=== PATIENT | female | born 1950 | race Hispanic/Latino ===

== ENCOUNTER 2017-11-14 12:35 | Observation (INO) | payer MEDICARE ==
[~2017-11-14] VITALS: Ht 149.9 cm; Wt 57.7 kg
[~2017-11-14 12:35] MED LIST: CARVEDILOL12.5 MG PO; CITALOPRAM HBR20 MG PO; CRESTOR10 MG PO; FERROUS SULFAT325 MG PO; HUMALOG100 UNIT/1 SC; LISINOPRIL2.5 MG PO; METOCLOPRAM5 MG/5 ML PO; NEPHRO-VITE TABL1 EA PO; PANTOPRAZOLE SO40 MG PO
[2017-11-14] MEDS ORDERED: SODIUM CHLORIDE 0.9% 1000ML 1,000 ML IV STA (12:39)
--- NOTE | 2017-11-14 13:25 | Diagnostic Imaging Report ---
EXAMINATION: CHEST SINGLE (PORTABLE) INDICATION: \S\ERMD ORDER \S\[id number] \S\1250 \S\Y COMPARISON: Chest radiograph 01/19/2017 FINDINGS: AP view TUBES and LINES: None. LUNGS: Lungs are well inflated. Lungs are clear. There is no evidence of pneumonia or pulmonary edema. PLEURA: No pleural effusion or pneumothorax. HEART AND MEDIASTINUM: Aortic arch calcifications. The cardiomediastinal silhouette is otherwise unremarkable. BONES AND SOFT TISSUES: No acute osseous lesion. Soft tissues are unremarkable. UPPER ABDOMEN: No free air under the diaphragm. IMPRESSION: No acute thoracic abnormality. Signed by: DR. Nathaniel Cuevas MD on 11/14/2017 1:21 PM
[2017-11-14 13:37] LABS: BASOPHILS % 0.4 % (0.0-1.0); EOSINOPHILS # (AUTO) 0.1 (0.0-0.4); EOSINOPHILS % 1.3 % (0.0-6.0); HEMATOCRIT 30.5 % (34.2-44.1); LYMPHOCYTES # (AUTO) 1.2 (1.0-3.2); LYMPHOCYTES % 15.4 % (18.0-39.1); MEAN CORPUSCULAR HEMOGLOBIN 31.3 pg (28-32); MEAN CORPUSCULAR HGB CONC 36.1 g/dL (31-35); MEAN CORPUSCULAR VOLUME 86.6 fL (81-99); MONOCYTES # (AUTO) 0.7 (0.2-0.8); MONOCYTES % 8.5 % (4.4-11.3); NEUTROPHILS # (AUTO) 5.8 (2.1-6.9); NEUTROPHILS % 74.1 % (38.7-80.0); PLATELET COUNT 124 x10e3/uL (140-360); RED BLOOD COUNT 3.52 x10e6/uL (3.6-5.1); RED CELL DISTRIBUTION WIDTH 12.3 % (11.7-14.4)
[2017-11-14 13:50] LABS: INR 1.14; PROTHROMBIN TIME 13.7 seconds (11.9-14.5)
[2017-11-14 13:51] LABS: PARTIAL THROMBOPLASTIN TIME 20.7 seconds (23.8-35.5)
--- NOTE | 2017-11-14 13:55 | Diagnostic Imaging Report ---
Exam: Head CT without contrast History: Syncope and fall, rule out bleed and mass. Comparison studies: None Technique: Axial images were obtained from the skull base to the vertex. Coronal and sagittal images reconstructed from the axial data. Intravenous contrast: None Findings: Scalp: No abnormalities. Bones: No fractures, blastic or lytic lesions. Brain sulci: Appropriate for age. Ventricles: Normal in size and configuration. No hydrocephalus. Extra-axial spaces: No masses, no fluid collection. Parenchyma: No abnormal densities. No masses, hemorrhage, acute or chronic vascular insults. Sellar/suprasellar region: No abnormalities. Craniocervical junction: Patent foramen magnum. No Chiari one malformation. Incidental findings: Carotid siphons atherosclerotic calcifications.. IMPRESSION: 1. No acute intracranial abnormalities. 2. No intracranial hemorrhage or mass. Signed by: DR Reji Maria M.D. on 11/14/2017 3:59 PM
[2017-11-14 14:00] LABS: ALBUMIN 3.1 g/dL (3.5-5.0); ANION GAP 14.7 mmol/L (8-16); CALCIUM 8.8 mg/dL (8.4-10.2); CREATININE, SERUM 1.47 mg/dL (0.57-1.11); POTASSIUM 3.7 mmol/L (3.5-5.1)
--- NOTE | 2017-11-14 14:02 | Diagnostic Imaging Report ---
History: Syncope and fall. Comparison studies: None Technique: Axial images were obtained through the cervical region. Coronal and sagittal images reconstructed from the axial data. Intravenous contrast: None Findings: Atlantoaxial articulation: Intact Alignment: Straightening of the normal cervical lordosis is likely positional. No acute subluxation. Cervicomedullary junction: No abnormalities. Patent foramen magnum. Soft tissues: No prevertebral edema or hematoma. Carotid artery atherosclerotic calcifications. Vertebrae: No fractures, neoplasm or infection. Degenerative changes: Mild multilevel degenerative changes without significant spinal canal stenosis. IMPRESSION: No acute fracture or subluxation demonstrated within the cervical spine. Signed by: DR Reji Maria M.D. on 11/14/2017 4:00 PM
[2017-11-14 14:08] LABS: B-TYPE NATRIURETIC PEPTIDE2 23.6 pg/mL (0-100)
[2017-11-14 14:30] LABS: BILIRUBIN,URINE NEGATIVE (NEGATIVE); COLOR,URINE YELLOW (YELLOW); KETONES,URINE NEGATIVE (NEGATIVE); LEUKOCYTE ESTERASE ,URINE 2+ (NEGATIVE); NITRITE,URINE NEGATIVE (NEGATIVE); URINE UROBILINOGEN 0.2 mg/dL (0.2 - 1)
[2017-11-14 14:32] LABS: PROTEIN,URINE DIPSTICK TRACE (NEGATIVE)
[2017-11-14] MEDS ORDERED: CALCITONIN-SAL3.7 ML (14:32)
[2017-11-14 14:33] LABS: CLARITY,URINE SL CLOUDY (CLEAR)
[2017-11-14] MEDS ORDERED: PIOGLITAZONE HC45 MG PO (14:33)
[2017-11-14] MEDS ORDERED: ASPIR 8181 MG PO (14:33)
[2017-11-14] MEDS ORDERED: NEPHRO-VITE TABL1 EA PO (14:33)
[2017-11-14 14:43] LABS: BACTERIA,URINE MODERATE /HPF; EPITHELIAL CELLS,URINE MANY /LPF; RBC,URINE 0-5 /HPF (0-5)
[2017-11-14] MEDS ORDERED: DEXTROSE 50% SYRINGE 50 ML IV PRN (15:30)
[2017-11-14] MEDS: SODIUM CHLORIDE 0.9% 1000ML 1,000 ML IV SCH (16:04)
[2017-11-14 16:58] VITALS: BP 117/61
[2017-11-14] MEDS: INSULIN REGULAR, HUMAN 100 UNIT/1 ML 3ML VIAL SQ SCH ×2 (17:16→21:52)
[2017-11-14 17:25] VITALS: BP 117/61
[2017-11-14 20:00] VITALS: BP 117/61
[2017-11-14 20:24] VITALS: BP 117/61
[2017-11-14 21:51] VITALS: BP 117/61
[2017-11-14 22:02] LABS: CREATINE KINASE 36 IU/L (29-168)
[2017-11-15] VITALS (8 sets, daily range): BP systolic 100–156; BP diastolic 57–80
[2017-11-15] MEDS: SODIUM CHLORIDE 0.9% 1000ML 1,000 ML IV SCH ×3 (02:32→16:55)
[2017-11-15 06:17] LABS: CREATINE KINASE MB 1.1 ng/mL (0-5.0)
[2017-11-15] MEDS: INSULIN REGULAR, HUMAN 100 UNIT/1 ML 3ML VIAL SQ SCH ×4 (07:30→20:18)
[2017-11-15] MEDS: CEFTRIAXONE SOD 1 GM VIAL IV SCH (11:55)
[2017-11-15 12:04] LABS: CHOL/HDL RATIO 8.5 (3.0-3.6)
--- NOTE | 2017-11-15 12:42 | History and Physical ---
PRIMARY CARE PHYSICIAN: Dr. Avery. CHIEF COMPLAINT: Elevated blood sugar. HISTORY OF PRESENT ILLNESS: A 66-year-old woman with a history of diabetes mellitus, now developing increasing blood sugar. Patient was walking to a soccer field when she became dizzy and almost passed out, falling. Her daughter caught her, but she did hit her frontal scalp region on the ground and a nearby car. She is admitted for further evaluation and management. Patient does admit to a syncopal episode in the past. 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 PAST SURGICAL HISTORY: Hysterectomy, tonsillectomy, appendectomy. ALLERGIES: PER THE ELECTRONIC MEDICAL RECORDS. FAMILY HISTORY/SOCIAL HISTORY: Patient is . She has 3 children. No alcohol, illicit drugs or cigarettes. MEDICATIONS: Per the electronic medical records. Medications reviewed. REVIEW OF SYSTEMS: Denies any dizziness, chest pain. VITAL SIGNS: Reviewed. PHYSICAL EXAMINATION GENERAL APPEARANCE: A tired-appearing woman resting in bed. HEENT: Anicteric. CARDIOVASCULAR: Normal S1/S2. LUNGS: Moderate breath sounds. ABDOMEN: Soft, nontender, nondistended. EXTREMITIES: No edema. SKIN: Dry. PSYCHIATRIC: Normal affect. NEUROLOGICALLY: Alert and oriented x3. Moving all extremities. LABS: Reviewed. ASSESSMENT AND PLAN: This is a 66-year-old woman. 1. Presyncope. She did not pass out. She had an echocardiogram last year which showed normal left ventricular ejection fraction. We can obtain an ultrasound of the carotids on this occasion to see if those are clear. 2. Diabetes mellitus type 2. Obtain hemoglobin A1c and lipid panel. 3. Acute kidney injury. Rehydrate, then reassess. 4. Urinary tract infection. Treat with antibiotics and follow up cultures. 5. Normocytic anemia, mild. Will follow. 6. Physical deconditioning. Physical therapy consultation. 7. CT scan imaging of the head. Negative for any acute abnormality or fracture. 8. Prophylaxis. Use PPI and SCDs. 9. Disposition. Monitor closely. Obtain ultrasound of the carotids. Physical therapy consultation. Discharge planning. Job#: [id number] [place]
[2017-11-15] MEDS: CARVEDILOL 12.5 MG TAB PO SCH (16:29)
[2017-11-15] MEDS ORDERED: SIMVASTATIN 40 MG TAB PO SCH (21:00)
[2017-11-16] VITALS (8 sets, daily range): BP systolic 126–176; BP diastolic 63–112
[2017-11-16] MEDS: SODIUM CHLORIDE 0.9% 1000ML 1,000 ML IV SCH ×3 (01:38→15:29)
--- NOTE | 2017-11-16 05:51 | Progress Note ---
DATE: November 16, 2017 TIME: 5:22 a.m. OVERNIGHT: No events. Ultrasound with possible narrowing of the carotid. REVIEW OF SYSTEMS: Denies any dizziness or chest pain. PHYSICAL EXAMINATION VITAL SIGNS: Reviewed. GENERAL: A tired-appearing woman resting in bed. HEENT: Anicteric. CARDIOVASCULAR: Normal S1 and S2. LUNGS: Moderate breath sounds. ABDOMEN: Soft, nontender and nondistended. EXTREMITIES: No edema or calf tenderness. NEUROLOGICAL: Alert and oriented times 3. Moving all extremities. SKIN: Dry. PSYCHIATRIC: Normal affect. LABS: Reviewed. MEDICATIONS: Reviewed. ASSESSMENT: A 66-year-old woman with: 1. Presyncope. 2. Right carotid disease. 3. Diabetes mellitus, type 2. 4. Acute kidney injury. 5. Urinary tract infection. 6. Normocytic anemia. 7. Physical deconditioning. PLAN 1. Ultrasound suggestive of possible disease of the right carotid. Will obtain renal function now. If GFR is more than 50, will obtain a CTA of the neck to further evaluate. 2. Continue physical therapy. 3. Diabetes is poor controlled. Hemoglobin A1c is 19.5. The patient is to be started on insulin today. Will start on insulin Levemir 7 units daily. The patient was on insulin Lispro at home. 4. LDL is 149 and triglycerides 222. The patient is allergic to simvastatin. Therefore, will use colestipol 1 g b.i.d. Will also add Zetia 10 mg daily for uncontrolled cholesterol. 5. Follow up urine culture. 6. Possible CTA later today. Job#: [id number] NICOLE
[2017-11-16 06:23] LABS: BASOPHILS % 0.2 % (0.0-1.0); EOSINOPHILS # (AUTO) 0.2 (0.0-0.4); EOSINOPHILS % 2.9 % (0.0-6.0); HEMATOCRIT 30.5 % (34.2-44.1); HEMOGLOBIN 10.2 g/dL (12.0-16.0); LYMPHOCYTES # (AUTO) 2.1 (1.0-3.2); LYMPHOCYTES % 35.6 % (18.0-39.1); MEAN CORPUSCULAR HEMOGLOBIN 30.6 pg (28-32); MEAN CORPUSCULAR HGB CONC 33.4 g/dL (31-35); MEAN CORPUSCULAR VOLUME 91.6 fL (81-99); MONOCYTES # (AUTO) 0.7 (0.2-0.8); MONOCYTES % 11.2 % (4.4-11.3); NEUTROPHILS % 49.9 % (38.7-80.0); PLATELET COUNT 110 x10e3/uL (140-360); RED BLOOD COUNT 3.33 x10e6/uL (3.6-5.1); RED CELL DISTRIBUTION WIDTH 12.8 % (11.7-14.4)
[2017-11-16 06:52] LABS: ANION GAP 8.8 mmol/L (8-16); CALCIUM 7.6 mg/dL (8.4-10.2); CREATININE, SERUM 0.97 mg/dL (0.57-1.11); POTASSIUM 3.8 mmol/L (3.5-5.1)
[2017-11-16] MEDS: INSULIN REGULAR, HUMAN 100 UNIT/1 ML 3ML VIAL SQ SCH ×4 (07:30→21:10)
[2017-11-16] MEDS: EZETIMIBE 10 MG TAB PO SCH (08:11)
[2017-11-16] MEDS: CARVEDILOL 12.5 MG TAB PO SCH ×2 (08:11→21:15)
[2017-11-16] MEDS: PANTOPRAZOLE SOD 40 MG TABEC PO SCH (08:11)
[2017-11-16] MEDS: ASPIRIN 81 MG CHEW TAB PO SCH (08:11)
[2017-11-16] MEDS: COLESTIPOL HCL 1 G TAB PO SCH ×2 (08:11→21:15)
[2017-11-16] MEDS: CITALOPRAM HYDROBROMIDE 20 MG TAB PO SCH (08:11)
[2017-11-16] MEDS: FERROUS SULFATE 325 MG TAB PO SCH (08:11)
[2017-11-16] MEDS: INSULIN DETEMIR 100 UNIT/ML PEN SQ SCH (08:12)
[2017-11-16] MEDS: CEFTRIAXONE SOD 1 GM VIAL IV SCH (10:30)
[2017-11-16] MEDS ORDERED: SODIUM CHLORIDE 0.9% 50ML 50 ML ONE (13:52)
[2017-11-16] MEDS ORDERED: IOPAMIDOL 370 MG/ML 200 ML INFUS..BTL INJ ONE (13:53)
[2017-11-17 00:04] VITALS: BP 140/65
[2017-11-17] MEDS: SODIUM CHLORIDE 0.9% 1000ML 1,000 ML IV SCH (01:05)
[2017-11-17 04:01] VITALS: BP 149/71
[2017-11-17] MEDS ORDERED: COLESTID1 G PO (06:17)
[2017-11-17] MEDS ORDERED: Insulin Detemir SQ (06:17)
[2017-11-17] MEDS ORDERED: ZETIA10 MG PO (06:17)
[2017-11-17 07:00] VITALS: BP 146/71
[2017-11-17] MEDS: INSULIN REGULAR, HUMAN 100 UNIT/1 ML 3ML VIAL SQ SCH ×2 (07:30→11:30)
[2017-11-17 08:00] VITALS: BP 146/71
[2017-11-17] MEDS: ASPIRIN 81 MG CHEW TAB PO SCH (08:14)
[2017-11-17] MEDS: COLESTIPOL HCL 1 G TAB PO SCH (08:14)
[2017-11-17] MEDS: CITALOPRAM HYDROBROMIDE 20 MG TAB PO SCH (08:14)
[2017-11-17] MEDS: CARVEDILOL 12.5 MG TAB PO SCH (08:15)
[2017-11-17] MEDS: FERROUS SULFATE 325 MG TAB PO SCH (08:15)
[2017-11-17] MEDS: PANTOPRAZOLE SOD 40 MG TABEC PO SCH (08:15)
[2017-11-17] MEDS: EZETIMIBE 10 MG TAB PO SCH (08:15)
[2017-11-17] MEDS: INSULIN DETEMIR 100 UNIT/ML PEN SQ SCH (08:15)
--- NOTE | 2017-11-17 10:11 | Diagnostic Imaging Report ---
History:Carotid disease, Comparison studies:None Technique: Axial images were obtained from the thoracic inlet. Coronal and sagittal images reconstructed from the axial data. Intravenous contrast: 100 cc of Omnipaque 300. Findings: Percentage of stenosis will be based on the NASCET criteria Aortic arch and major vessels: Patent. Nonstenotic atherosclerotic calcifications. Common origin of the brachiocephalic trunk and left common carotid artery. Common carotid arteries: Patent. No abnormalities. Right internal carotid artery: Patent. Calcified and noncalcified plaque at the bulb results in 40-65% stenosis. Nonstenotic atherosclerotic calcifications at the carotid siphons Left internal carotid artery: Patent. Atherosclerotic calcifications of the bulb and proximal internal carotid artery cervical segment results in less than 20% stenosis. Retropharyngeal course of the cervical segment. Atherosclerotic calcifications of the carotid siphons with less than 10% stenosis. Right vertebral artery: Patent. No abnormalities. Left vertebral artery: Patent. No abnormalities. Basilar artery: Patent. No abnormalities. Posterior cerebral arteries: Patent. No abnormalities. Anatomical variants: Acom: Patent . Pcoms: Not visualized on the lateral right. Hypoplastic left. Vertebral arteries: Col-dominant IMPRESSION: Cervical CTA: 1. Calcified and noncalcified plaque results in moderate stenosis of the right carotid bulb. 2. No other significant stenosis of the neck arteries Intracranial CTA: 1. Atherosclerotic calcifications of the carotid siphons without significant stenosis. The remaining intracranial vasculature is unremarkable. Signed by: DR Reji Maria M.D. on 11/17/2017 10:07 AM
[2017-11-17] MEDS: CEFTRIAXONE SOD 1 GM VIAL IV SCH (11:49)
[2017-11-17 11:50] VITALS: BP 113/58
--- NOTE | 2017-11-18 08:51 | Progress Note ---
DATE: November 16, 2017 TIME: 7 a.m. OVERNIGHT: No events. REVIEW OF SYSTEMS: Denies dizziness. PHYSICAL EXAMINATION VITAL SIGNS: Reviewed. GENERAL: A tired-appearing woman resting in bed. HEENT: Anicteric. CARDIOVASCULAR: Normal S1 and S2. LUNGS: Moderate breath sounds. ABDOMEN: Soft and nontender. EXTREMITIES: No edema. SKIN: Dry. PSYCHIATRIC: Normal affect. LABS: Reviewed. MEDICATIONS: Reviewed. ASSESSMENT: A 66-year-old woman with: 1. Presyncope. 2. Diabetes mellitus, type 2. 3. Urinary tract infection. 4. Normocytic anemia. 5. Physical deconditioning. PLAN 1. Continue physical therapy. 2. Continue diabetes management. 3. Follow up hemoglobin A1c and lipid panel. 4. Continue antibiotics for urinary tract infection. 5. Continue to follow up labs. Job#: [id number] NICOLE
--- NOTE | 2017-11-18 09:02 | Discharge Summary ---
PRINCIPAL DIAGNOSES 1. Presyncope. 2. Diabetes mellitus, type 2. 3. Acute kidney injury. 4. Urinary tract infection. 5. Normocytic anemia. 6. Physical deconditioning. SECONDARY DIAGNOSIS: Diabetes mellitus, type 2. CHIEF COMPLAINT: Elevated blood sugar. HISTORY OF PRESENT ILLNESS: A 66-year-old woman with elevated blood sugar. Refer to the H and P for further details. HOSPITAL COURSE: Patient was treated and medications were adjusted. Glucose improved. Hemoglobin A1c was 19.5 and poorly controlled. Patient is on Levemir regimen. Was treated with antibiotics for urinary tract infection. Will be discharged with Keflex. DISCHARGE MEDICATIONS: Per electronic medical record and include Keflex. FOLLOWUP: Primary care doctor in 1 week. CONDITION ON DISCHARGE: Stable and improving. DISCHARGE LOCATION: Home. EITAN CROOK MD Job#: [id number] [place]
== END 2017-11-17 15:30 | disposition home or self-care (01) ==
LOC: ER 12:35 → ERHOLD 15:34 → IMCU 16:25
PROVIDERS: ADMIT Internal Medicine; ATTEND Internal Medicine
DX: E11.65 Type 2 diabetes mellitus with hyperglycemia (principal); Z79.4 Long term (current) use of insulin; N39.0 Urinary tract infection, site not specified; N17.9 Acute kidney failure, unspecified; D64.9 Anemia, unspecified; R55 Syncope and collapse; R53.81 Other malaise; Z86.73 Personal history of transient ischemic attack (TIA), and cerebral infarction without residual deficits
CPT/HCPCS: 36415 ×4; 70450; 70496; 70498; 71045; 72125; 80048; 80053; 80061; 81001; 82550 ×2; 82553 ×2; 82948 ×4; 83036; 83605; 83880; 84484 ×2; 85025 ×2; 85610; 85730; 87086; 87400; 93005; 93880; 96372; 97116; 97161; 99284; G0378 ×4; G8978; G8979; G8980; J0696 ×3; J7030 ×4; Q9967

== ENCOUNTER 2018-07-24 14:40 | Emergency (ER) | payer MEDICARE ==
[~2018-07-24] VITALS: Ht 149.9 cm; Wt 52.2 kg
[~2018-07-24 14:40] MED LIST changes: +ASPIR 8181 MG PO; +CALCITONIN-SAL3.7 ML; +COLESTID1 G PO; +Insulin Detemir SQ; +PIOGLITAZONE HC45 MG PO; +ZETIA10 MG PO
--- OUTSIDE RECORDS SUMMARY | 2018-07-24 14:45 | XMS REPORT | Summary of Care ---
Author Author [facility] Organization [facility] Address Unknown Phone Unavailable Encounter GABRIELLA Ferrara(CAYLA) [id number] Date(s): 11/27/15 - 11/27/15 [facility] [address] [place] [address]- Discharge Disposition: Home Attending Physician: Genet Schmidt MD Admitting Physician: Genet Schmidt MD Referring Physician: Genet Schmidt MD Vital Signs No data available for this section Problem List Condition Effective Dates Status Health Status Informant Arthritis(Confirmed) Resolved Cholecystitis(Confir Resolved med) DM (diabetes Active mellitus), type 2(Confirmed) HTN Active (hypertension)(Confi rmed) Hyperlipidemia(Confi Active rmed) Allergies, Adverse Reactions, Alerts Substance Reaction Severity Status Zocor Active Medications No data available for this section Results No data available for this section Immunizations No data available for this section Procedures Procedure Date Related Diagnosis Body Site Appendectomy Cataract surgery1 Cholecystectomy Hysterectomy Tonsillectomy 1both eyes Social History Social History Type Response Substance Abuse Use: None.1 Sexual Sexually active: No. Exercise Exercise duration: 0. Employment/School 2, 3 Alcohol Never Smoking Status Never smoker; Exposure to Tobacco Smoke None; Cigarette Smoking Last 365 Days No; Reg Smoking Cessation Counseling No 1denies 2Retired 3retired Assessment and Plan No data available for this section
--- OUTSIDE RECORDS SUMMARY | 2018-07-24 14:45 | XMS REPORT | Continuity of Care Document ---
Author Author Carter mejia Organization Interface Address Unknown Phone Unavailable Problems Problem Status Onset Date Classification Date Reported Comments Source HYPOGLYCEMIC Active 08/18/2016 [facility] UNK Active 07/07/2016 [facility] THROMBOCYTOPENIA Active 05/23/2016 [facility] Discharge Diagnosis: Drug-induced nausea and vomiting 05/20/2016 05/23/2016 [facility] Discharge Diagnosis: Thrombocytopenia 05/20/2016 05/23/2016 [facility] Discharge Diagnosis: Weakness 05/20/2016 05/23/2016 [facility] VOMITING Active 05/20/2016 [facility] D69.6- THROMBOCYTOPENIA, UNSPECIFIED Active 11/20/2015 [facility] HYPOGLYCEMIA Active 02/23/2014 [facility] Arthritis Resolved Problem 08/21/2016 [facility] Cholecystitis Resolved Problem 08/21/2016 [facility] DM , type 2(<span ID="[id number]</span>) Active Problem 08/21/2016 [facility] HTN (<span ID="[id number]">Confirmed</span>) Active Problem 08/21/2016 [facility] Hyperlipidemia Active Problem 08/21/2016 [facility] Thrombocytopenia Active Problem 08/21/2016 [facility] Hepatitis B Active Problem 08/21/2016 [facility] HYPOGLYCEMIA NOS Active [facility] THROMBOCYTOPENIA, UNSPECIFIED Active [facility] HEMORRHAGIC CONDITION, UNSPECIFIED Active [facility] ENCOUNTER FOR SCREENING FOR MALIGNANT NE Active [facility] ABNORMAL WEIGHT LOSS Active [facility] HYPOGLYCEMIA, UNSPECIFIED Active [facility] Medications Medication Details Route Status Patient Instructions Ordering Provider Order Date Source Prednisone 30 mg, 3 tab, Route: PO, Drug form: TAB, Daily, Dosing Weight 59.091, kg, Start date: 08/19/16 9:00:00 COMMUNICATIONS SUPERVISOR, Duration: 30 day, Stop date: 09/17/16 9:00:00 CSTNotes: (Same as: PredniSONE) Take with food. Inactive 08/19/2016 [facility] Nephro-Mc 1 tab, Route: PO, Drug Form: TAB, Dosing Weight 59.091, kg, Daily, Start date: 08/19/16 9:00:00 COMMUNICATIONS SUPERVISOR, Duration: 30 day, Stop date: 09/17/16 9:00:00 CSTNotes: (Same as: Nephro-Mc Rx and Diatx) Give with food. Inactive 08/19/2016 [facility] ferrous sulfate 325 mg, 1 tab, Route: PO, Drug form: ECTAB, BID, Dosing Weight 59.091, kg, Start date: 08/19/16 9:00:00 COMMUNICATIONS SUPERVISOR, Duration: 30 day, Stop date: 09/17/16 17:00:00 CSTNotes: Give with food. "Do Not Crush" Inactive 08/19/2016 [facility] Famotidine 20 MG Oral Tablet [Pepcid] 20 mg, 1 tab, Route: PO, Drug form: TAB, Daily, Dosing Weight 59.091, kg, Start date: 08/19/16 9:00:00 COMMUNICATIONS SUPERVISOR, Duration: 30 day, Stop date: 09/17/16 9:00:00 CSTNotes: (Same as: Pepcid) Inactive 08/19/2016 [facility] carvedilol 25 mg, 2 tab, Route: PO, Drug form: TAB, BID, Dosing Weight 59.091, kg, Start date: 08/19/16 9:00:00 COMMUNICATIONS SUPERVISOR, Duration: 30 day, Stop date: 09/17/16 21:00:00 CSTNotes: Give with food. (Same As: Coreg) Inactive 08/19/2016 [facility] *Remind pt to bring home med Crestor* *Remind pt to bring home med Crestor*, Reminder, Drug form: MISC, Route: MISC, QSHIFT, 08/19/16 0:00:00 COMMUNICATIONS SUPERVISOR, Duration: 30 day, Stop date: 09/17/16 16:00:00 COMMUNICATIONS SUPERVISOR Inactive 08/19/2016 [facility] Crestor 40 mg, Route: PO, Drug form: TAB, Bedtime, Dosing Weight 59.091, kg, Start date: 08/18/16 21:00:00 COMMUNICATIONS SUPERVISOR, Duration: 30 day, Stop date: 09/16/16 21:00:00 COMMUNICATIONS SUPERVISOR No Longer Active 08/19/2016 [facility] Metoclopramide 5 MG Oral Tablet 5 mg, 1 tab, Route: PO, Drug form: TAB, Bedtime, Dosing Weight 59.091, kg, Start date: 08/18/16 21:00:00 COMMUNICATIONS SUPERVISOR, Duration: 30 day, Stop date: 09/16/16 21:00:00 CSTNotes: (Same as: Reglan) Take 30 min before meals No Longer Active 08/19/2016 [facility] Saline Flush 0.9% 10 mL, Route: IVP, Drug Form: INJ, Dosing Weight 59.091, kg, PRN, PRN Line Flush, Start date: 08/18/16 10:28:00 COMMUNICATIONS SUPERVISOR, Duration: 30 day, Stop date: 09/17/16 10:27:00 CSTNotes: (Same as: BD Posiflush) No Longer Active 08/18/2016 [facility] Dextrose 12.5 mg, IVPB, ONCE, 0 Refill(s) Active 07/23/2016 [facility] Dextrose 12.5 mg, Route: IVPB, ONCE, Dosing Weight 60, kg, Priority: STAT, Start date: 07/23/16 10:27:00 CDT, Stop date: 07/23/16 10:27:00 CDT Inactive 07/23/2016 [facility] Sodium Chloride 0.154 MEQ/ML Injectable Solution 1,000 mL, Rate: 25 ml/hr, Infuse over: 40 hr, Route: IV, Dosing Weight 60 kg, Total Volume: 1,000, Start date: 07/23/16 7:03:00 CDT, Duration: 30 day, Stop date: 08/22/16 7:02:00 COMMUNICATIONS SUPERVISOR Inactive 07/23/2016 [facility] 1.5 ML Insulin Glargine 300 UNT/ML Prefilled Syringe [Toujeo] 80 unit, SUB-Q, Bedtime, 0 Refill(s) Active 07/16/2016 [facility] Ondansetron 4 MG Oral Tablet [Zofran] 4 mg=1 tab, PO, BID, X 5 day, # 10 tab, 0 Refill(s), Pharmacy: [facility] [id number] Active 05/20/2016 [facility] Sodium Chloride 0.154 MEQ/ML Injectable Solution 1,000 mL, 2,000 ml/hr, Infuse Over: 30 minutes, Route: IV, 1,000, Drug form: INJ, ONCE, Priority: STAT, Dosing Weight 56.364 kg, Start date: 05/20/16 17:28:00 CDT, Duration: 1 doses or times, Stop date: 05/20/16 17:28:00 CDT Inactive 05/20/2016 [facility] Ondansetron 4 mg, 2 mL, Route: IVP, Drug form: INJ, ONCE, Dosing Weight 56.364, kg, Priority: STAT, Start date: 05/20/16 17:28:00 CDT, Stop date: 05/20/16 17:28:00 CDTNotes: (Same as: Isamar) MEDICATION WASTE Product Size: 4 mg Product Wasted: ___ mg Inactive 05/20/2016 [facility] Saline Flush 0.9% 10 mL, Route: IVP, Drug Form: INJ, Dosing Weight 56.364, kg, PRN, PRN Line Flush, Start date: 05/20/16 17:28:00 CDT, Duration: 30 day, Stop date: 06/19/16 17:27:00 CDTNotes: (Same as: BD Posiflush) Inactive 05/20/2016 [facility] Famotidine 20 MG Oral Tablet [Pepcid] 20 mg=1 tab, PO, BID, # 60 tab, 0 Refill(s), Pharmacy: [facility] [id number] Active 04/28/2016 [facility] predniSONE 10 mg oral tablet 30 mg=3 tab, PO, Daily, # 90 tab, 0 Refill(s), Pharmacy: [facility] [id number] Active 04/28/2016 [facility] Crestor 40 mg, Route: PO, Drug form: TAB, Bedtime, Dosing Weight 50.54, kg, Start date: 04/25/16 21:00:00 CDT, Duration: 30 day, Stop date: 05/24/16 21:00:00 CDT No Longer Active 04/26/2016 [facility] Levemir 30 unit, 0.3 mL, Route: SUB-Q, Drug form: INJ, Bedtime, Dosing Weight 50.54, kg, Start date: 04/25/16 21:00:00 CDT, Duration: 30 day, Stop date: 05/24/16 21:00:00 CDTNotes: Same as Levemir Do not hold i nsulin without contacting prescriber WASTE: F/P - Black; E - Municipal Trash Bin "single patient use only" No Longer Active 04/26/2016 [facility] Levemir 10 unit, SUB-Q, Before Breakfast, 0 Refill(s) Active 04/25/2016 [facility] Metoclopramide 5 MG Oral Tablet 5 mg=1 tab, PO, Bedtime, 0 Refill(s) Active 04/25/2016 [facility] Humalog 30 unit, SUB-Q, TID-Before Meals, 0 Refill(s) Active 04/25/2016 [facility] ferrous sulfate 325 mg oral enteric coated tablet 325 mg=1 tab, PO, BID, 0 Refill(s) Active 04/25/2016 [facility] ferrous sulfate PO, 0 Refill(s) Active 04/25/2016 [facility] Nephro-Mc 1 tab, PO, Daily, 0 Refill(s) Active 04/25/2016 [facility] Aspirin 81 mg, PO, Daily, 0 Refill(s) Active 04/25/2016 [facility] NovoLog 25 unit, 0.25 mL, Route: SUB-Q, Drug form: SOLN, ONCE, Dosing Weight 50.54, kg, Start date: 04/25/16 17:13:00 CDT, Stop date: 04/25/16 17:13:00 CDTNotes: Roll in palms of hands gently; Do not shake vig orously. (Same as: NovoLOG) "single patient use only" WASTE: F/P - Black; E - Municipal Trash Bin Stable for 28 days at room temperature. Expires in days from Date Inactive 04/25/2016 [facility] NovoLog 10 unit, 0.1 mL, Route: SUB-Q, Drug form: SOLN, TID-Before Meals, Dosing Weight 50.54, kg, Start date: 04/25/16 16:30:00 CDT, Duration: 30 day, Stop date: 05/25/16 11:30:00 CDTNotes: Roll in palms of hands gently; Do not shake vigorously. (Same as: NovoLOG) "single patient use only" WASTE: F/P - Black; E - Municipal Trash Bin Stable for 28 days at room temperature. Expires in days from Date No Longer Active 04/25/2016 [facility] K-Dur 20 40 mEq, 2 tab, Route: PO, Drug form: ERTAB, ONCE, Dosing Weight 50.54, kg, Start date: 04/25/16 15:19:00 CDT, Stop date: 04/25/16 15:19:00 CDTNotes: (Same as: K-Dur 20) "Do Not Crush" With food and full glass of water Inactive 04/25/2016 [facility] aspirin 81 mg tablet, chewable 40.5 mg, 0.5 tab, Route: PO, Drug form: CHEWTAB, Daily, Dosing Weight 50.54, kg, Start date: 04/25/16 11:00:00 CDT, Duration: 30 day, Stop date: 05/25/16 9:00:00 CDTNotes: Take with food. No Longer Active 04/25/2016 [facility] Zofran 4 mg, 2 mL, Route: IVP, Drug form: INJ, Q4H, Dosing Weight 50.54, kg, PRN Nausea, Start date: 04/25/16 10:15:00 CDT, Duration: 30 day, Stop date: 05/25/16 10:14:00 CDTNotes: (Same as: Zofran) MEDICATION WASTE Product Size: 4 mg Product Wasted: ___ mg No Longer Active 04/25/2016 [facility] Tylenol 650 mg, 20.3 mL, Route: PO, Drug form: LIQ, Q6H, Dosing Weight 50.54, kg, PRN Other -See Comment, Start date: 04/25/16 10:15:00 CDT, Duration: 30 day, Stop date: 05/25/16 10:14:00 CDT, fever, pain, head acheNotes: Max [id number]/day (4 gm/day). (Same as: Tylenol) No Longer Active 04/25/2016 [facility] Restoril 15 mg, Route: PO, Drug form: CAP, Bedtime, Dosing Weight 50.54, kg, PRN Sleep, Start date: 04/25/16 10:15:00 CDT, Duration: 30 day, Stop date: 05/25/16 10:14:00 CDT Inactive 04/25/2016 [facility] Acetaminophen 325 MG / Hydrocodone Bitartrate 5 MG Oral Tablet [Maud 5/325] 1 tab, Route: PO, Drug Form: TAB, Dosing Weight 50.54, kg, Q4H, PRN Other -See Comment, Start date: 04/25/16 10:14:00 CDT, Duration: 30 day, Stop date: 05/25/16 10:13:00 CDTNotes: (Same as: Maud 325/5) Do not exceed 4gm/day of acetaminophen. No Longer Active 04/25/2016 [facility] Miralax 17 gm, 1 pkt, Route: PO, Drug form: PWDR, Daily, Dosing Weight 50.54, kg, PRN Constipation, Start date: 04/25/16 10:14:00 CDT, Duration: 30 day, Stop date: 05/25/16 10:13:00 CDTNotes: Dissolve in 8 oz of water or juice. (Same as: Miralax) No Longer Active 04/25/2016 [facility] Clonidine Hydrochloride 0.1 MG Oral Tablet 0.1 mg, 1 tab, Route: PO, Drug form: TAB, Q6H, Dosing Weight 50.54, kg, PRN Elevated BP, Start date: 04/25/16 10:14:00 CDT, Duration: 30 day, Stop date: 05/25/16 10:13:00 CDT, SBP > 165Notes: (Same As: Catapres) No Longer Active 04/25/2016 [facility] Robaxin 500 mg, Route: PO, Q8H, Dosing Weight 50.54, kg, Start date: 04/25/16 8:00:00 CDT, Duration: 30 day, Stop date: 05/25/16 0:00:00 CDT Inactive 04/25/2016 [facility] Zofran 4 mg, Route: IV, Q4H, Dosing Weight 50.54, kg, Start date: 04/25/16 4:00:00 CDT, Duration: 30 day, Stop date: 05/25/16 0:00:00 CDT Inactive 04/25/2016 [facility] Tylenol 650 mg, 2 tab, Route: PO, Drug form: TAB, Q6H, Dosing Weight 50.54, kg, PRN Headache 1-5, Start date: 04/25/16 1:49:00 CDT, Duration: 30 day, Stop date: 05/25/16 1:48:00 CDTNotes: Do not exceed 4 gm/day. (Same as: Tylenol) No Longer Active 04/25/2016 [facility] Acetaminophen 325 MG / Hydrocodone Bitartrate 5 MG Oral Tablet [Maud 5/325] 2 tab, Route: PO, Drug Form: TAB, Dosing Weight 50.54, kg, Q4H, PRN Pain Score 4-6, Start date: 04/25/16 1:48:00 CDT, Duration: 30 day, Stop date: 05/25/16 1:47:00 CDTNotes: (Same as: Maud 325/5) Do not exceed 4gm/day of acetaminophen. No Longer Active 04/25/2016 [facility] Zofran 4 mg, 2 mL, Route: IV, Drug form: INJ, Q4H, Dosing Weight 50.54, kg, PRN as needed for nausea/vomiting, Start date: 04/25/16 1:48:00 CDT, Duration: 30 day, Stop date: 05/25/16 1:47:00 CDTNotes: (Same as: Zofran) MEDICATION WASTE Product Size: 4 mg Product Wasted: ___ mg No Longer Active 04/25/2016 [facility] Robaxin 500 mg, 1 tab, Route: PO, Drug form: TAB, Q8H, Dosing Weight 50.54, kg, PRN Cramps, Start date: 04/25/16 1:47:00 CDT, Duration: 30 day, Stop date: 05/25/16 1:46:00 CDTNotes: (Same as:Robaxin) No Longer Active 04/25/2016 [facility] Acetaminophen 325 MG / Hydrocodone Bitartrate 5 MG Oral Tablet [Maud 5/325] 2 tab, Route: PO, Drug Form: TAB, Dosing Weight 50.54, kg, Q4H, PRN Pain Score 4-6, Start date: 04/25/16 1:45:00 CDT, Duration: 30 day, Stop date: 05/25/16 1:44:00 CDT Inactive 04/25/2016 [facility] Restoril 15 mg, 1 cap, Route: PO, Drug form: CAP, Bedtime, Dosing Weight 50.54, kg, PRN Sleep, Start date: 04/25/16 1:45:00 CDT, Duration: 30 day, Stop date: 05/25/16 1:44:00 CDTNotes: (Same As: Restoril) No Longer Active 04/25/2016 [facility] Immunoglobulins, Intravenous 100 MG/ML Injectable Solution 50 gm, 500 mL, Route: IVPB, Drug form: SOLN, Q24H, Dosing Weight 50.54, kg, Start date: 04/25/16 0:00:00 CDT, Duration: 2 doses or times, Stop date: 04/26/16 0:00:00 CDTNotes: Begin at 0.03 grams/kg/hr=0.5 mg/kg/min. Double the rate every 30 minutes as tolerated. Maximum recommended infusion rate: 0.48 grams/kg/hr=8 mg/kg/min for adults: Wise body weight of XX kg used for XX gm/kg per protocol WASTE: F/P - Red; E -Red Lot # Mfg: "blood product derivative" No Longer Active 04/25/2016 [facility] carvedilol 25 mg, 2 tab, Route: PO, Drug form: TAB, BID, Dosing Weight 50.54, kg, Start date: 04/24/16 23:28:00 CDT, Duration: 30 day, Stop date: 05/24/16 9:00:00 CDTNotes: Give with food. (Same As: Coreg) No Longer Active 04/25/2016 [facility] Diphenhydramine 25 mg, 1 tab, Route: PO, Drug form: TAB, ONCALL, Dosing Weight 50.54, kg, PRN Blood Transfusion, Start date: 04/24/16 23:22:00 CDT, Stop date: 05/24/16 23:21:00 CDT No Longer Active 04/25/2016 [facility] Tylenol 650 mg, 2 tab, Route: PO, Drug form: TAB, ONCALL, Dosing Weight 50.54, kg, PRN Blood Transfusion, Start date: 04/24/16 23:21:00 CDT, Duration: 30 day, Stop date: 05/24/16 23:20:00 CDTNotes: Do not exceed 4 gm/day. (Same as: Tylenol) No Longer Active 04/25/2016 [facility] Aspirin 81 MG Chewable Tablet 40.5 mg, 0.5 tab, Route: PO, Drug form: CHEWTAB, Q24H, Dosing Weight 50.54, kg, Start date: 04/24/16 23:00:00 CDT, Duration: 30 day, Stop date: 05/23/16 11:00:00 CDTNotes: Take with food. No Longer Active 04/25/2016 [facility] Lipitor 80 mg, 2 tab, Route: PO, Drug form: TAB, Bedtime, Start date: 04/24/16 23:00:00 CDT, Duration: 30 day, Stop date: 05/23/16 21:00:00 CDTNotes: (Same as: Lipitor) No Longer Active 04/25/2016 [facility] Insulin, Aspart, Human 3 unit, 0.03 mL, Route: SUB-Q, Drug form: SOLN, Bedtime, Dosing Weight 50.54, kg, PRN Blood Glucose Results, Start date: 04/24/16 22:30:00 CDT, Duration: 30 day, Stop date: 05/24/16 22:29:00 CDTNotes: Roll in palms of hands gently; Do not shake vigorously. (Same as: NovoLOG) "single patient use only" WASTE: F/P - Black; E - Municipal Trash Bin Stable for 28 days at room temperature. Expires in days from Date No Longer Active 04/25/2016 [facility] Dextrose 50% Syringe 12.5 gm, 25 mL, Route: IVP, Drug Form: INJ, Dosing Weight 50.54, kg, PRN, PRN Blood Glucose Results, Start date: 04/24/16 22:30:00 CDT, Duration: 30 day, Stop date: 05/24/16 22:29:00 CDT No Longer Active 04/25/2016 [facility] Glucagon 1 mg, Route: IM, Drug form: PDR/INJ, PRN, Dosing Weight 50.54, kg, PRN Blood Glucose Results, Start date: 04/24/16 22:30:00 CDT, Duration: 30 day, Stop date: 05/24/16 22:29:00 CDT No Longer Active 04/25/2016 [facility] NovoLOG FlexPen 12 unit, 0.12 mL, Route: SUB-Q, Drug form: SOLN, ONCE, Dosing Weight 50.54, kg, Start date: 04/24/16 22:28:00 CDT, Stop date: 04/24/16 22:28:00 CDTNotes: Roll in palms of hands gently; Do not shake vigorously. (Same as: NovoLOG) "single patient use only" WASTE: F/P - Black; E - Municipal Trash Bin Stable for 28 days at room temperature. Expires in days from Date Inactive 04/25/2016 [facility] insulin aspart 100 units/mL subcutaneous solution 15 unit=0.15 mL, SUB-Q, TID-Before Meals, # 10 mL, 0 Refill(s) Active 03/01/2014 [facility] insulin detemir 100 units/mL subcutaneous solution 30 unit=0.3 mL, SUB-Q, Bedtime, # 10 mL, 0 Refill(s) Active 03/01/2014 [facility] carvedilol 12.5 mg, 1 tab, Route: PO, Drug form: TAB, Q12H, Dosing Weight 64.545, kg, Start date: 02/28/14 21:00:00, Duration: 30 day, Stop date: 03/30/14 9:00:00Notes: Give with food. (Same As: Coreg) No Longer Active 03/01/2014 [facility] Sodium Chloride 0.9% IV 1,000 mL 1,000 mL, Rate: 125 ml/hr, Infuse over: 8 hr, Route: IV, Dosing Weight 64.545 kg, Total Volume: 1,000, Start date: 02/28/14 15:03:00, Duration: 30 day, Stop date: 03/30/14 15:02:00 No Longer Active 02/28/2014 [facility] Sodium Chloride 0.154 MEQ/ML Injectable Solution 125 mL, 125 ml/hr, Infuse Over: 1 hr, Route: IV, Continuous, Priority: STAT, Dosing Weight 64.545 kg, Start date: 02/28/14 15:00:00, Duration: 30 day, Stop date: 03/30/14 14:59:00 Inactive 02/28/2014 [facility] Potassium Chloride 20 mEq, 1 tab, Route: PO, Drug form: ERTAB, ONCE, Dosing Weight 64.545, kg, Start date: 02/28/14 12:03:00, Stop date: 02/28/14 12:03:00Notes: (Same as: K-Dur 20) "Do Not Crush" With food and full glass of water Inactive 02/28/2014 [facility] Potassium Chloride 20 mEq, 1 tab, Route: PO, Drug form: ERTAB, ONCE, Dosing Weight 64.545, kg, Start date: 02/27/14 8:17:00, Stop date: 02/27/14 8:17:00Notes: (Same as: K-Dur 20) "Do Not Crush" With food and full glass of water Inactive 02/27/2014 [facility] Levemir 30 unit, 0.3 mL, Route: SUB-Q, Drug form: INJ, Bedtime, Dosing Weight 64.545, kg, Start date: 02/25/14 21:00:00, Duration: 30 day, Stop date: 03/26/14 21:00:00Notes: Same as Levemir "single patient use only" No Longer Active 02/26/2014 [facility] Prinivil 20 mg, 1 tab, Route: PO, Drug form: TAB, Daily, Start date: 02/24/14 9:00:00, Duration: 30 day, Stop date: 03/25/14 9:00:00Notes: (Same as: Prinivil, Zestril) No Longer Active 02/24/2014 [facility] Hydrochlorothiazide 25 MG / Lisinopril 20 MG Oral Tablet 1 tab, Route: PO, Drug Form: TAB, Dosing Weight 64.545, kg, Daily, Start date: 02/24/14 9:00:00, Duration: 30 day, Stop date: 03/25/14 9:00:00 No Longer Active 02/24/2014 [facility] Aspirin 81 MG Chewable Tablet 40.5 mg, 0.5 tab, Route: PO, Drug form: CHEWTAB, Daily, Dosing Weight 64.545, kg, Start date: 02/24/14 9:00:00, Duration: 30 day, Stop date: 03/25/14 9:00:00Notes: Take with food. No Longer Active 02/24/2014 [facility] hydrochlorothiazide 25 mg oral tablet 25 mg, 1 tab, Route: PO, Drug form: TAB, Daily, Start date: 02/24/14 9:00:00, Duration: 30 day, Stop date: 03/25/14 9:00:00Notes: (Same as: Hydrodiuril) With food. No Longer Active 02/24/2014 [facility] NovoLog 15 unit, 0.15 mL, Route: SUB-Q, Drug form: SOLN, TID-Before Meals, Dosing Weight 64.545, kg, Start date: 02/24/14 7:30:00, Stop date: 03/25/14 16:30:00Notes: Roll in palms of hands gently; Do not shake vigorously. (Same as: NovoLOG) "single patient use only" Stable for 28 days at room temperature. Expires in days from Date No Longer Active 02/24/2014 [facility] Crestor 40 mg, 4 tab, Route: PO, Drug form: TAB, Bedtime, Dosing Weight 64.545, kg, Start date: 02/23/14 21:00:00, Duration: 30 day, Stop date: 03/24/14 21:00:00Notes: (Same As: Crestor) No Longer Active 02/24/2014 [facility] Levemir 25 unit, 0.25 mL, Route: SUB-Q, Drug form: INJ, Q12H, Dosing Weight 64.545, kg, Start date: 02/23/14 21:00:00, Duration: 30 day, Stop date: 03/25/14 9:00:00Notes: Same as Levemir "single patient use only" No Longer Active 02/24/2014 [facility] nitroglycerin 0.4 mg sublingual tablet 0.4 mg, 1 tab, Route: SL, Drug form: TAB, Q5Min, PRN Chest Pain, Start date: 02/23/14 17:20:00, Duration: 30 day, Stop date: 03/25/14 17:19:00Notes: (Same as:Nitroquick, Nitrostat) "Do Not Crush" Sublingual tablet No Longer Active 02/23/2014 [facility] atropine 0.5 mg, 5 mL, Route: IVP, Drug form: INJ, PRN, PRN Bradycardia, Start date: 02/23/14 17:20:00, Duration: 30 day, Stop date: 03/25/14 17:19:00 No Longer Active 02/23/2014 [facility] carvedilol 25 mg, 2 tab, Route: PO, Drug form: TAB, BID, Dosing Weight 64.545, kg, Start date: 02/23/14 17:00:00, Duration: 30 day, Stop date: 03/25/14 9:00:00Notes: Give with food. (Same As: Coreg) No Longer Active 02/23/2014 [facility] Saline Flush 0.9% 5 ml, Route: IVP, Drug Form: INJ, Dosing Weight 64.545, kg, PRN, PRN Line Flush, Start date: 02/23/14 16:52:00, Duration: 30 day, Stop date: 03/25/14 16:51:00Notes: (Same as: BD Posiflush) No Longer Active 02/23/2014 [facility] Sodium Chloride 0.0769 MEQ/ML Injectable Solution 1,000 mL, Rate: 125 ml/hr, Infuse over: 8 hr, Route: IV, Dosing Weight 64.545 kg, Total Volume: 1,000, Start date: 02/23/14 16:52:00, Duration: 30 day, Stop date: 03/25/14 16:51:00 No Longer Active 02/23/2014 [facility] Dextrose 50% Syringe 12.5 gm, 25 mL, Route: IVP, Drug Form: INJ, Dosing Weight 64.545, kg, PRN, PRN Blood Glucose Results, Start date: 02/23/14 16:52:00, Duration: 30 day, Stop date: 03/25/14 16:51:00 No Longer Active 02/23/2014 [facility] Glucagon 1 mg, Route: IM, Drug form: PDR/INJ, PRN, Dosing Weight 64.545, kg, PRN Blood Glucose Results, Priority: STAT, Start date: 02/23/14 16:52:00, Duration: 30 day, Stop date: 03/25/14 16:51:00 No Longer Active 02/23/2014 [facility] Ceftriaxone 1 gm, Route: IVPB, [id number], Dosing Weight 64.545, kg, Start date: 02/23/14 16:00:00, Duration: 30 day, Stop date: 03/24/14 16:00:00Notes: (Same As: Rocephin). Use with 100ml NS mini-bag PLUS and infuse over 30 min No Longer Active 02/23/2014 [facility] Glucagon 1 mg, Route: IM, PRN, Dosing Weight 64.545, kg, PRN Blood Glucose Results, Start date: 02/23/14 14:41:00, Duration: 30 day, Stop date: 03/25/14 14:40:00 Inactive 02/23/2014 [facility] Insulin, Aspart, Human 1 unit, 0.01 mL, Route: SUB-Q, Drug form: SOLN, Bedtime, Dosing Weight 64.545, kg, PRN Blood Glucose Results, Start date: 02/23/14 14:41:00, Duration: 30 day, Stop date: 03/25/14 14:40:00Notes: Roll in palms of hands gently; Do not shake vigorously. (Same as: NovoLOG) "single patient use only" Stable for 28 days at room temperature. Expires in days from Date No Longer Active 02/23/2014 [facility] Dextrose 50% Syringe 12.5 gm, 25 mL, Route: IVP, Drug Form: INJ, Dosing Weight 64.545, kg, PRN, PRN Blood Glucose Results, Start date: 02/23/14 14:41:00, Duration: 30 day, Stop date: 03/25/14 14:40:00 No Longer Active 02/23/2014 [facility] Tylenol 650 mg, Route: PO, Drug form: TAB, ONCE, Dosing Weight 64.545, kg, PRN Fever, Start date: 02/23/14 14:21:00, Stop date: 03/25/14 14:20:00 Inactive 02/23/2014 [facility] Insulin, Regular, Pork Route: SUB-Q, ONCE, Dosing Weight 64.545, kg, Start date: 02/23/14 14:19:00, Stop date: 02/23/14 14:19:00 Inactive 02/23/2014 [facility] Aspirin 81 MG Chewable Tablet 40.5 mg=0.5 tab, PO, Daily, # 30 tab, 0 Refill(s) Active 02/23/2014 [facility] Hydrochlorothiazide 25 MG / Lisinopril 20 MG Oral Tablet 1 tab, PO, Daily, # 30 tab, 0 Refill(s) No Longer Active 02/23/2014 [facility] Saline Flush 0.9% 5 mL, Route: IVP, Drug Form: INJ, Dosing Weight 64.545, kg, PRN, PRN Line Flush, Start date: 02/23/14 8:31:00, Duration: 30 day, Stop date: 03/25/14 8:30:00Notes: Same as: BD Posiflush Sterile No Longer Active 02/23/2014 [facility] Allergies, Adverse Reactions, Alerts Substance Category Reaction Severity Reaction type Status Date Reported Comments Source simvastatin Assertion Drug allergy Active [facility] Zocor Assertion Drug allergy Active [facility] Immunizations Immunization Date Given Site Status Last Updated Comments Source Results Order Name Results Value Reference Range Date Interpretation Comments Source CARDIAC ENZYMES Troponin-I null 0.00 - 0.40 08/18/2016 [facility] CHEM PANEL Calcium Lvl 8.4 mg/dL 8.5 - 10.5 08/18/2016 [facility] CHEM PANEL Total Protein 6.7 g/dL 6.4 - 8.4 08/18/2016 [facility] CHEM PANEL CO2 28 meq/L 24 - 32 08/18/2016 [facility] CHEM PANEL Chloride Lvl 101 meq/L 95 - 109 08/18/2016 [facility] CHEM PANEL Potassium Lvl 4.3 meq/L 3.5 - 5.1 08/18/2016 [facility] CHEM PANEL Sodium Lvl 140 meq/L 135 - 145 08/18/2016 [facility] CHEM PANEL Creatinine Lvl 1.30 mg/dL 0.50 - 1.40 08/18/2016 [facility] CHEM PANEL Glucose Lvl 272 mg/dL 70 - 99 08/18/2016 [facility] CHEM PANEL BUN 18 mg/dL 7 - 22 08/18/2016 [facility] CHEM PANEL Bili Total 0.8 mg/dL 0.2 - 1.3 08/18/2016 [facility] CHEM PANEL ALT 26 unit/L 0 - 65 08/18/2016 [facility] CHEM PANEL Albumin Lvl 3.4 g/dL 3.5 - 5.0 08/18/2016 [facility] CHEM PANEL Alk Phos 71 unit/L 39 - 136 08/18/2016 [facility] CHEM PANEL AST 19 unit/L 0 - 37 08/18/2016 [facility] CHEM PANEL eGFR See Note (08/18/16 10:48 AM) 08/18/2016 [facility] CHEM PANEL A/G Ratio 1.0 0.7 - 1.6 08/18/2016 [facility] CHEM PANEL B/C Ratio 14 6 - 25 08/18/2016 [facility] CHEM PANEL Globulin 3.3 g/dL 2.7 - 4.2 08/18/2016 [facility] CHEM PANEL AGAP 15.3 meq/L 10.0 - 20.0 08/18/2016 [facility] HEMATOLOGY Platelet 158 K/CMM 133 - 450 08/18/2016 [facility] HEMATOLOGY RDW 14.8 % 11.5 - 14.5 08/18/2016 [facility] HEMATOLOGY MPV 9.5 fL 7.4 - 10.4 08/18/2016 [facility] HEMATOLOGY WBC 7.2 K/CMM 3.7 - 10.4 08/18/2016 [facility] HEMATOLOGY Hgb 11.3 g/dL 12.0 - 16.0 08/18/2016 [facility] HEMATOLOGY RBC 3.94 M/CMM 4.20 - 5.40 08/18/2016 [facility] HEMATOLOGY Hct 34.8 % 36.0 - 48.0 08/18/2016 [facility] HEMATOLOGY MCV 88.1 fL 80.0 - 98.0 08/18/2016 [facility] HEMATOLOGY MCHC 32.6 g/dL 32.0 - 36.0 08/18/2016 [facility] HEMATOLOGY MCH 28.7 pg 27.0 - 31.0 08/18/2016 [facility] HEMATOLOGY Monocytes # 0.4 K/CMM 0.0 - 0.8 08/18/2016 [facility] HEMATOLOGY Lymphocytes # 1.1 K/CMM 1.0 - 5.5 08/18/2016 [facility] HEMATOLOGY Eosinophils # 0.1 K/CMM 0.0 - 0.5 08/18/2016 [facility] HEMATOLOGY Segs 77.6 % 45.0 - 75.0 08/18/2016 [facility] HEMATOLOGY Lymphocytes 14.8 % 20.0 - 40.0 08/18/2016 [facility] HEMATOLOGY Monocytes 5.6 % 2.0 - 12.0 08/18/2016 [facility] HEMATOLOGY Segs-Bands # 5.6 K/CMM 1.5 - 8.1 08/18/2016 [facility] HEMATOLOGY Basophils 0.6 % 0.0 - 1.0 08/18/2016 [facility] HEMATOLOGY Eosinophils 1.4 % 0.0 - 4.0 08/18/2016 [facility] URINE AND STOOL UA Turbidity Clear (08/18/16 10:48 AM) Clear 08/18/2016 [facility] URINE AND STOOL UA Bacteria Occasional /HPF None Seen /HPF 08/18/2016 [facility] URINE AND STOOL UA WBC null 0 - 5 08/18/2016 [facility] URINE AND STOOL UA Sq Epi Occasional /LPF Few /LPF 08/18/2016 [facility] URINE AND STOOL UA Leuk Est Negative (08/18/16 10:48 AM) Negative 08/18/2016 [facility] URINE AND STOOL UA pH 7.0 5.0 - 8.0 08/18/2016 [facility] URINE AND STOOL UA Protein 30 mg/dL Negative mg/dL 08/18/2016 [facility] URINE AND STOOL UA Glucose 500 mg/dL Negative mg/dL 08/18/2016 [facility] URINE AND STOOL UA Spec Grav 1.003 <=1.030 08/18/2016 [facility] URINE AND STOOL UA Blood Negative (08/18/16 10:48 AM) Negative 08/18/2016 [facility] URINE AND STOOL UA Nitrite Negative (08/18/16 10:48 AM) Negative 08/18/2016 [facility] URINE AND STOOL UA Ketones Negative mg/dL Negative mg/dL 08/18/2016 [facility] URINE AND STOOL UA Bili Negative *NA* (08/18/16 10:48 AM) Negative 08/18/2016 [facility] URINE AND STOOL UA Color Colorless 08/18/2016 [facility] URINE AND STOOL UA Urobilinogen <=1.0 mg/dL 0.1 - 1.0 08/18/2016 [facility] Brain wo contrast CT Brain wo contrast CT I have reviewed this examination and concur with the interpretation. 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 Coronal and sagittal reconstructions were obtained. Total exam DLP 982 mGy-cm FINDINGS: BRAIN PARENCHYMA: There are normal hebert-white interfaces. No evidence for subarachnoid, intraparenchymal or intraventricular hemorrhage. No significant extra-axial fluid collection, mass effect or shift. No evidence for an acute infarction. No mass lesions identified about the brain. VENTRICLES: Ventricles and sulci are within normal limits for the patient's age. ORBITS, MASTOIDS AND PARANASAL SINUSES: The visualized orbits and paranasal sinuses are unremarkable. The mastoid air cells are clear. SKULL: There are no osseous abnormalities. If there is further concern for intracranial pathology or acute stroke, MRI of the brain may be performed for complete assessment. IMPRESSION: Unremarkable noncontrast head CT. SL: [id number] 08/18/2016 - - Read by: Itz Pendleton MD Dictated Date/time: 08/18/16 13:58 Electronically Signed by: Itz Pendleton MD 08/18/16 13:59 FINAL REPORT - - Read by: Jeancarlos Castillo MD Dictated Date/time: 08/18/16 13:52 Electronically Signed by: Jeancarlos Castillo MD 08/18/16 13:54 FINAL REPORT [facility] BLOOD BANK RESULTS Antibody Scrn Negative (07/16/16 8:45 AM) 07/16/2016 [facility] BLOOD [facility] RESULTS ABO/Rh O POS 07/16/2016 [facility] CHEM PANEL Bili Indirect 0.1 mg/dL 0.0 - 1.0 07/16/2016 [facility] CHEM PANEL Bili Total 0.2 mg/dL 0.2 - 1.3 07/16/2016 [facility] CHEM PANEL Bili Direct 0.1 mg/dL 0.0 - 0.3 07/16/2016 [facility] CHEM PANEL Globulin 3.4 g/dL 2.7 - 4.2 07/16/2016 [facility] CHEM PANEL Alk Phos 71 unit/L 39 - 136 07/16/2016 [facility] CHEM PANEL AST 19 unit/L 0 - 37 07/16/2016 [facility] CHEM PANEL ALT 29 unit/L 0 - 65 07/16/2016 [facility] CHEM PANEL A/G Ratio 0.9 0.7 - 1.6 07/16/2016 [facility] CHEM PANEL Albumin Lvl 3.0 g/dL 3.5 - 5.0 07/16/2016 [facility] CHEM PANEL Total Protein 6.4 g/dL 6.4 - 8.4 07/16/2016 [facility] ELECTROLYTES AGAP 9.1 meq/L 10.0 - 20.0 07/16/2016 [facility] ELECTROLYTES B/C Ratio 14 6 - 25 07/16/2016 [facility] ELECTROLYTES Globulin 3.4 g/dL 2.7 - 4.2 07/16/2016 [facility] ELECTROLYTES A/G Ratio 0.9 0.7 - 1.6 07/16/2016 [facility] ELECTROLYTES eGFR 47 mL/min/1.73m2 07/16/2016 Result Comment: The eGFR is calculated using the CKD-EPI formula. In most young, healthy individuals the eGFR will be >90 mL/min/1.73m2. The eGFR declines with age. An eGFR of 60-89 may be normal in some populations, particularly the elderly, for whom the CKD-EPI formula has not been extensively validated. Use of the eGFR is not recommended in the following populations: Individuals with unstable creatinine concentrations, including patients and those with serious co-morbid conditions. Patients with extremes in muscle mass or diet. The data above are obtained from the National Kidney Disease Education Program (NKDEP) which additionally recommends that when the eGFR is used in patients with extremes of body mass index for purposes of drug dosing, the eGFR should be multiplied by the estimated BMI. [facility] ELECTROLYTES Bili Total 0.2 mg/dL 0.2 - 1.3 07/16/2016 [facility] ELECTROLYTES ALT 29 unit/L 0 - 65 07/16/2016 [facility] ELECTROLYTES AST 17 unit/L 0 - 37 07/16/2016 [facility] ELECTROLYTES Alk Phos 72 unit/L 39 - 136 07/16/2016 [facility] ELECTROLYTES Total Protein 6.4 g/dL 6.4 - 8.4 07/16/2016 [facility] ELECTROLYTES Albumin Lvl 3.0 g/dL 3.5 - 5.0 07/16/2016 [facility] ELECTROLYTES CO2 31 meq/L 24 - 32 07/16/2016 [facility] ELECTROLYTES Calcium Lvl 8.4 mg/dL 8.5 - 10.5 07/16/2016 [facility] ELECTROLYTES Chloride Lvl 100 meq/L 95 - 109 07/16/2016 [facility] ELECTROLYTES Potassium Lvl 4.1 meq/L 3.5 - 5.1 07/16/2016 [facility] ELECTROLYTES Sodium Lvl 136 meq/L 135 - 145 07/16/2016 [facility] ELECTROLYTES BUN 17 mg/dL 7 - 22 07/16/2016 [facility] ELECTROLYTES Creatinine Lvl 1.20 mg/dL 0.50 - 1.40 07/16/2016 [facility] ELECTROLYTES Glucose Lvl 310 mg/dL 70 - 99 07/16/2016 [facility] HEMATOLOGY PTT 27.8 s 22.9 - 35.8 07/16/2016 [facility] HEMATOLOGY PT 14.1 s 12.0 - 14.7 07/16/2016 [facility] HEMATOLOGY INR 1.07 0.85 - 1.17 07/16/2016 [facility] HEMATOLOGY MPV 9.0 fL 7.4 - 10.4 07/16/2016 [facility] HEMATOLOGY Platelet 134 K/CMM 133 - 450 07/16/2016 [facility] HEMATOLOGY MCHC 33.1 g/dL 32.0 - 36.0 07/16/2016 [facility] HEMATOLOGY RDW 14.4 % 11.5 - 14.5 07/16/2016 [facility] HEMATOLOGY Hct 33.1 % 36.0 - 48.0 07/16/2016 [facility] HEMATOLOGY Hgb 11.0 g/dL 12.0 - 16.0 07/16/2016 [facility] HEMATOLOGY RBC 3.69 M/CMM 4.20 - 5.40 07/16/2016 [facility] HEMATOLOGY MCV 89.7 fL 80.0 - 98.0 07/16/2016 [facility] HEMATOLOGY MCH 29.7 pg 27.0 - 31.0 07/16/2016 [facility] HEMATOLOGY WBC 7.6 K/CMM 3.7 - 10.4 07/16/2016 [facility] HEMATOLOGY Lymphocytes # 0.7 K/CMM 1.0 - 5.5 07/16/2016 [facility] HEMATOLOGY Monocytes # 0.3 K/CMM 0.0 - 0.8 07/16/2016 [facility] HEMATOLOGY Eosinophils # 0.1 K/CMM 0.0 - 0.5 07/16/[address] [facility] Segs-Bands # 6.6 K/CMM 1.5 - 8.1 07/16/[address] [facility] Lymphocytes 8.6 % 20.0 - 40.0 07/16/[address] [facility] Segs 86.2 % 45.0 - 75.0 07/16/[address] [facility] Basophils 0.5 % 0.0 - 1.0 07/16/[address] [facility] Eosinophils 1.1 % 0.0 - 4.0 07/16/2016 [facility] HEMATOLOGY Monocytes 3.6 % 2.0 - 12.0 07/16/2016 [facility] IMMUNOLOGY Hep Bs Ag Negative *NA* (07/16/16 8:45 AM) Negative 07/16/2016 [facility] MOLECULAR DIAGNOSTIC Hep B PCR Qnt Not Detected (07/16/16 8:45 AM) 07/16/2016 [facility] MOLECULAR DIAGNOSTIC HBV DNA Log10 null 07/16/2016 [facility] BLOOD BANK RESULTS Platelet product Product available (07/16/16 8:14 AM) 07/16/[address] [facility] Retic Auto 3.1 % 0.5 - 1.5 06/03/[address] [facility] Hgb 10.6 g/dL 12.0 - 16.0 06/03/[address] [facility] MCH 30.9 pg 27.0 - 31.0 06/03/[address] [facility] RBC 3.43 M/CMM 4.20 - 5.40 06/03/[address] [facility] MCV 91.6 fL 80.0 - 98.0 06/03/[address] [facility] Hct 31.4 % 36.0 - 48.0 06/03/[address] [facility] MCHC 33.7 g/dL 32.0 - 36.0 06/03/[address] [facility] Platelet 61 K/CMM 133 - 450 06/03/[address] [facility] RDW 16.2 % 11.5 - 14.5 06/03/[address] [facility] MPV 11.1 fL 7.4 - 10.4 06/03/[address] [facility] WBC 10.5 K/CMM 3.7 - 10.4 06/03/[address] [facility] Atypical Lymphs 0.0 % <=0.0 % 06/03/[address] [facility] RBC Morph Normal (06/03/16 1:03 PM) 06/03/2016 [facility] HEMATOLOGY Plt Morph Normal (06/03/16 1:03 PM) 06/03/[address] [facility] Tot Cell Ct 100 06/03/[address] [facility] Eosinophils 1.0 % 0.0 - 4.0 06/03/2016 [facility] HEMATOLOGY Bands 1.0 % 0.0 - 11.0 06/03/2016 [facility] HEMATOLOGY Segs 66.0 % 45.0 - 75.0 06/03/[address] [facility] Monocytes 3.0 % 2.0 - 12.0 06/03/2016 [facility] HEMATOLOGY Lymphocytes 29.0 % 20.0 - 40.0 06/03/[address] [facility] Eosinophils # 0.1 K/CMM 0.0 - 0.5 06/03/2016 [facility] HEMATOLOGY Segs-Bands # 7.0 K/CMM 1.5 - 8.1 06/03/[address] [facility] Monocytes # 0.3 K/CMM 0.0 - 0.8 06/03/2016 [facility] HEMATOLOGY Lymphocytes # 3.0 K/CMM 1.0 - 5.5 06/03/2016 [facility] Bone Marrow Biopsy or Trocar (VR) Bone Marrow Biopsy or Trocar (VR) Patient Name: REAL CARR : 1950; Age: 65 years y/o Female MR: [id number] Study: Bone Marrow Biopsy or Trocar (VR) 06/03/2016 1:03 PM CDT Ordering Physician: Genet Schmidt MD Clinical Indication: thrombocytopenia; Comparison: None PROCEDURE: Informed consent was obtained from the patient, after which the patient was brought into the examination suite and placed in a prone position on the fluoroscopy table. The left posterior iliac bone was identified, the biopsy trajectory was chosen, and the overlying skin was marked and prepped and draped utilizing all elements of maximal sterile barrier technique. Lidocaine was injected into a focus skin, soft tissues and periosteum. The 11- gauge Oncontrol biopsy needle advanced under fluoroscopic guidance through the anesthetized tract and down to the periosteal lining. The power drill was activated and the biopsy needle was advanced into the bone. 3 cc of bone marrow was aspirated and analyzed by a fire extinguisher technician to confirm appropriate access followed by 10 mL of bone marrow aspirate. The biopsy needle was further advanced 1 to 2 cm, and a core biopsy was obtained and sent for laboratory analysis. The patient tolerated procedure well was taken back to IR recovery in stable fashion. COMPLICATIONS: None PAIN CONTROL: Lidocaine solution was administered locally, as described; Moderate conscious sedation was initiated and maintained with intravenous 2 mg Versed and 50 mcg fentanyl. The patient's vital signs were monitored throughout the procedure by a dedicated nurse. Total sedation time was 14 min. Fluoroscopy time: 0.1 mins. Due to difficulty with the fluoroscopy unit, neither a spot images nor a fluoroscopy screen capture was able to be obtained during the procedure. IMPRESSION: Successful fluoroscopically guided bone marrow and bone biopsies. SL: [id number] 06/03/2016 - - Read by: Shaka Healy MD Dictated Date/time: 06/03/16 16:20 Electronically Signed by: Shaka Healy MD 06/03/16 16:21 FINAL REPORT [facility] CHEM PANEL Lipase Lvl 158 unit/L 73 - 393 05/20/2016 [facility] ELECTROLYTES AGAP 11.5 meq/L 10.0 - 20.0 05/20/2016 [facility] ELECTROLYTES B/C Ratio 24 6 - 25 05/20/2016 [facility] ELECTROLYTES Globulin 4.0 g/dL 2.7 - 4.2 05/20/2016 [facility] ELECTROLYTES A/G Ratio 0.7 0.7 - 1.6 05/20/2016 [facility] ELECTROLYTES eGFR 57 mL/min/1.73m2 05/20/2016 Result Comment: The eGFR is calculated using the CKD-EPI formula. In most young, healthy individuals the eGFR will be >90 mL/min/1.73m2. The eGFR declines with age. An eGFR of 60-89 may be normal in some populations, particularly the elderly, for whom the CKD-EPI formula has not been extensively validated. Use of the eGFR is not recommended in the following populations: Individuals with unstable creatinine concentrations, including patients and those with serious co-morbid conditions. Patients with extremes in muscle mass or diet. The data above are obtained from the National Kidney Disease Education Program (NKDEP) which additionally recommends that when the eGFR is used in patients with extremes of body mass index for purposes of drug dosing, the eGFR should be multiplied by the estimated BMI. [facility] ELECTROLYTES Glucose Lvl 271 mg/dL 70 - 99 05/20/2016 [facility] ELECTROLYTES BUN 24 mg/dL 7 - 22 05/20/2016 [facility] ELECTROLYTES Creatinine Lvl 1.02 mg/dL 0.50 - 1.40 05/20/2016 [facility] ELECTROLYTES ALANINE AMINOTRANSFERASE 33 unit/L 0 - 65 05/20/2016 [facility] ELECTROLYTES Albumin Lvl 2.7 g/dL 3.5 - 5.0 05/20/2016 [facility] ELECTROLYTES Alk Phos 85 unit/L 39 - 136 05/20/2016 [facility] ELECTROLYTES Bili Total 0.4 mg/dL 0.2 - 1.3 05/20/2016 [facility] ELECTROLYTES Total Protein 6.7 g/dL 6.4 - 8.4 05/20/2016 [facility] ELECTROLYTES ASPARTATE TRANSAMINASE 20 unit/L 0 - 37 05/20/2016 [facility] ELECTROLYTES Chloride Lvl 103 meq/L 95 - 109 05/20/2016 [facility] ELECTROLYTES CO2 26 meq/L 24 - 32 05/20/2016 [facility] ELECTROLYTES Calcium Lvl 8.0 mg/dL 8.5 - 10.5 05/20/2016 [facility] ELECTROLYTES Potassium Lvl 3.5 meq/L 3.5 - 5.1 05/20/2016 [facility] ELECTROLYTES Sodium Lvl 137 meq/L 135 - 145 05/20/2016 [facility] HEMATOLOGY aPTT 20.9 s 22.9 - 35.8 05/20/2016 [facility] HEMATOLOGY INR 1.03 0.85 - 1.17 05/20/2016 [facility] HEMATOLOGY PROTIME 13.8 s 12.0 - 14.7 05/20/2016 [facility] HEMATOLOGY WBC X 10x3 11.3 K/CMM 3.7 - 10.4 05/20/2016 [facility] HEMATOLOGY RBC X 10x6 3.87 M/CMM 4.20 - 5.40 05/20/2016 [facility] HEMATOLOGY Hgb 11.5 g/dL 12.0 - 16.0 05/20/2016 [facility] HEMATOLOGY MCV 90.2 fL 80.0 - 98.0 05/20/2016 [facility] HEMATOLOGY Hct 34.9 % 36.0 - 48.0 05/20/2016 [facility] HEMATOLOGY RDW 15.6 % 11.5 - 14.5 05/20/2016 [facility] MCHC 33.0 g/dL 32.0 - 36.0 05/20/2016 [facility] MCH 29.7 pg 27.0 - 31.0 05/20/2016 [facility] HEMATOLOGY MPV 9.7 fL 7.4 - 10.4 05/20/2016 [facility] HEMATOLOGY Platelet 56 K/CMM 133 - 450 05/20/2016 [facility] HEMATOLOGY Monocytes # 0.7 K/CMM 0.0 - 0.8 05/20/2016 [facility] HEMATOLOGY Eosinophils # 0.3 K/CMM 0.0 - 0.5 05/20/2016 [facility] HEMATOLOGY Basophils 0.3 % 0.0 - 1.0 05/20/2016 [facility] HEMATOLOGY Segs-Bands # 7.8 K/CMM 1.5 - 8.1 05/20/2016 [facility] HEMATOLOGY Lymphocytes # 2.5 K/CMM 1.0 - 5.5 05/20/2016 [facility] HEMATOLOGY Segs 69.0 % 45.0 - 75.0 05/20/2016 [facility] HEMATOLOGY Lymphocytes 22.0 % 20.0 - 40.0 05/20/2016 [facility] HEMATOLOGY Monocytes 6.4 % 2.0 - 12.0 05/20/2016 [facility] HEMATOLOGY Eosinophils 2.3 % 0.0 - 4.0 05/20/2016 [facility] URINE AND STOOL UA RBC 0-2 /HPF 0 - 2 05/20/2016 [facility] URINE AND STOOL UA WBC 3-5 /HPF None Seen /HPF 05/20/2016 [facility] URINE AND STOOL UA Bacteria Occasional /HPF None Seen /HPF 05/20/2016 [facility] URINE AND STOOL UA Sq Epi Occasional /LPF Few /LPF 05/20/2016 [facility] URINE AND STOOL UA Ketones Negative *NA* (05/20/16 5:52 PM) Negative 05/20/2016 [facility] URINE AND STOOL UA Color Yellow *NA* (05/20/16 5:52 PM) Yellow 05/20/2016 [facility] URINE AND STOOL UA Turbidity Clear (05/20/16 5:52 PM) Clear 05/20/2016 [facility] URINE AND STOOL UA Spec Grav 1.015 <=1.030 05/20/2016 [facility] URINE AND STOOL UA Protein 30 mg/dL Negative mg/dL 05/20/2016 [facility] URINE AND STOOL UA pH 7.5 5.0 - 8.0 05/20/2016 [facility] URINE AND STOOL UA Leuk Est Negative (05/20/16 5:52 PM) Negative 05/20/2016 [facility] URINE AND STOOL UA Urobilinogen 0.2 EU/dL 0.1 - 1.0 05/20/2016 [facility] URINE AND STOOL UA Blood Trace *ABN* (05/20/16 5:52 PM) Negative 05/20/2016 [facility] URINE AND STOOL UA Glucose >=1000 mg/dL Negative mg/dL 05/20/2016 [facility] URINE AND STOOL UA Nitrite Negative (05/20/16 5:52 PM) Negative 05/20/2016 [facility] URINE AND STOOL UA Bili Negative *NA* (05/20/16 5:52 PM) Negative 05/20/2016 [facility] Chest 1view DX Chest 1view DX Study: Chest 1view DX Clinical Indication: Mass Comparison: 04/28/2016 FINDINGS: The cardiac silhouette is normal in size. The lungs are clear and without consolidation or congestion. No pleural effusion or pneumothorax is seen. The osseous structures are unremarkable. IMPRESSION: No pneumothorax. SL: [id number] 04/28/2016 - - Read by: Jesus Paez MD Dictated Date/time: 04/28/16 13:34 Electronically Signed by: Jesus Paez MD 04/28/16 13:35 FINAL REPORT [facility] Biopsy lung/chest Biopsy lung/chest VR Patient Name: REAL CARR : 1950; Age: 65 years y/o Female MR: [id number] Study: Biopsy lung/chest VR 04/27/2016 9:12 AM CDT Ordering Physician: Genet Schmidt MD Clinical Indication: Weight loss, left lung nodules; Comparison: CT of the chest, abdomen, pelvis 04/25/2016 PROCEDURE AND FINDINGS: After informed consent was obtained, the patient was placed on the CT examination table. Monitors for moderate IV sedation were attached. CT evaluation without contrast demonstrated a lobulated left upper lobe nodule A percutaneous access location was chosen and prepared in routine sterile fashion. The access location was anesthetized with injection lidocaine. With periodic CT imaging, a 19 gauge needle was guided to and placed adjacent to the left lung nodule. The patient had difficulty complying with instructions, and the nodule moved significantly with respirations. After the final visualized needle position, the needle was withdrawn approximately 1 cm, the tip angled laterally, and it was advanced 1 cm. During passes with the biopsy gun, medial pressure on the hub of the introducer needle was administered such that the tip of the introducer needle would be in contact with the nodule. Core biopsies were obtained using a 20 gauge biopsy needle and placed in formalin. The guide needle was then removed, and a dressing was applied to the access location. Post-procedure noncontrast CT scan demonstrated a small amount of alveolar hemorrhage adjacent to the nodule, and no pneumothorax The patient tolerated the procedure well and left the room in stable condition with routine post-procedure orders on the chart. COMPLICATIONS: Small amount of alveolar hemorrhage. PAIN CONTROL: Lidocaine solution was administered locally, as described; Moderate conscious sedation was initiated and maintained with intravenous 3 mg Versed and 100 mcg fentanyl for a total face to face sedation time of 41 minutes. The patient's vital signs were monitored throughout the procedure by a dedicated nurse. IMPRESSION: Technically successful CT-guided percutaneous core needle biopsy of a left lower lobe nodule. 04/28/2016 - - Read by: Shaka Healy MD Dictated Date/time: 04/28/16 11:52 Electronically Signed by: Shaka Healy MD 04/28/16 12:01 FINAL REPORT [facility] Chest 1view DX Chest 1view DX Study: Chest 1view DX Clinical Indication: Mass Comparison: Chest x-ray from 02/23/2014. FINDINGS: Cardiac silhouette is normal in size. Subtle left perihilar alveolar opacity is seen, suggestive of pulmonary hemorrhage. No pneumothorax or pleural effusion is seen. The osseous structures are unremarkable. IMPRESSION: No pneumothorax. SL: [id number] 04/28/2016 - - Read by: Jesus Paez MD Dictated Date/time: 04/28/16 10:28 Electronically Signed by: Jesus Paez MD 04/28/16 10:29 FINAL REPORT [facility] ELECTROLYTES AGAP 12.7 meq/L 10.0 - 20.0 04/28/2016 [facility] ELECTROLYTES eGFR 52 mL/min/1.73m2 04/28/2016 Result Comment: The eGFR is calculated using the CKD-EPI formula. In most young, healthy individuals the eGFR will be >90 mL/min/1.73m2. The eGFR declines with age. An eGFR of 60-89 may be normal in some populations, particularly the elderly, for whom the CKD-EPI formula has not been extensively validated. Use of the eGFR is not recommended in the following populations: Individuals with unstable creatinine concentrations, including patients and those with serious co-morbid conditions. Patients with extremes in muscle mass or diet. The data above are obtained from the National Kidney Disease Education Program (NKDEP) which additionally recommends that when the eGFR is used in patients with extremes of body mass index for purposes of drug dosing, the eGFR should be multiplied by the estimated BMI. [facility] ELECTROLYTES Sodium Lvl 139 meq/L 135 - 145 04/28/2016 [facility] ELECTROLYTES Glucose Lvl 206 mg/dL 70 - 99 04/28/2016 [facility] ELECTROLYTES BUN 21 mg/dL 7 - 22 04/28/2016 [facility] ELECTROLYTES Calcium Lvl 8.2 mg/dL 8.5 - 10.5 04/28/2016 [facility] ELECTROLYTES CO2 28 meq/L 24 - 32 04/28/2016 [facility] ELECTROLYTES Creatinine Lvl 1.10 mg/dL 0.50 - 1.40 04/28/2016 [facility] ELECTROLYTES Chloride Lvl 102 meq/L 95 - 109 04/28/2016 [facility] ELECTROLYTES Potassium Lvl 3.7 meq/L 3.5 - 5.1 04/28/[address] [facility] RDW 14.5 % 11.5 - 14.5 04/28/[address] [facility] MPV 9.6 fL 7.4 - 10.4 04/28/[address] [facility] Platelet 123 K/CMM 133 - 450 04/28/[address] [facility] MCHC 34.2 g/dL 32.0 - 36.0 04/28/[address] [facility] MCH 29.5 pg 27.0 - 31.0 04/28/[address] [facility] MCV 86.1 fL 80.0 - 98.0 04/28/[address] [facility] Hct 32.6 % 36.0 - 48.0 04/28/[address] [facility] Hgb 11.2 g/dL 12.0 - 16.0 04/28/[address] [facility] RBC 3.79 M/CMM 4.20 - 5.40 04/28/[address] [facility] WBC 5.0 K/CMM 3.7 - 10.4 04/28/[address] [facility] Eosinophils 4.5 % 0.0 - 4.0 04/28/2016 [facility] HEMATOLOGY Basophils 0.6 % 0.0 - 1.0 04/28/2016 [facility] HEMATOLOGY Segs-Bands # 2.4 K/CMM 1.5 - 8.1 04/28/2016 [facility] HEMATOLOGY Lymphocytes # 1.7 K/CMM 1.0 - 5.5 04/28/2016 [facility] HEMATOLOGY Monocytes # 0.7 K/CMM 0.0 - 0.8 04/28/2016 [facility] HEMATOLOGY Segs 47.4 % 45.0 - 75.0 04/28/2016 [facility] HEMATOLOGY Lymphocytes 33.0 % 20.0 - 40.0 04/28/2016 [facility] HEMATOLOGY Monocytes 14.5 % 2.0 - 12.0 04/28/2016 [facility] HEMATOLOGY Eosinophils # 0.2 K/CMM 0.0 - 0.5 04/28/2016 [facility] ELECTROLYTES Chloride Lvl 98 meq/L 95 - 109 04/27/2016 [facility] ELECTROLYTES Potassium Lvl 4.2 meq/L 3.5 - 5.1 04/27/2016 [facility] ELECTROLYTES Sodium Lvl 135 meq/L 135 - 145 04/27/2016 [facility] ELECTROLYTES AST 15 unit/L 0 - 37 04/27/2016 [facility] ELECTROLYTES Alk Phos 93 unit/L 39 - 136 04/27/2016 [facility] ELECTROLYTES ALT 17 unit/L 0 - 65 04/27/2016 [facility] ELECTROLYTES Bili Total 0.8 mg/dL 0.2 - 1.3 04/27/2016 [facility] ELECTROLYTES A/G Ratio 0.4 0.7 - 1.6 04/27/2016 [facility] ELECTROLYTES B/C Ratio 16 6 - 25 04/27/2016 [facility] ELECTROLYTES Albumin Lvl 2.5 g/dL 3.5 - 5.0 04/27/2016 [facility] ELECTROLYTES Total Protein 8.1 g/dL 6.4 - 8.4 04/27/2016 [facility] ELECTROLYTES Globulin 5.6 g/dL 2.0 - 4.0 04/27/2016 [facility] ELECTROLYTES Creatinine Lvl 1.23 mg/dL 0.50 - 1.40 04/27/2016 [facility] ELECTROLYTES CO2 29 meq/L 24 - 32 04/27/2016 [facility] ELECTROLYTES Calcium Lvl 8.7 mg/dL 8.5 - 10.5 04/27/2016 [facility] ELECTROLYTES AGAP 12.2 meq/L 10.0 - 20.0 04/27/2016 [facility] ELECTROLYTES eGFR 46 mL/min/1.73m2 04/27/2016 Result Comment: The eGFR is calculated using the CKD-EPI formula. In most young, healthy individuals the eGFR will be >90 mL/min/1.73m2. The eGFR declines with age. An eGFR of 60-89 may be normal in some populations, particularly the elderly, for whom the CKD-EPI formula has not been extensively validated. Use of the eGFR is not recommended in the following populations: Individuals with unstable creatinine concentrations, including patients and those with serious co-morbid conditions. Patients with extremes in muscle mass or diet. The data above are obtained from the National Kidney Disease Education Program (NKDEP) which additionally recommends that when the eGFR is used in patients with extremes of body mass index for purposes of drug dosing, the eGFR should be multiplied by the estimated BMI. [facility] ELECTROLYTES BUN 20 mg/dL 7 - 22 04/27/2016 [facility] ELECTROLYTES Glucose Lvl 273 mg/dL 70 - 99 04/27/[address] [facility] RDW 13.7 % 11.5 - 14.5 04/27/[address] [facility] MCH 29.5 pg 27.0 - 31.0 04/27/[address] [facility] Hct 33.3 % 36.0 - 48.0 04/27/[address] [facility] MCHC 34.1 g/dL 32.0 - 36.0 04/27/[address] [facility] MCV 86.6 fL 80.0 - 98.0 04/27/[address] [facility] Hgb 11.4 g/dL 12.0 - 16.0 04/27/[address] [facility] WBC 4.3 K/CMM 3.7 - 10.4 04/27/[address] [facility] RBC 3.85 M/CMM 4.20 - 5.40 04/27/[address] [facility] Platelet 113 K/CMM 133 - 450 04/27/[address] [facility] MPV 9.6 fL 7.4 - 10.4 04/27/[address] [facility] Lymphocytes # 1.2 K/CMM 1.0 - 5.5 04/27/[address] [facility] Segs-Bands # 2.4 K/CMM 1.5 - 8.1 04/27/[address] [facility] Eosinophils # 0.2 K/CMM 0.0 - 0.5 04/27/2016 [facility] HEMATOLOGY Monocytes # 0.5 K/CMM 0.0 - 0.8 04/27/2016 [facility] HEMATOLOGY Lymphocytes 27.2 % 20.0 - 40.0 04/27/2016 [facility] HEMATOLOGY Basophils 0.4 % 0.0 - 1.0 04/27/2016 [facility] HEMATOLOGY Monocytes 12.2 % 2.0 - 12.0 04/27/2016 [facility] HEMATOLOGY Eosinophils 4.2 % 0.0 - 4.0 04/27/2016 [facility] HEMATOLOGY Segs 56.0 % 45.0 - 75.0 04/27/2016 [facility] CHEM PANEL eGFR 38 mL/min/1.73m2 04/26/2016 Result Comment: The eGFR is calculated using the CKD-EPI formula. In most young, healthy individuals the eGFR will be >90 mL/min/1.73m2. The eGFR declines with age. An eGFR of 60-89 may be normal in some populations, particularly the elderly, for whom the CKD-EPI formula has not been extensively validated. Use of the eGFR is not recommended in the following populations: Individuals with unstable creatinine concentrations, including patients and those with serious co-morbid conditions. Patients with extremes in muscle mass or diet. The data above are obtained from the National Kidney Disease Education Program (NKDEP) which additionally recommends that when the eGFR is used in patients with extremes of body mass index for purposes of drug dosing, the eGFR should be multiplied by the estimated BMI. [facility] CHEM PANEL CO2 29 meq/L 24 - 32 04/26/2016 [facility] CHEM PANEL Calcium Lvl 8.3 mg/dL 8.5 - 10.5 04/26/2016 [facility] CHEM PANEL Chloride Lvl 97 meq/L 95 - 109 04/26/2016 [facility] CHEM PANEL AGAP 8.7 meq/L 10.0 - 20.0 04/26/2016 [facility] CHEM PANEL B/C Ratio 14 6 - 25 04/26/2016 [facility] CHEM PANEL Albumin Lvl 2.6 g/dL 3.5 - 5.0 04/26/2016 [facility] CHEM PANEL Total Protein 8.6 g/dL 6.4 - 8.4 04/26/2016 [facility] CHEM PANEL Globulin 6.0 g/dL 2.0 - 4.0 04/26/2016 [facility] CHEM PANEL Glucose Lvl 325 mg/dL 70 - 99 04/26/2016 [facility] CHEM PANEL BUN 20 mg/dL 7 - 22 04/26/2016 [facility] CHEM PANEL Sodium Lvl 131 meq/L 135 - 145 04/26/2016 [facility] CHEM PANEL Potassium Lvl 3.7 meq/L 3.5 - 5.1 04/26/2016 [facility] CHEM PANEL Creatinine Lvl 1.44 mg/dL 0.50 - 1.40 04/26/2016 [facility] CHEM PANEL ALT 17 unit/L 0 - 65 04/26/2016 [facility] CHEM PANEL AST 14 unit/L 0 - 37 04/26/2016 [facility] CHEM PANEL A/G Ratio 0.4 0.7 - 1.6 04/26/2016 [facility] CHEM PANEL Alk Phos 78 unit/L 39 - 136 04/26/2016 [facility] CHEM PANEL Bili Total 0.3 mg/dL 0.2 - 1.3 04/26/2016 [facility] HEMATOLOGY Monocytes # 0.4 K/CMM 0.0 - 0.8 04/26/2016 [facility] HEMATOLOGY Lymphocytes 22.8 % 20.0 - 40.0 04/26/2016 [facility] HEMATOLOGY Monocytes 10.2 % 2.0 - 12.0 04/26/2016 [facility] HEMATOLOGY Segs 61.4 % 45.0 - 75.0 04/26/2016 [facility] HEMATOLOGY Segs-Bands # 2.7 K/CMM 1.5 - 8.1 04/26/2016 [facility] HEMATOLOGY Eosinophils 5.2 % 0.0 - 4.0 04/26/2016 [facility] HEMATOLOGY Basophils 0.4 % 0.0 - 1.0 04/26/2016 [facility] HEMATOLOGY Lymphocytes # 1.0 K/CMM 1.0 - 5.5 04/26/2016 [facility] HEMATOLOGY Eosinophils # 0.2 K/CMM 0.0 - 0.5 04/26/2016 [facility] HEMATOLOGY MCHC 34.3 g/dL 32.0 - 36.0 04/26/2016 [facility] HEMATOLOGY RDW 14.1 % 11.5 - 14.5 04/26/2016 [facility] HEMATOLOGY Platelet 109 K/CMM 133 - 450 04/26/2016 [facility] HEMATOLOGY MPV 9.4 fL 7.4 - 10.4 04/26/2016 [facility] HEMATOLOGY Hgb 10.4 g/dL 12.0 - 16.0 04/26/2016 [facility] HEMATOLOGY RBC 3.53 M/CMM 4.20 - 5.40 04/26/[address] [facility] Hct 30.3 % 36.0 - 48.0 04/26/[address] [facility] MCH 29.4 pg 27.0 - 31.0 04/26/[address] [facility] MCV 85.9 fL 80.0 - 98.0 04/26/[address] [facility] WBC 4.3 K/CMM 3.7 - 10.4 04/26/2016 [facility] SPECIAL CHEMISTRY Hgb A1C >16.0 % <=5.6 % 04/26/2016 [facility] Chest/Abd/Pelvis w/wo IV contrast CT Chest/Abd/Pelvis w/wo IV contrast CT Study: Chest/Abd/Pelvis w/wo IV contrast CT Clinical Indication: Mass Comparison: None Technique: Multiple axial CT images of the chest, abdomen, and pelvis were acquired before and after the administration of intravenous contrast. Coronal and sagittal reconstructions were obtained. CT Radiation Dose DLP 1699.61 mGy-cm Findings: Cardiac chambers and pericardium are unremarkable. Aortic annular, coronary artery, and thoracic aortic calcifications are seen. No filling defects are noted in the central pulmonary arteries. No pathologic mediastinal, hilar, or axillary adenopathy is seen. No endobronchial lesions are identified within the central airways. Lobulated 1.1 cm nodule in the left upper lobe is seen. Additional peripheral 2 mm nodule in the left lower lobe is noted (image 45 of series 5). Additional peripheral 2 mm nodule in the right lower lobe is seen (image 46 of series 5). No pleural effusion or pneumothorax is seen. The liver, gallbladder, pancreas, spleen, adrenal glands, and kidneys have normal CT appearance. No intrahepatic or extra hepatic biliary duct dilatation is seen. Urinary bladder is mildly distended. Patient is status post hysterectomy. Moderate-sized hiatal hernia is seen. Sigmoid diverticula are noted. The remaining visualized hollow viscera are unremarkable. The appendix is not clearly visualized. Arterial calcifications are present. Severe atherosclerotic disease of the bilateral proximal renal arteries is seen. No intraperitoneal free air, free fluid, or pathologic adenopathy is seen. The superficial soft tissues are normal in appearance. No suspicious osseous lesions are seen. Degenerative change of the lower lumbar spine is seen. IMPRESSION: 1. Multiple pulmonary nodules in the left upper and bilateral lower lobes. 2. No evidence of malignancy or metastatic disease to the abdomen/pelvis. 3. Moderate-sized hiatal hernia. 4. Sigmoid diverticula. SL: [id number] 04/25/2016 - - Read by: Jesus Paez MD Dictated Date/time: 04/25/16 22:30 Electronically Signed by: Jesus Paez MD 04/25/16 22:37 FINAL REPORT [facility] CHEM PANEL Alk Phos 71 unit/L 39 - 136 04/25/2016 [facility] CHEM PANEL Bili Total 1.0 mg/dL 0.2 - 1.3 04/25/2016 [facility] CHEM PANEL AST 10 unit/L 0 - 37 04/25/2016 [facility] CHEM PANEL Albumin Lvl 3.1 g/dL 3.5 - 5.0 04/25/2016 [facility] CHEM PANEL Total Protein 6.2 g/dL 6.4 - 8.4 04/25/2016 [facility] CHEM PANEL ALT 19 unit/L 0 - 65 04/25/2016 [facility] CHEM PANEL A/G Ratio 1.0 0.7 - 1.6 04/25/2016 [facility] CHEM PANEL Globulin 3.1 g/dL 2.0 - 4.0 04/25/2016 [facility] CHEM PANEL B/C Ratio 20 6 - 25 04/25/2016 [facility] BLOOD BANK RESULTS ABO/Rh O POS 04/25/2016 [facility] BLOOD BANK RESULTS Antibody Scrn Negative (04/24/16 11:54 PM) 04/25/2016 [facility] BLOOD BANK RESULTS Platelet product Product available 1 (04/24/16 10:50 PM) 04/25/2016 Result Comment: 04/25/2016 01:19 [id number] notified kamala at 04/25/2016 01:19 lgb [facility] Abdomen complete US Abdomen complete US Abdomen complete US TECHNIQUE: Grayscale and color Doppler images of the abdomen were performed with a curvilinear transducer. Static images are submitted for review. CLINICAL HX: splenomegaly; low platelets COMPARISON: None FINDINGS: LIVER AND SPLEEN: Mild nonspecific heterogeneity in the echotexture indicates hepatocellular disease. Spleen is normal in size measuring approximately 6.5 cm in the sagittal length. GALL BLADDER AND BILE DUCTS: Gall bladder is sonolucent without evidence for gall stones. CBD measures 4 mm. PANCREAS: Pancreas is largely obscured by bowel gas. Visualized portion of the pancreas is unremarkable. Kidneys: The kidneys are comparable in size and reveal no gross masses or any evidence for hydronephrosis. Maximal sagittal diameter of the right kidney is 9 cm and the left kidney is 8 cm. Vascular: Midline structures are partially obscured due to bowel gas. Visualized portion of the aorta and IVC are unremarkable. Ascites: No free fluid is present in the upper abdomen. No significant effusion is noted on either side. IMPRESSION: Mild nonspecific heterogeneity in the echotexture indicates hepatocellular disease. No other significant sonographic abnormality is noted in the abdomen. SL: [id number] 11/27/2015 - - Read by: Baldomero Judge MD Dictated Date/time: 11/27/15 16:17 Electronically Signed by: Baldomero Judge MD 11/27/15 16:33 FINAL REPORT [facility] CHEM PANEL eGFR 29 mL/min/1.73m2 03/01/2014 1Result Comment: The eGFR is calculated using the CKD-EPI formula. In most young, healthy individuals the eGFR will be >90 mL/min/1.73m2. The eGFR declines with age. An eGFR of 60-89 may be normal in some populations, particularly the elderly, for whom the CKD-EPI formula has not been extensively validated. Use of the eGFR is not recommended in the following populations: Individuals with unstable creatinine concentrations, including patients and those with serious co-morbid conditions. Patients with extremes in muscle mass or diet. The data above are obtained from the National Kidney Disease Education Program (NKDEP) which additionally recommends that when the eGFR is used in patients with extremes of body mass index for purposes of drug dosing, the eGFR should be multiplied by the estimated BMI. [facility] CHEM PANEL Chloride Lvl 106 meq/L 95 - 109 03/01/2014 [facility] CHEM PANEL Potassium Lvl 3.8 meq/L 3.5 - 5.1 03/01/2014 [facility] CHEM PANEL Sodium Lvl 138 meq/L 135 - 145 03/01/2014 [facility] CHEM PANEL BUN 28 mg/dL 7 - 22 03/01/2014 [facility] CHEM PANEL Creatinine Lvl 1.8 mg/dL 0.5 - 1.4 03/01/2014 [facility] CHEM PANEL CO2 23 meq/L 24 - 32 03/01/2014 [facility] CHEM PANEL Calcium Lvl 8.8 mg/dL 8.5 - 10.5 03/01/2014 [facility] CHEM PANEL Glucose Lvl 211 mg/dL 70 - 99 03/01/2014 4Interpretive Data: Adult reference range values reflect the clinical guidelines of the [place] [employer]. [facility] CHEM PANEL AGAP 12.8 meq/L 10.0 - 20.0 03/01/2014 [facility] HEMATOLOGY MCV 88.3 fL 81.0 - 99.0 03/01/2014 [facility] HEMATOLOGY Hgb 10.0 g/dL 12.0 - 16.0 03/01/2014 [facility] HEMATOLOGY Hct 29.5 % 36.0 - 48.0 03/01/2014 [facility] HEMATOLOGY RBC 3.34 M/CMM 4.20 - 5.40 03/01/2014 [facility] HEMATOLOGY Platelet 131 K/CMM 133 - 450 03/01/2014 [facility] HEMATOLOGY RDW 14.4 % 11.5 - 14.5 03/01/[address] [facility] MCH 29.9 pg 27.0 - 31.0 03/01/[address] [facility] MCHC 33.9 g/dL 32.0 - 36.0 03/01/[address] [facility] MPV 9.4 fL 7.4 - 10.4 03/01/[address] [facility] WBC 10.5 K/CMM 3.7 - 10.4 03/01/2014 [facility] HEMATOLOGY Eosinophils 2.6 % 0.0 - 4.0 03/01/[address] [facility] Lymphocytes 18.7 % 20.0 - 40.0 03/01/2014 [facility] HEMATOLOGY Segs 72.5 % 45.0 - 75.0 03/01/[address] [facility] Monocytes 6.0 % 2.0 - 12.0 03/01/[address] [facility] Monocytes # 0.6 K/CMM 0.0 - 0.8 03/01/2014 [facility] HEMATOLOGY Segs-Bands # 7.6 K/CMM 1.5 - 8.1 03/01/[address] [facility] Lymphocytes # 2.0 K/CMM 1.0 - 5.5 03/01/2014 [facility] HEMATOLOGY Basophils 0.2 % 0.0 - 1.0 03/01/2014 [facility] HEMATOLOGY Basophils # 0.0 K/CMM 0.0 - 0.2 03/01/2014 [facility] HEMATOLOGY Eosinophils # 0.3 K/CMM 0.0 - 0.5 03/01/2014 [facility] ELECTROLYTES Chloride Lvl 102 meq/L 95 - 109 02/28/2014 [facility] ELECTROLYTES Potassium Lvl 3.3 meq/L 3.5 - 5.1 02/28/2014 [facility] ELECTROLYTES Calcium Lvl 9.3 mg/dL 8.5 - 10.5 02/28/2014 [facility] ELECTROLYTES CO2 27 meq/L 24 - 32 02/28/2014 [facility] ELECTROLYTES Creatinine Lvl 2.2 mg/dL 0.5 - 1.4 02/28/2014 [facility] ELECTROLYTES BUN 33 mg/dL 7 - 22 02/28/2014 [facility] ELECTROLYTES Sodium Lvl 139 meq/L 135 - 145 02/28/2014 [facility] ELECTROLYTES Glucose Lvl 198 mg/dL 70 - 99 02/28/2014 5Interpretive Data: Adult reference range values reflect the clinical guidelines of the [place] [employer]. [facility] ELECTROLYTES eGFR 23 mL/min/1.73m2 02/28/2014 2Result Comment: The eGFR is calculated using the CKD-EPI formula. In most young, healthy individuals the eGFR will be >90 mL/min/1.73m2. The eGFR declines with age. An eGFR of 60-89 may be normal in some populations, particularly the elderly, for whom the CKD-EPI formula has not been extensively validated. Use of the eGFR is not recommended in the following populations: Individuals with unstable creatinine concentrations, including patients and those with serious co-morbid conditions. Patients with extremes in muscle mass or diet. The data above are obtained from the National Kidney Disease Education Program (NKDEP) which additionally recommends that when the eGFR is used in patients with extremes of body mass index for purposes of drug dosing, the eGFR should be multiplied by the estimated BMI. [facility] ELECTROLYTES AGAP 13.3 meq/L 10.0 - 20.0 02/28/2014 [facility] ELECTROLYTES Sodium Lvl 138 meq/L 135 - 145 02/27/2014 [facility] ELECTROLYTES Glucose Lvl 236 mg/dL 70 - 99 02/27/2014 6Interpretive Data: Adult reference range values reflect the clinical guidelines of the [place] [employer]. [facility] ELECTROLYTES Creatinine Lvl 2.1 mg/dL 0.5 - 1.4 02/27/2014 [facility] ELECTROLYTES BUN 37 mg/dL 7 - 02/27/2014 [facility] ELECTROLYTES eGFR 24 mL/min/1.73m2 02/27/2014 3Result Comment: The eGFR is calculated using the CKD-EPI formula. In most young, healthy individuals the eGFR will be >90 mL/min/1.73m2. The eGFR declines with age. An eGFR of 60-89 may be normal in some populations, particularly the elderly, for whom the CKD-EPI formula has not been extensively validated. Use of the eGFR is not recommended in the following populations: Individuals with unstable creatinine concentrations, including patients and those with serious co-morbid conditions. Patients with extremes in muscle mass or diet. The data above are obtained from the National Kidney Disease Education Program (NKDEP) which additionally recommends that when the eGFR is used in patients with extremes of body mass index for purposes of drug dosing, the eGFR should be multiplied by the estimated BMI. [facility] ELECTROLYTES Chloride Lvl 101 meq/L 95 - 109 02/27/2014 [facility] ELECTROLYTES AGAP 13.3 meq/L 10.0 - 20.0 02/27/2014 [facility] ELECTROLYTES CO2 27 meq/L 24 - 32 02/27/2014 [facility] ELECTROLYTES Potassium Lvl 3.3 meq/L 3.5 - 5.1 02/27/2014 [facility] ELECTROLYTES Calcium Lvl 9.1 mg/dL 8.5 - 10.5 02/27/2014 [facility] CHEM PANEL Magnesium Lvl 1.8 mg/dL 1.8 - 2.4 02/26/2014 [facility] CHEM PANEL Phosphorus 3.7 mg/dL 2.5 - 4.5 02/26/[address] [facility] MPV 9.8 fL 7.4 - 10.4 02/24/[address] [facility] RBC 3.50 M/CMM 4.20 - 5.40 02/24/[address] [facility] Hgb 10.5 g/dL 12.0 - 16.0 02/24/[address] [facility] MCH 30.1 pg 27.0 - 31.0 02/24/[address] [facility] MCHC 34.1 g/dL 32.0 - 36.0 02/24/[address] [facility] RDW 15.0 % 11.5 - 14.5 02/24/[address] [facility] MCV 88.4 fL 81.0 - 99.0 02/24/[address] [facility] Hct 30.9 % 36.0 - 48.0 02/24/[address] [facility] Platelet 85 K/CMM 133 - 450 02/24/[address] [facility] WBC 8.2 K/CMM 3.7 - 10.4 02/24/2014 [facility] HEMATOLOGY Lymphocytes 27.6 % 20.0 - 40.0 02/24/2014 [facility] HEMATOLOGY Monocytes 11.2 % 2.0 - 12.0 02/24/2014 [facility] HEMATOLOGY Eosinophils 3.4 % 0.0 - 4.0 02/24/2014 [facility] HEMATOLOGY Segs 57.2 % 45.0 - 75.0 02/24/2014 [facility] HEMATOLOGY Eosinophils # 0.3 K/CMM 0.0 - 0.5 02/24/2014 [facility] HEMATOLOGY Lymphocytes # 2.3 K/CMM 1.0 - 5.5 02/24/2014 [facility] HEMATOLOGY Monocytes # 0.9 K/CMM 0.0 - 0.8 02/24/2014 [facility] HEMATOLOGY Basophils 0.6 % 0.0 - 1.0 02/24/2014 [facility] HEMATOLOGY Segs-Bands # 4.7 K/CMM 1.5 - 8.1 02/24/2014 [facility] HEMATOLOGY Basophils # 0.1 K/CMM 0.0 - 0.2 02/24/2014 [facility] URINE AND STOOL UA Urobilinogen <=1.0 mg/dL 0.1 - 1.0 02/23/2014 [facility] URINE AND STOOL UA RBC 2 /HPF 0 - 2 02/23/2014 [facility] URINE AND STOOL UA Bacteria Occasional /HPF None Seen /HPF 02/23/2014 [facility] URINE AND STOOL UA WBC 10 /HPF 0 - 5 02/23/2014 [facility] URINE AND STOOL UA Nitrite Negative (02/23/14 2:20 PM) Negative 02/23/2014 [facility] URINE AND STOOL UA Blood Moderate *ABN* (02/23/14 2:20 PM) Negative 02/23/2014 [facility] URINE AND STOOL UA Corral Yeast Occasional /HPF None Seen /HPF 02/23/2014 [facility] URINE AND STOOL UA Protein 100 mg/dL Negative mg/dL 02/23/2014 [facility] URINE AND STOOL UA Sq Epi Moderate /LPF Few /LPF 02/23/2014 [facility] URINE AND STOOL UA Leuk Est Negative (02/23/14 2:20 PM) Negative 02/23/2014 [facility] URINE AND STOOL UA Ketones Negative mg/dL Negative mg/dL 02/23/2014 [facility] URINE AND STOOL UA Bili Negative *NA* (02/23/14 2:20 PM) Negative 02/23/2014 [facility] URINE AND STOOL UA Glucose 500 mg/dL Negative mg/dL 02/23/2014 [facility] URINE AND STOOL UA Spec Grav 1.011 <=1.030 02/23/2014 [facility] URINE AND STOOL UA pH 5.0 5.0 - 8.0 02/23/2014 [facility] URINE AND STOOL UA Turbidity Marked *ABN* (02/23/14 2:20 PM) Clear 02/23/2014 [facility] URINE AND STOOL UA Color Yellow *NA* (02/23/14 2:20 PM) Yellow 02/23/2014 [facility] CARDIAC ENZYMES Troponin-I null 0.00 - 0.40 02/23/2014 [facility] CARDIAC ENZYMES Total CK 162 unit/L 12 - 191 02/23/2014 [facility] CARDIAC ENZYMES CK MB 2.2 ng/mL 0.5 - 3.6 02/23/2014 [facility] CARDIAC ENZYMES CK MB Index 1.4 0.0 - 2.5 02/23/2014 [facility] CHEM PANEL A/G Ratio 0.8 0.7 - 1.6 02/23/2014 [facility] CHEM PANEL Globulin 4.4 g/dL 2.0 - 4.0 02/23/2014 [facility] CHEM PANEL B/C Ratio 25 6 - 25 02/23/2014 [facility] CHEM PANEL ALT 29 unit/L 0 - 65 02/23/2014 [facility] CHEM PANEL AST 21 unit/L 0 - 37 02/23/2014 [facility] CHEM PANEL Albumin Lvl 3.3 g/dL 3.5 - 5.0 02/23/2014 [facility] CHEM PANEL Total Protein 7.7 g/dL 6.4 - 8.4 02/23/2014 [facility] CHEM PANEL Alk Phos 65 unit/L 39 - 136 02/23/2014 [facility] CHEM PANEL Bili Total 0.4 mg/dL 0.2 - 1.3 02/23/2014 [facility] HEMATOLOGY Eosinophils # 0.0 K/CMM 0.0 - 0.5 02/23/2014 [facility] HEMATOLOGY Basophils # 0.0 K/CMM 0.0 - 0.2 02/23/2014 [facility] HEMATOLOGY Lymphocytes 11.7 % 20.0 - 40.0 02/23/2014 [facility] HEMATOLOGY Segs 81.9 % 45.0 - 75.0 02/23/2014 [facility] HEMATOLOGY Basophils 0.1 % 0.0 - 1.0 02/23/2014 [facility] HEMATOLOGY Monocytes 6.0 % 2.0 - 12.0 02/23/2014 [facility] HEMATOLOGY Eosinophils 0.3 % 0.0 - 4.0 02/23/2014 [facility] HEMATOLOGY Segs-Bands # 7.3 K/CMM 1.5 - 8.1 02/23/2014 [facility] HEMATOLOGY Lymphocytes # 1.0 K/CMM 1.0 - 5.5 02/23/2014 [facility] HEMATOLOGY Monocytes # 0.5 K/CMM 0.0 - 0.8 02/23/2014 [facility] HEMATOLOGY WBC 8.9 K/CMM 3.7 - 10.4 02/23/2014 [facility] HEMATOLOGY MCV 88.8 fL 81.0 - 99.0 02/23/2014 [facility] HEMATOLOGY MCH 29.9 pg 27.0 - 31.0 02/23/2014 [facility] HEMATOLOGY Hct 35.0 % 36.0 - 48.0 02/23/2014 [facility] HEMATOLOGY RBC 3.94 M/CMM 4.20 - 5.40 02/23/2014 [facility] HEMATOLOGY Hgb 11.8 g/dL 12.0 - 16.0 02/23/2014 [facility] HEMATOLOGY Platelet 113 K/CMM 133 - 450 02/23/2014 [facility] HEMATOLOGY RDW 14.6 % 11.5 - 14.5 02/23/2014 [facility] HEMATOLOGY MPV 9.4 fL 7.4 - 10.4 02/23/2014 [facility] HEMATOLOGY MCHC 33.7 g/dL 32.0 - 36.0 02/23/2014 [facility] Vital Signs Vital Sign Value Date Comments Source Temperature Oral (F) 98.4 F 08/19/2016 [facility] Respitory Rate 18 08/19/2016 [facility] Heart Rate 70 08/19/2016 [facility] Systolic (mm Hg) 142 08/19/2016 [facility] Diastolic (mm Hg) 48 08/19/2016 [facility] Temperature Oral (F) 98.2 F 08/18/2016 [facility] Heart Rate 69 08/18/2016 [facility] Respitory Rate 18 08/18/2016 [facility] Systolic (mm Hg) 140 08/18/2016 [facility] Diastolic (mm Hg) 56 08/18/2016 [facility] BMI Calculated 26.31 08/18/2016 [facility] Height 149.86 cm 08/18/2016 [facility] Temperature Oral (F) 98.3 F 08/18/2016 [facility] Weight 59.091 08/18/2016 [facility] Respitory Rate 18 08/18/2016 [facility] Heart Rate 67 08/18/2016 [facility] Systolic (mm Hg) 181 08/18/2016 [facility] Diastolic (mm Hg) 94 08/18/2016 [facility] Systolic (mm Hg) 102 07/23/2016 [facility] Diastolic (mm Hg) 50 07/23/2016 [facility] Respitory Rate 18 07/23/2016 [facility] Systolic (mm Hg) 100 07/23/2016 [facility] Diastolic (mm Hg) 49 07/23/2016 [facility] Respitory Rate 24 07/23/2016 [facility] Respitory Rate 18 07/23/2016 [facility] Systolic (mm Hg) 100 07/23/2016 [facility] Diastolic (mm Hg) 49 07/23/2016 [facility] Temperature Oral (F) 97.5 F 07/16/2016 [facility] Heart Rate 79 07/16/2016 [facility] Weight 60 07/16/2016 [facility] BMI Calculated 26.72 07/16/2016 [facility] Height 149.86 cm 07/16/2016 [facility] BMI Calculated 25.5 06/03/2016 [facility] Height 149.86 cm 06/03/2016 [facility] Weight 57.273 06/03/2016 [facility] Heart Rate 70 05/20/2016 [facility] Respitory Rate 18 05/20/2016 [facility] Systolic (mm Hg) 136 05/20/2016 [facility] Diastolic (mm Hg) 64 05/20/2016 [facility] Weight 56.364 05/20/2016 [facility] BMI Calculated 25.1 05/20/2016 [facility] Height 149.86 cm 05/20/2016 [facility] Systolic (mm Hg) 151 05/20/2016 [facility] Diastolic (mm Hg) 87 05/20/2016 [facility] Respitory Rate 18 05/20/2016 [facility] Heart Rate 68 05/20/2016 [facility] Temperature Oral (F) 97.7 F 05/20/2016 [facility] Systolic (mm Hg) 176 05/20/2016 [facility] Diastolic (mm Hg) 72 05/20/2016 [facility] Heart Rate 90 05/20/2016 [facility] Respitory Rate 18 05/20/2016 [facility] Weight 61.364 05/20/2016 [facility] Temperature Oral (F) 98.3 F 05/20/2016 [facility] Systolic (mm Hg) 103 04/28/2016 [facility] Diastolic (mm Hg) 61 04/28/2016 [facility] Heart Rate 72 04/28/2016 [facility] Systolic (mm Hg) 112 04/28/2016 [facility] Diastolic (mm Hg) 60 04/28/2016 [facility] Heart Rate 68 04/28/2016 [facility] Heart Rate 70 04/28/2016 [facility] Systolic (mm Hg) 131 04/28/2016 [facility] Diastolic (mm Hg) 75 04/28/2016 [facility] Respitory Rate 18 04/28/2016 [facility] Temperature Oral (F) 98.1 F 04/28/2016 [facility] Respitory Rate 18 04/28/2016 [facility] Temperature Oral (F) 97.5 F 04/28/2016 [facility] Respitory Rate 18 04/28/2016 [facility] Temperature Oral (F) 97.4 F 04/28/2016 [facility] Height 149.86 cm 04/25/2016 [facility] Weight 50.54 04/25/2016 [facility] BMI Calculated 22.5 04/25/2016 [facility] Diastolic (mm Hg) 73 03/01/2014 [facility] Systolic (mm Hg) 148 03/01/2014 [facility] Temperature Oral (F) 97.8 F 03/01/2014 [facility] Respitory Rate 18 03/01/2014 [facility] Heart Rate 67 03/01/2014 [facility] Diastolic (mm Hg) 75 03/01/2014 [facility] Systolic (mm Hg) 128 03/01/2014 [facility] Respitory Rate 18 03/01/2014 [facility] Temperature Oral (F) 98.5 F 03/01/2014 [facility] Heart Rate 72 03/01/2014 [facility] Diastolic (mm Hg) 67 03/01/2014 [facility] Systolic (mm Hg) 124 03/01/2014 [facility] Temperature Oral (F) 98.5 F 03/01/2014 [facility] Respitory Rate 18 03/01/2014 [facility] Heart Rate 69 03/01/2014 [facility] BMI Calculated 28.74 02/23/2014 [facility] Weight 64.545 02/23/2014 [facility] Height 149.86 cm 02/23/2014 [facility] BMI Calculated 28.74 02/23/2014 [facility] Weight 64.545 02/23/2014 [facility] Height 149.86 cm 02/23/2014 [facility] Encounters Location Location Details Encounter Type Encounter Number Reason For Visit Attending Provider ADM Date DC Date Status Source [facility] Inpatient [id number] Fernando Avery 02/23/2014 03/01/2014 [facility] Outpatient [id number] Genet Brayan 11/27/2015 11/28/2015 [facility] Inpatient [id number] Khoi Stephanie 04/25/2016 04/28/2016 [facility] Emergency [id number] Jordan Bower 05/20/2016 05/21/2016 [facility] Outpatient [id number] Genet Brayan 06/03/2016 06/04/2016 [facility] Bedded Outpatient [id number] Ale Iglesias 07/23/2016 07/23/2016 [facility] Observation [id number] Akira Christina 08/18/2016 08/18/2016 [facility] Procedures Procedure Code Date Perfomer Comments Source Appendectomy [id number] [facility] Cataract surgery<sup>1</sup> [id number] both eyes [facility] Hysterectomy [id number] [facility] Tonsillectomy [id number] [facility] Cholecystectomy [id number] [facility] Appendectomy [id number] [facility] Cataract surgery<sup>1</sup> [id number] both eyes [facility] Hysterectomy [id number] [facility] Tonsillectomy [id number] [facility]
--- OUTSIDE RECORDS SUMMARY | 2018-07-24 14:45 | XMS REPORT | Summary of Care ---
Author Author [facility] Organization [facility] Address Unknown Phone Unavailable Encounter GABRIELLA Ferrara(CAYLA) [id number] Date(s): 05/20/16 - 05/20/16 [facility] [address] [place] [address]- [facility] [phone] Discharge Diagnosis: Drug-induced nausea and vomiting Discharge Diagnosis: Thrombocytopenia Discharge Diagnosis: Weakness Discharge Disposition: Home or Self Care Attending Physician: Jordan Bower MD Vital Signs 1 2 3 Most recent to oldest [Reference Range]: 149.86 cm (05/20/16 4:57 PM) Height 97.7 DegF (05/20/16 4:57 PM) 98.3 DegF (05/20/16 4:54 PM) Temperature Oral [96.4-99.1 DegF] 136/64 mmHg (05/20/16 6:13 PM) 151/87 mmHg *HI* (05/20/16 4:57 PM) 176/72 mmHg *HI* (05/20/16 4:54 PM) Blood Pressure [90-140/60-90 mmHg] 18 BRMIN (05/20/16 6:13 PM) 18 BRMIN (05/20/16 4:57 PM) 18 BRMIN (05/20/16 4:54 PM) Respiratory Rate [14-20 BRMIN] 70 bpm (05/20/16 6:13 PM) 68 bpm (05/20/16 4:57 PM) 90 bpm (05/20/16 4:54 PM) Peripheral Pulse Rate [60-100 bpm] 56.364 kg (05/20/16 4:57 PM) 61.364 kg (05/20/16 4:54 PM) Weight 25.1 m2 (05/20/16 4:57 PM) Body Mass Index Problem List Condition Effective Dates Status Health Status Informant Arthritis(Confirmed) Resolved Cholecystitis(Confir Resolved med) DM (diabetes Active mellitus), type 2(Confirmed) HTN Active (hypertension)(Confi rmed) Hyperlipidemia(Confi Active rmed) Allergies, Adverse Reactions, Alerts Substance Reaction Severity Status simvastatin Active Medications ondansetron 4 mg, 2 mL, Route: IVP, Drug form: INJ, ONCE, Dosing Weight 56.364, kg, Priority : STAT, Start date: 05/20/16 17:28:00 CDT, Stop date: 05/20/16 17:28:00 CDT Notes: (Same as: Zofran) MEDICATION WASTE Product Size: 4 mgProduct Was yousuf: ___ mg Start Date: 05/20/16 Stop Date: 05/20/16 Status: Completed Saline Flush 0.9% 10 mL, Route: IVP, Drug Form: INJ, Dosing Weight 56.364, kg, PRN, PRN Line Flush , Start date: 05/20/16 17:28:00 CDT, Duration: 30 day, Stop date: 06/19/16 17:27 :00 CDT Notes: (Same as: BD Posiflush) Start Date: 05/20/16 Stop Date: 05/20/16 Status: Discontinued Sodium Chloride 0.9% (Bolus) IV 1,000 mL, 2,000 ml/hr, Infuse Over: 30 minutes, Route: IV, 1,000, Drug form: INJ , ONCE, Priority: STAT, Dosing Weight 56.364 kg, Start date: 05/20/16 17:28:00 C DT, Duration: 1 doses or times, Stop date: 05/20/16 17:28:00 CDT Start Date: 05/20/16 Stop Date: 05/20/16 Status: Completed Zofran 4 mg oral tablet 4 mg=1 tab, PO, BID, X 5 day, # 10 tab, 0 Refill(s), Pharmacy: [facility] [id number] Start Date: 05/20/16 Stop Date: 05/25/16 Status: Ordered Results ELECTROLYTES Most recent to 1 oldest [Reference Range]: Sodium Lvl [135-145 137 mEq/L mEq/L] (05/20/16 5:52 PM) Potassium Lvl 3.5 mEq/L [3.5-5.1 mEq/L] (05/20/16 5:52 PM) Chloride Lvl [95-109 103 mEq/L mEq/L] (05/20/16 5:52 PM) CO2 [24-32 mEq/L] 26 mEq/L (05/20/16 5:52 PM) AGAP [10.0-20.0 11.5 mEq/L mEq/L] (05/20/16 5:52 PM) CHEM PANEL Most recent to 1 oldest [Reference Range]: Creatinine Lvl 1.02 mg/dL [0.50-1.40 mg/dL] (05/20/16 5:52 PM) eGFR 57 mL/min/1.73m2 1 *NA* (05/20/16 5:52 PM) BUN [7-22 mg/dL] 24 mg/dL *HI* (05/20/16 5:52 PM) B/C Ratio [6-25] 24 (05/20/16 5:52 PM) Glucose Lvl [70-99 271 mg/dL mg/dL] *HI* (05/20/16 5:52 PM) Total Protein 6.7 g/dL [6.4-8.4 g/dL] (05/20/16 5:52 PM) Albumin Lvl [3.5-5.0 2.7 g/dL g/dL] *LOW* (05/20/16 5:52 PM) Globulin [2.7-4.2 4.0 g/dL g/dL] (05/20/16 5:52 PM) A/G Ratio [0.7-1.6] 0.7 (05/20/16 5:52 PM) Calcium Lvl 8.0 mg/dL [8.5-10.5 mg/dL] *LOW* (05/20/16 5:52 PM) ALT [0-65 unit/L] 33 unit/L (05/20/16 5:52 PM) AST [0-37 unit/L] 20 unit/L (05/20/16 5:52 PM) Alk Phos [39-136 85 unit/L unit/L] (05/20/16 5:52 PM) Bili Total [0.2-1.3 0.4 mg/dL mg/dL] (05/20/16 5:52 PM) Lipase Lvl [73-393 158 unit/L unit/L] (05/20/16 5:52 PM) 1Result Comment: The eGFR is calculated using [...] from the National Kidney Disease Education Program ( NKDEP) which additionally recommends that when the eGFR is used in patients with extremes of body mass index for purposes of drug dosing, the eGFR should be mul tiplied by the estimated BMI. URINE AND STOOL Most recent to 1 oldest [Reference Range]: UA Turbidity [Clear] Clear (05/20/16 5:52 PM) UA Color [Yellow] Yellow *NA* (05/20/16 5:52 PM) UA pH [5.0-8.0] 7.5 (05/20/16 5:52 PM) UA Spec Grav 1.015 [<=1.030] (05/20/16 5:52 PM) UA Glucose [Negative >=1000 mg/dL mg/dL] *ABN* (05/20/16 5:52 PM) UA Blood [Negative] Trace *ABN* (05/20/16 5:52 PM) UA Ketones Negative [Negative] *NA* (05/20/16 5:52 PM) UA Protein [Negative 30 mg/dL mg/dL] *ABN* (05/20/16 5:52 PM) UA Urobilinogen 0.2 EU/dL [0.1-1.0 EU/dL] (05/20/16 5:52 PM) UA Bili [Negative] Negative *NA* (05/20/16 5:52 PM) UA Leuk Est Negative [Negative] (05/20/16 5:52 PM) UA Nitrite Negative [Negative] (05/20/16 5:52 PM) UA WBC [None Seen 3-5 /HPF /HPF] (05/20/16 5:52 PM) UA RBC [0-2 /HPF] 0-2 /HPF (05/20/16 5:52 PM) UA Bacteria [None Occasional /HPF Seen /HPF] (05/20/16 5:52 PM) UA Sq Epi [Few /LPF] Occasional /LPF (05/20/16 5:52 PM) HEMATOLOGY Most recent to 1 oldest [Reference Range]: WBC [3.7-10.4 K/CMM] 11.3 K/CMM *HI* (05/20/16 5:52 PM) RBC [4.20-5.40 3.87 M/CMM M/CMM] *LOW* (05/20/16 5:52 PM) Hgb [12.0-16.0 g/dL] 11.5 g/dL *LOW* (05/20/16 5:52 PM) Hct [36.0-48.0 %] 34.9 % *LOW* (05/20/16 5:52 PM) MCV [80.0-98.0 fL] 90.2 fL (05/20/16 5:52 PM) MCH [27.0-31.0 pg] 29.7 pg (05/20/16 5:52 PM) MCHC [32.0-36.0 33.0 g/dL g/dL] (05/20/16 5:52 PM) RDW [11.5-14.5 %] 15.6 % *HI* (05/20/16 5:52 PM) Platelet [133-450 56 K/CMM K/CMM] *LOW* (05/20/16 5:52 PM) MPV [7.4-10.4 fL] 9.7 fL (05/20/16 5:52 PM) Segs [45.0-75.0 %] 69.0 % (05/20/16 5:52 PM) Lymphocytes 22.0 % [20.0-40.0 %] (05/20/16 5:52 PM) Monocytes [2.0-12.0 6.4 % %] (05/20/16 5:52 PM) Eosinophils [0.0-4.0 2.3 % %] (05/20/16 5:52 PM) Basophils [0.0-1.0 0.3 % %] (05/20/16 5:52 PM) Segs-Bands # 7.8 K/CMM [1.5-8.1 K/CMM] (05/20/16 5:52 PM) Lymphocytes # 2.5 K/CMM [1.0-5.5 K/CMM] (05/20/16 5:52 PM) Monocytes # [0.0-0.8 0.7 K/CMM K/CMM] (05/20/16 5:52 PM) Eosinophils # 0.3 K/CMM [0.0-0.5 K/CMM] (05/20/16 5:52 PM) PT [12.0-14.7 13.8 seconds seconds] (05/20/16 5:52 PM) INR [0.85-1.17] 1.03 (05/20/16 5:52 PM) PTT [22.9-35.8 20.9 seconds seconds] *LOW* (05/20/16 5:52 PM) Immunizations No data available for this section Procedures Procedure Date Related Diagnosis Body Site Appendectomy Cataract surgery1 Hysterectomy Tonsillectomy 1both eyes Social History Social History Type Response Substance Abuse Use: Past. Type: Marijuana. Recreational Drug Route: Inhaled.1 Sexual Sexually active: No. Exercise Exercise duration: 0. Employment/School 2, 3 Alcohol Past, Previous treatment: None. Smoking Status Former smoker; Type: Cigarettes; Previous treatment: None; Ready to change: No; Exposure to Tobacco Smoke None; Cigarette Smoking Last 365 Days No; Reg Smoking Cessation Counseling No 1denies 2Retired 3retired Assessment and Plan No data available for this section
--- OUTSIDE RECORDS SUMMARY | 2018-07-24 14:45 | XMS REPORT | Summary of Care ---
Author Author [facility] Organization [facility] Address Unknown Phone Unavailable Encounter GABRIELLA Ferrara(CAYLA) [id number] Date(s): 07/23/16 - 07/23/16 [facility] [address] [place] [address]- [phone] Discharge Disposition: Home or Self Care Attending Physician: Ale Iglesias MD Referring Physician: Ale Iglesias MD Vital Signs 1 2 3 Most recent to oldest [Reference Range]: 149.86 cm (07/16/16 8:10 AM) Height 97.5 DegF (07/16/16 9:14 AM) Temperature Oral [96.4-99.1 DegF] 102/50 mmHg (07/23/16 12:17 PM) 100/49 mmHg (07/23/16 11:25 AM) 100/49 mmHg (07/23/16 11:11 AM) Blood Pressure [90-140/60-90 mmHg] 18 BRMIN (07/23/16 12:17 PM) 24 BRMIN *HI* (07/23/16 11:25 AM) 18 BRMIN (07/23/16 11:11 AM) Respiratory Rate [14-20 BRMIN] 79 bpm (07/16/16 9:14 AM) Peripheral Pulse Rate [60-100 bpm] 60 kg (07/16/16 8:10 AM) Weight 26.72 m2 (07/16/16 8:10 AM) Body Mass Index Problem List Condition Effective Dates Status Health Status Informant Arthritis(Confirmed) Resolved Cholecystitis(Confir Resolved med) DM (diabetes Active mellitus), type 2(Confirmed) HTN Active (hypertension)(Confi rmed) Hyperlipidemia(Confi Active rmed) Thrombocytopenia(Con Active firmed) Hepatitis Active B(Confirmed) Allergies, Adverse Reactions, Alerts Substance Reaction Severity Status simvastatin Active Medications Dextrose 12.5 mg, IVPB, ONCE, 0 Refill(s) Start Date: 07/23/16 Status: Ordered Dextrose 12.5 mg, Route: IVPB, ONCE, Dosing Weight 60, kg, Priority: STAT, Start date: 10:27:00 CDT, Stop date: 07/23/16 10:27:00 CDT Start Date: 07/23/16 Stop Date: 07/23/16 Status: Ordered Sodium Chloride 0.9% IV 1000 mL 1,000 mL, Rate: 25 ml/hr, Infuse over: 40 hr, Route: IV, Dosing Weight 60 kg, To richie Volume: 1,000, Start date: 07/23/16 7:03:00 CDT, Duration: 30 day, Stop date : 08/22/16 7:02:00 [employer] Start Date: 07/23/16 Stop Date: 07/23/16 Status: Discontinued Toujeo SoloStar 300 units/mL subcutaneous solution 80 unit, SUB-Q, Bedtime, 0 Refill(s) Start Date: 07/16/16 Status: Ordered Results BLOOD BANK RESULTS Most recent to 1 2 oldest [Reference Range]: ABO/Rh O POS *Unknown* (07/16/16 8:45 AM) Antibody Scrn Negative (07/16/16 8:45 AM) Platelet product Product available (07/16/16 8:14 AM) ELECTROLYTES Most recent to 1 2 oldest [Reference Range]: Sodium Lvl [135-145 136 mEq/L mEq/L] (07/16/16 8:45 AM) Potassium Lvl 4.1 mEq/L [3.5-5.1 mEq/L] (07/16/16 8:45 AM) Chloride Lvl [95-109 100 mEq/L mEq/L] (07/16/16 8:45 AM) CO2 [24-32 mEq/L] 31 mEq/L (07/16/16 8:45 AM) AGAP [10.0-20.0 9.1 mEq/L mEq/L] *LOW* (07/16/16 8:45 AM) CHEM PANEL Most recent to 1 2 oldest [Reference Range]: Creatinine Lvl 1.20 mg/dL [0.50-1.40 mg/dL] (07/16/16 8:45 AM) eGFR 47 mL/min/1.73m2 1 *NA* (07/16/16 8:45 AM) BUN [7-22 mg/dL] 17 mg/dL (07/16/16 8:45 AM) B/C Ratio [6-25] 14 (07/16/16 8:45 AM) Glucose Lvl [70-99 310 mg/dL mg/dL] *HI* (07/16/16 8:45 AM) Total Protein 6.4 g/dL 6.4 g/dL [6.4-8.4 g/dL] (07/16/16 8:45 AM) (07/16/16 8:45 AM) Albumin Lvl [3.5-5.0 3.0 g/dL 3.0 g/dL g/dL] *LOW* *LOW* (07/16/16 8:45 AM) (07/16/16 8:45 AM) Globulin [2.7-4.2 3.4 g/dL 3.4 g/dL g/dL] (07/16/16 8:45 AM) (07/16/16 8:45 AM) A/G Ratio [0.7-1.6] 0.9 0.9 (07/16/16 8:45 AM) (07/16/16 8:45 AM) Calcium Lvl 8.4 mg/dL [8.5-10.5 mg/dL] *LOW* (07/16/16 8:45 AM) ALT [0-65 unit/L] 29 unit/L 29 unit/L (07/16/16 8:45 AM) (07/16/16 8:45 AM) AST [0-37 unit/L] 19 unit/L 17 unit/L (07/16/16 8:45 AM) (07/16/16 8:45 AM) Alk Phos [39-136 71 unit/L 72 unit/L unit/L] (07/16/16 8:45 AM) (07/16/16 8:45 AM) Bili Total [0.2-1.3 0.2 mg/dL 0.2 mg/dL mg/dL] (07/16/16 8:45 AM) (07/16/16 8:45 AM) Bili Direct [0.0-0.3 0.1 mg/dL mg/dL] (07/16/16 8:45 AM) Bili Indirect 0.1 mg/dL [0.0-1.0 mg/dL] (07/16/16 8:45 AM) 1Result Comment: The eGFR is calculated using [...] be mul tiplied by the estimated BMI. IMMUNOLOGY Most recent to 1 2 oldest [Reference Range]: Hep Bs Ag [Negative] Negative *NA* (07/16/16 8:45 AM) HEMATOLOGY Most recent to 1 2 oldest [Reference Range]: WBC [3.7-10.4 K/CMM] 7.6 K/CMM (07/16/16 8:45 AM) RBC [4.20-5.40 3.69 M/CMM M/CMM] *LOW* (07/16/16 8:45 AM) Hgb [12.0-16.0 g/dL] 11.0 g/dL *LOW* (07/16/16 8:45 AM) Hct [36.0-48.0 %] 33.1 % *LOW* (07/16/16 8:45 AM) MCV [80.0-98.0 fL] 89.7 fL (07/16/16 8:45 AM) MCH [27.0-31.0 pg] 29.7 pg (07/16/16 8:45 AM) MCHC [32.0-36.0 33.1 g/dL g/dL] (07/16/16 8:45 AM) RDW [11.5-14.5 %] 14.4 % (07/16/16 8:45 AM) Platelet [133-450 134 K/CMM K/CMM] (07/16/16 8:45 AM) MPV [7.4-10.4 fL] 9.0 fL (07/16/16 8:45 AM) Segs [45.0-75.0 %] 86.2 % *HI* (07/16/16 8:45 AM) Lymphocytes 8.6 % [20.0-40.0 %] *LOW* (07/16/16 8:45 AM) Monocytes [2.0-12.0 3.6 % %] (07/16/16 8:45 AM) Eosinophils [0.0-4.0 1.1 % %] (07/16/16 8:45 AM) Basophils [0.0-1.0 0.5 % %] (07/16/16 8:45 AM) Segs-Bands # 6.6 K/CMM [1.5-8.1 K/CMM] (07/16/16 8:45 AM) Lymphocytes # 0.7 K/CMM [1.0-5.5 K/CMM] *LOW* (07/16/16 8:45 AM) Monocytes # [0.0-0.8 0.3 K/CMM K/CMM] (07/16/16 8:45 AM) Eosinophils # 0.1 K/CMM [0.0-0.5 K/CMM] (07/16/16 8:45 AM) PT [12.0-14.7 14.1 seconds seconds] (07/16/16 8:45 AM) INR [0.85-1.17] 1.07 (07/16/16 8:45 AM) PTT [22.9-35.8 27.8 seconds seconds] (07/16/16 8:45 AM) MOLECULAR DIAGNOSTIC Most recent to 1 2 oldest [Reference Range]: Hep B PCR Qnt Not Detected (07/16/16 8:45 AM) HBV DNA Log10 <1.3 IU/mL *NA* (07/16/16 8:45 AM) Immunizations No data available for this section [...]
--- OUTSIDE RECORDS SUMMARY | 2018-07-24 14:45 | XMS REPORT | Summary of Care ---
Author Organization Unknown Address Unknown Phone Unavailable Encounter [facility](CAYLA) [id number] Date(s): 02/23/14 - 03/01/14 [facility] [address] Discharge Disposition: Home Physician Attending: Fernando Avery MD Physician Admitting: Fernando Avery MD Reason for Visit HYPOGLYCEMIA Vital Signs 1 2 3 Most recent to oldest [Reference Range]: 149.86 cm (02/23/14 6:33 PM) 149.86 cm (02/23/14 8:20 AM) Height 97.8 DegF (03/01/14 8:00 AM) 98.5 DegF (03/01/14 3:42 AM) 98.5 DegF (03/01/14 12:22 AM) Temperature Oral [96.4-99.1 DegF] 148 mmHg *HI* (03/01/14 8:00 AM) 128 mmHg (03/01/14 3:42 AM) 124 mmHg (03/01/14 12:22 AM) Systolic Blood Pressure [90-140 mmHg] 73 mmHg (03/01/14 8:00 AM) 75 mmHg (03/01/14 3:42 AM) 67 mmHg (03/01/14 12:22 AM) Diastolic Blood Pressure [60-90 mmHg] 18 BRMIN (03/01/14 8:00 AM) 18 BRMIN (03/01/14 3:42 AM) 18 BRMIN (03/01/14 12:22 AM) Respiratory Rate [14-20 BRMIN] 67 bpm (03/01/14 8:00 AM) 72 bpm (03/01/14 3:42 AM) 69 bpm (03/01/14 12:22 AM) Peripheral Pulse Rate [60-100 bpm] 64.545 kg (02/23/14 6:33 PM) 64.545 kg (02/23/14 8:20 AM) Weight 28.74 m2 (02/23/14 6:33 PM) 28.74 m2 (02/23/14 8:20 AM) Body Mass Index Problem List Condition Effective Dates Status Health Status Informant Arthritis(Confirmed) Resolved Cholecystitis(Confir Resolved med) DM (diabetes Active mellitus), type 2(Confirmed) HTN Active (hypertension)(Confi rmed) Hyperlipidemia(Confi Active rmed) Allergies, Adverse Reactions, Alerts Substance Reaction Severity Status Zocor Active Medications aspirin 81 mg tablet, chewable 40.5 mg, 0.5 tab, Route: PO, Drug form: CHEWTAB, Daily, Dosing Weight 64.545, kg , Start date: 02/24/14 9:00:00, Duration: 30 day, Stop date: 03/25/14 9:00:00 Notes: Take with food. Start Date: 02/24/14 Stop Date: 03/01/14 Status: Discontinued aspirin 81 mg tablet, chewable 40.5 mg=0.5 tab, PO, Daily, # 30 tab, 0 Refill(s) Start Date: 02/23/14 Status: Ordered atropine 0.5 mg, 5 mL, Route: IVP, Drug form: INJ, PRN, PRN Bradycardia, Start date: 01/27 06/11 17:20:00, Duration: 30 day, Stop date: 03/25/14 17:19:00 Start Date: 02/23/14 Stop Date: 03/01/14 Status: Discontinued carvedilol 12.5 mg, 1 tab, Route: PO, Drug form: TAB, Q12H, Dosing Weight 64.545, kg, Start date: 02/28/14 21:00:00, Duration: 30 day, Stop date: 03/30/14 9:00:00 Notes: Give with food. (Same As: Coreg) Start Date: 02/28/14 Stop Date: 03/01/14 Status: Discontinued carvedilol 25 mg, 2 tab, Route: PO, Drug form: TAB, BID, Dosing Weight 64.545, kg, Start da te: 02/23/14 17:00:00, Duration: 30 day, Stop date: 03/25/14 9:00:00 Notes: Give with food. (Same As: Coreg) Start Date: 02/23/14 Stop Date: 02/28/14 Status: Discontinued cefTRIAXone + Sodium Chloride 0.9% IV 100 mL 1 gm, Route: IVPB, [id number], Dosing Weight 64.545, kg, Start date: 02/23/14 16:00 :00, Duration: 30 day, Stop date: 03/24/14 16:00:00 Notes: (Same As: Rocephin). Use with 100ml NS mini-bag PLUS and infuse over 30 min Start Date: 02/23/14 Stop Date: 03/01/14 Status: Discontinued Crestor 40 mg, 4 tab, Route: PO, Drug form: TAB, Bedtime, Dosing Weight 64.545, kg, Star t date: 02/23/14 21:00:00, Duration: 30 day, Stop date: 03/24/14 21:00:00 Notes: (Same As: Crestor) Start Date: 02/23/14 Stop Date: 03/01/14 Status: Discontinued Dextrose 50% Syringe 12.5 gm, 25 mL, Route: IVP, Drug Form: INJ, Dosing Weight 64.545, kg, PRN, PRN B lood Glucose Results, Start date: 02/23/14 14:41:00, Duration: 30 day, Stop date : 03/25/14 14:40:00 Start Date: 02/23/14 Stop Date: 03/01/14 Status: Discontinued Dextrose 50% Syringe 25 gm, 50 mL, Route: IVP, Drug Form: INJ, Dosing Weight 64.545, kg, PRN, PRN Blo od Glucose Results, Start date: 02/23/14 14:41:00, Duration: 30 day, Stop date: 03/25/14 14:40:00 Start Date: 02/23/14 Stop Date: 03/01/14 Status: Discontinued Dextrose 50% Syringe 12.5 gm, 25 mL, Route: IVP, Drug Form: INJ, Dosing Weight 64.545, kg, PRN, PRN B lood Glucose Results, Start date: 02/23/14 16:52:00, Duration: 30 day, Stop date : 03/25/14 16:51:00 Start Date: 02/23/14 Stop Date: 03/01/14 Status: Discontinued glucagon 1 mg, Route: IM, PRN, Dosing Weight 64.545, kg, PRN Blood Glucose Results, Start date: 02/23/14 14:41:00, Duration: 30 day, Stop date: 03/25/14 14:40:00 Start Date: 02/23/14 Stop Date: 02/23/14 Status: Deleted glucagon 1 mg, Route: IM, Drug form: PDR/INJ, PRN, Dosing Weight 64.545, kg, PRN Blood Gl ucose Results, Priority: STAT, Start date: 02/23/14 16:52:00, Duration: 30 day, Stop date: 03/25/14 16:51:00 Start Date: 02/23/14 Stop Date: 03/01/14 Status: Discontinued hydrochlorothiazide 25 mg oral tablet 25 mg, 1 tab, Route: PO, Drug form: TAB, Daily, Start date: 02/24/14 9:00:00, Du ration: 30 day, Stop date: 03/25/14 9:00:00 Notes: (Same as: Hydrodiuril) With food. Start Date: 02/24/14 Stop Date: 02/26/14 Status: Discontinued hydrochlorothiazide-lisinopril 25 mg-20 mg oral tablet 1 tab, PO, Daily, # 30 tab, 0 Refill(s) Start Date: 02/23/14 Stop Date: 03/01/14 Status: Discontinued hydrochlorothiazide-lisinopril 25 mg-20 mg oral tablet 1 tab, Route: PO, Drug Form: TAB, Dosing Weight 64.545, kg, Daily, Start date: 0 02/24/14 9:00:00, Duration: 30 day, Stop date: 03/25/14 9:00:00 Start Date: 02/24/14 Stop Date: 02/23/14 Status: Deleted insulin aspart 1 unit, 0.01 mL, Route: SUB-Q, Drug form: SOLN, Bedtime, Dosing Weight 64.545, k g, PRN Blood Glucose Results, Start date: 02/23/14 14:41:00, Duration: 30 day, S top date: 03/25/14 14:40:00 Notes: Roll in palms of hands gently; Do not shake vigorously. (Same as: NovoLO G)"single patient use only" Stable for 28 days at room temperature.Expires in _ ____ days from Date Start Date: 02/23/14 Stop Date: 03/01/14 Status: Discontinued insulin aspart 1 unit, 0.01 mL, Route: SUB-Q, Drug form: SOLN, TID-Before Meals, Dosing Weight 64.545, kg, PRN Blood Glucose Results, Start date: 02/23/14 14:41:00, Duration: 30 day, Stop date: 03/25/14 14:40:00 Notes: Roll in palms of hands gently; Do not shake vigorously. (Same as: NovoLO G)"single patient use only" Stable for 28 days at room temperature.Expires in _ ____ days from Date Start Date: 02/23/14 Stop Date: 03/01/14 Status: Discontinued insulin aspart 5 unit, 0.05 mL, Route: SUB-Q, Drug form: SOLN, TID-Before Meals, Dosing Weight 64.545, kg, PRN Blood Glucose Results, Start date: 02/23/14 14:41:00, Duration: 30 day, Stop date: 03/25/14 14:40:00 Notes: Roll in palms of hands gently; Do not shake vigorously. (Same as: NovoLO G)"single patient use only" Stable for 28 days at room temperature.Expires in _ ____ days from Date Start Date: 02/23/14 Stop Date: 03/01/14 Status: Discontinued insulin aspart 2 unit, 0.02 mL, Route: SUB-Q, Drug form: SOLN, TID-Before Meals, Dosing Weight 64.545, kg, PRN Blood Glucose Results, Start date: 02/23/14 14:41:00, Duration: 30 day, Stop date: 03/25/14 14:40:00 Notes: Roll in palms of hands gently; Do not shake vigorously. (Same as: NovoLO G)"single patient use only" Stable for 28 days at room temperature.Expires in _ ____ days from Date Start Date: 02/23/14 Stop Date: 03/01/14 Status: Discontinued insulin aspart 3 unit, 0.03 mL, Route: SUB-Q, Drug form: SOLN, TID-Before Meals, Dosing Weight 64.545, kg, PRN Blood Glucose Results, Start date: 02/23/14 14:41:00, Duration: 30 day, Stop date: 03/25/14 14:40:00 Notes: Roll in palms of hands gently; Do not shake vigorously. (Same as: NovoLO G)"single patient use only" Stable for 28 days at room temperature.Expires in _ ____ days from Date Start Date: 02/23/14 Stop Date: 03/01/14 Status: Discontinued insulin aspart 4 unit, 0.04 mL, Route: SUB-Q, Drug form: SOLN, TID-Before Meals, Dosing Weight 64.545, kg, PRN Blood Glucose Results, Start date: 02/23/14 14:41:00, Duration: 30 day, Stop date: 03/25/14 14:40:00 Notes: Roll in palms of hands gently; Do not shake vigorously. (Same as: NovoLO G)"single patient use only" Stable for 28 days at room temperature.Expires in _ ____ days from Date Start Date: 02/23/14 Stop Date: 03/01/14 Status: Discontinued insulin aspart 2 unit, 0.02 mL, Route: SUB-Q, Drug form: SOLN, Bedtime, Dosing Weight 64.545, k g, PRN Blood Glucose Results, Start date: 02/23/14 14:41:00, Duration: 30 day, S top date: 03/25/14 14:40:00 Notes: Roll in palms of hands gently; Do not shake vigorously. (Same as: NovoLO G)"single patient use only" Stable for 28 days at room temperature.Expires in _ ____ days from Date Start Date: 02/23/14 Stop Date: 03/01/14 Status: Discontinued insulin aspart 3 unit, 0.03 mL, Route: SUB-Q, Drug form: SOLN, Bedtime, Dosing Weight 64.545, k g, PRN Blood Glucose Results, Start date: 02/23/14 14:41:00, Duration: 30 day, S top date: 03/25/14 14:40:00 Notes: Roll in palms of hands gently; Do not shake vigorously. (Same as: NovoLO G)"single patient use only" Stable for 28 days at room temperature.Expires in _ ____ days from Date Start Date: 02/23/14 Stop Date: 03/01/14 Status: Discontinued insulin aspart 4 unit, 0.04 mL, Route: SUB-Q, Drug form: SOLN, Bedtime, Dosing Weight 64.545, k g, PRN Blood Glucose Results, Start date: 02/23/14 14:41:00, Duration: 30 day, S top date: 03/25/14 14:40:00 Notes: Roll in palms of hands gently; Do not shake vigorously. (Same as: NovoLO G)"single patient use only" Stable for 28 days at room temperature.Expires in _ ____ days from Date Start Date: 02/23/14 Stop Date: 03/01/14 Status: Discontinued insulin aspart 100 units/mL subcutaneous solution 15 unit=0.15 mL, SUB-Q, TID-Before Meals, # 10 mL, 0 Refill(s) Start Date: 03/01/14 Status: Ordered insulin detemir 100 units/mL subcutaneous solution 30 unit=0.3 mL, SUB-Q, Bedtime, # 10 mL, 0 Refill(s) Start Date: 03/01/14 Status: Ordered Insulin regular Route: SUB-Q, ONCE, Dosing Weight 64.545, kg, Start date: 02/23/14 14:19:00, Sto p date: 02/23/14 14:19:00 Start Date: 02/23/14 Stop Date: 02/23/14 Status: Completed Levemir 25 unit, 0.25 mL, Route: SUB-Q, Drug form: INJ, Q12H, Dosing Weight 64.545, kg, Start date: 02/23/14 21:00:00, Duration: 30 day, Stop date: 03/25/14 9:00:00 Notes: Same as Levemir "single patient use only" Start Date: 02/23/14 Stop Date: 02/25/14 Status: Discontinued Levemir 30 unit, 0.3 mL, Route: SUB-Q, Drug form: INJ, Bedtime, Dosing Weight 64.545, kg , Start date: 02/25/14 21:00:00, Duration: 30 day, Stop date: 03/26/14 21:00:00 Notes: Same as Levemir "single patient use only" Start Date: 02/25/14 Stop Date: 03/01/14 Status: Discontinued nitroglycerin 0.4 mg sublingual tablet 0.4 mg, 1 tab, Route: SL, Drug form: TAB, Q5Min, PRN Chest Pain, Start date: 17:20:00, Duration: 30 day, Stop date: 03/25/14 17:19:00 Notes: (Same as:Nitroquick, Nitrostat)"Do Not Crush" Sublingual tablet Start Date: 02/23/14 Stop Date: 03/01/14 Status: Discontinued NovoLOG 15 unit, 0.15 mL, Route: SUB-Q, Drug form: SOLN, TID-Before Meals, Dosing Weight 64.545, kg, Start date: 02/24/14 7:30:00, Stop date: 03/25/14 16:30:00 Notes: Roll in palms of hands gently; Do not shake vigorously. (Same as: NovoLO G)"single patient use only" Stable for 28 days at room temperature.Expires in _ ____ days from Date Start Date: 02/24/14 Stop Date: 03/01/14 Status: Discontinued NS (Bolus) IV - - 125 mL, 125 ml/hr, Infuse Over: 1 hr, Route: IV, Continuous, Priority: STAT, Dos ing Weight 64.545 kg, Start date: 02/28/14 15:00:00, Duration: 30 day, Stop date : 03/30/14 14:59:00 Start Date: 02/28/14 Stop Date: 02/28/14 Status: Deleted potassium chloride 20 mEq, 1 tab, Route: PO, Drug form: ERTAB, ONCE, Dosing Weight 64.545, kg, Star t date: 02/27/14 8:17:00, Stop date: 02/27/14 8:17:00 Notes: (Same as: K-Dur 20)"Do Not Crush" With food and full glass of water Start Date: 02/27/14 Stop Date: 02/27/14 Status: Completed potassium chloride 20 mEq, 1 tab, Route: PO, Drug form: ERTAB, ONCE, Dosing Weight 64.545, kg, Star t date: 02/28/14 12:03:00, Stop date: 02/28/14 12:03:00 Notes: (Same as: K-Dur 20)"Do Not Crush" With food and full glass of water Start Date: 02/28/14 Stop Date: 02/28/14 Status: Completed Prinivil 20 mg, 1 tab, Route: PO, Drug form: TAB, Daily, Start date: 02/24/14 9:00:00, Du ration: 30 day, Stop date: 03/25/14 9:00:00 Notes: (Same as: Prinivil, Zestril) Start Date: 02/24/14 Stop Date: 02/27/14 Status: Discontinued Saline Flush 0.9% 5 mL, Route: IVP, Drug Form: INJ, Dosing Weight 64.545, kg, PRN, PRN Line Flush, Start date: 02/23/14 8:31:00, Duration: 30 day, Stop date: 03/25/14 8:30:00 Notes: Same as: BD Posiflush Sterile Start Date: 02/23/14 Stop Date: 02/24/14 Status: Discontinued Saline Flush 0.9% 5 ml, Route: IVP, Drug Form: INJ, Dosing Weight 64.545, kg, PRN, PRN Line Flush, Start date: 02/23/14 16:52:00, Duration: 30 day, Stop date: 03/25/14 16:51:00 Notes: (Same as: BD Posiflush) Start Date: 02/23/14 Stop Date: 03/01/14 Status: Discontinued Sodium Chloride 0.45% IV 1,000 mL 1,000 mL, Rate: 125 ml/hr, Infuse over: 8 hr, Route: IV, Dosing Weight 64.545 kg , Total Volume: 1,000, Start date: 02/23/14 16:52:00, Duration: 30 day, Stop irene e: 03/25/14 16:51:00 Start Date: 02/23/14 Stop Date: 02/24/14 Status: Discontinued Sodium Chloride 0.9% IV 1,000 mL 1,000 mL, Rate: 125 ml/hr, Infuse over: 8 hr, Route: IV, Dosing Weight 64.545 kg , Total Volume: 1,000, Start date: 02/28/14 15:03:00, Duration: 30 day, Stop irene e: 03/30/14 15:02:00 Start Date: 02/28/14 Stop Date: 03/01/14 Status: Discontinued Tylenol 650 mg, Route: PO, Drug form: TAB, ONCE, Dosing Weight 64.545, kg, PRN Fever, St art date: 02/23/14 14:21:00, Stop date: 03/25/14 14:20:00 Start Date: 02/23/14 Stop Date: 02/23/14 Status: Completed Results ELECTROLYTES 1 2 3 Most recent to oldest [Reference Range]: 138 mEq/L (03/01/14 6:16 AM) 139 mEq/L (02/28/14 10:06 AM) 138 mEq/L (02/27/14 3:44 AM) Sodium Lvl [135-145 mEq/L] 3.8 mEq/L (03/01/14 6:16 AM) 3.3 mEq/L *LOW* (02/28/14 10:06 AM) 3.3 mEq/L *LOW* (02/27/14 3:44 AM) Potassium Lvl [3.5-5.1 mEq/L] 106 mEq/L (03/01/14 6:16 AM) 102 mEq/L (02/28/14 10:06 AM) 101 mEq/L (02/27/14 3:44 AM) Chloride Lvl [95-109 mEq/L] 23 mEq/L *LOW* (03/01/14 6:16 AM) 27 mEq/L (02/28/14 10:06 AM) 27 mEq/L (02/27/14 3:44 AM) CO2 [24-32 mEq/L] 12.8 mEq/L (03/01/14 6:16 AM) 13.3 mEq/L (02/28/14 10:06 AM) 13.3 mEq/L (02/27/14 3:44 AM) AGAP [10.0-20.0 mEq/L] CHEM PANEL 1 2 3 Most recent to oldest [Reference Range]: 1.8 mg/dL *HI* (03/01/14 6:16 AM) 2.2 mg/dL *HI* (02/28/14 10:06 AM) 2.1 mg/dL *HI* (02/27/14 3:44 AM) Creatinine Lvl [0.5-1.4 mg/dL] 29 mL/min/1.73m2 1 *NA* (03/01/14 6:16 AM) 23 mL/min/1.73m2 2 *NA* (02/28/14 10:06 AM) 24 mL/min/1.73m2 3 *NA* (02/27/14 3:44 AM) eGFR 28 mg/dL *HI* (03/01/14 6:16 AM) 33 mg/dL *HI* (02/28/14 10:06 AM) 37 mg/dL *HI* (02/27/14 3:44 AM) BUN [7-22 mg/dL] 25 (02/23/14 9:50 AM) B/C Ratio [6-25] 211 mg/dL 4 *HI* (03/01/14 6:16 AM) 198 mg/dL 5 *HI* (02/28/14 10:06 AM) 236 mg/dL 6 *HI* (02/27/14 3:44 AM) Glucose Lvl [70-99 mg/dL] 7.7 g/dL (02/23/14 9:50 AM) Total Protein [6.4-8.4 g/dL] 3.3 g/dL *LOW* (02/23/14 9:50 AM) Albumin Lvl [3.5-5.0 g/dL] 4.4 g/dL *HI* (02/23/14 9:50 AM) Globulin [2.0-4.0 g/dL] 0.8 (02/23/14 9:50 AM) A/G Ratio [0.7-1.6] 8.8 mg/dL (03/01/14 6:16 AM) 9.3 mg/dL (02/28/14 10:06 AM) 9.1 mg/dL (02/27/14 3:44 AM) Calcium Lvl [8.5-10.5 mg/dL] 3.7 mg/dL (02/26/14 3:29 AM) Phosphorus [2.5-4.5 mg/dL] 1.8 mg/dL (02/26/14 3:29 AM) Magnesium Lvl [1.8-2.4 mg/dL] 29 unit/L (02/23/14 9:50 AM) ALT [0-65 unit/L] 21 unit/L (02/23/14 9:50 AM) AST [0-37 unit/L] 65 unit/L (02/23/14 9:50 AM) Alk Phos [39-136 unit/L] 0.4 mg/dL (02/23/14 9:50 AM) Bili Total [0.2-1.3 mg/dL] 1Result Comment: The eGFR is calculated using [...] be mul tiplied by the estimated BMI. 2Result Comment: The eGFR is calculated using [...] be mul tiplied by the estimated BMI. 3Result Comment: The eGFR is calculated using [...] be mul tiplied by the estimated BMI. 4Interpretive Data: Adult reference range values reflect the clinical guidelines of the [employer]. 5Interpretive Data: Adult reference range values reflect the clinical guidelines of the [employer]. 6Interpretive Data: Adult reference range values reflect the clinical guidelines of the [employer]. CARDIAC ENZYMES 1 2 3 Most recent to oldest [Reference Range]: 162 unit/L (02/23/14 9:50 AM) Total CK [12-191 unit/L] 2.2 ng/mL (02/23/14 9:50 AM) CK MB [0.5-3.6 ng/mL] 1.4 (02/23/14 9:50 AM) CK MB Index [0.0-2.5] <0.02 ng/mL (02/23/14 9:50 AM) Troponin-I [0.00-0.40 ng/mL] URINE AND STOOL 1 2 3 Most recent to oldest [Reference Range]: Marked *ABN* (02/23/14 2:20 PM) UA Turbidity [Clear] Yellow *NA* (02/23/14 2:20 PM) UA Color [Yellow] 5.0 (02/23/14 2:20 PM) UA pH [5.0-8.0] 1.011 (02/23/14 2:20 PM) UA Spec Grav [<=1.030] 500 mg/dL *ABN* (02/23/14 2:20 PM) UA Glucose [Negative mg/dL] Moderate *ABN* (02/23/14 2:20 PM) UA Blood [Negative] Negative mg/dL *NA* (02/23/14 2:20 PM) UA Ketones [Negative mg/dL] 100 mg/dL *ABN* (02/23/14 2:20 PM) UA Protein [Negative mg/dL] <=1.0 mg/dL *NA* (02/23/14 2:20 PM) UA Urobilinogen [0.1-1.0 mg/dL] Negative *NA* (02/23/14 2:20 PM) UA Bili [Negative] Negative (02/23/14 2:20 PM) UA Leuk Est [Negative] Negative (02/23/14 2:20 PM) UA Nitrite [Negative] 10 /HPF *HI* (02/23/14 2:20 PM) UA WBC [0-5 /HPF] 2 /HPF (02/23/14 2:20 PM) UA RBC [0-2 /HPF] Occasional /HPF *NA* (02/23/14 2:20 PM) UA Bacteria [None Seen /HPF] Moderate /LPF *ABN* (02/23/14 2:20 PM) UA Sq Epi [Few /LPF] Occasional /HPF *ABN* (02/23/14 2:20 PM) UA Telford Yeast [None Seen /HPF] HEMATOLOGY 1 2 3 Most recent to oldest [Reference Range]: 10.5 K/CMM *HI* (03/01/14 6:16 AM) 8.2 K/CMM (02/24/14 4:22 AM) 8.9 K/CMM (02/23/14 9:50 AM) WBC [3.7-10.4 K/CMM] 3.34 M/CMM *LOW* (03/01/14 6:16 AM) 3.50 M/CMM *LOW* (02/24/14 4:22 AM) 3.94 M/CMM *LOW* (02/23/14 9:50 AM) RBC [4.20-5.40 M/CMM] 10.0 g/dL *LOW* (03/01/14 6:16 AM) 10.5 g/dL *LOW* (02/24/14 4:22 AM) 11.8 g/dL *LOW* (02/23/14 9:50 AM) Hgb [12.0-16.0 g/dL] 29.5 % *LOW* (03/01/14 6:16 AM) 30.9 % *LOW* (02/24/14 4:22 AM) 35.0 % *LOW* (02/23/14 9:50 AM) Hct [36.0-48.0 %] 88.3 fL (03/01/14 6:16 AM) 88.4 fL (02/24/14 4:22 AM) 88.8 fL (02/23/14 9:50 AM) MCV [81.0-99.0 fL] 29.9 pg (03/01/14 6:16 AM) 30.1 pg (02/24/14 4:22 AM) 29.9 pg (02/23/14 9:50 AM) MCH [27.0-31.0 pg] 33.9 g/dL (03/01/14 6:16 AM) 34.1 g/dL (02/24/14 4:22 AM) 33.7 g/dL (02/23/14 9:50 AM) MCHC [32.0-36.0 g/dL] 14.4 % (03/01/14 6:16 AM) 15.0 % *HI* (02/24/14 4:22 AM) 14.6 % *HI* (02/23/14 9:50 AM) RDW [11.5-14.5 %] 131 K/CMM *LOW* (03/01/14 6:16 AM) 85 K/CMM *LOW* (02/24/14 4:22 AM) 113 K/CMM *LOW* (02/23/14 9:50 AM) Platelet [133-450 K/CMM] 9.4 fL (03/01/14 6:16 AM) 9.8 fL (02/24/14 4:22 AM) 9.4 fL (02/23/14 9:50 AM) MPV [7.4-10.4 fL] 72.5 % (03/01/14 6:16 AM) 57.2 % (02/24/14 4:22 AM) 81.9 % *HI* (02/23/14 9:50 AM) Segs [45.0-75.0 %] 18.7 % *LOW* (03/01/14 6:16 AM) 27.6 % (02/24/14 4:22 AM) 11.7 % *LOW* (02/23/14 9:50 AM) Lymphocytes [20.0-40.0 %] 6.0 % (03/01/14 6:16 AM) 11.2 % (02/24/14 4:22 AM) 6.0 % (02/23/14 9:50 AM) Monocytes [2.0-12.0 %] 2.6 % (03/01/14 6:16 AM) 3.4 % (02/24/14 4:22 AM) 0.3 % (02/23/14 9:50 AM) Eosinophils [0.0-4.0 %] 0.2 % (03/01/14 6:16 AM) 0.6 % (02/24/14 4:22 AM) 0.1 % (02/23/14 9:50 AM) Basophils [0.0-1.0 %] 7.6 K/CMM (03/01/14 6:16 AM) 4.7 K/CMM (02/24/14 4:22 AM) 7.3 K/CMM (02/23/14 9:50 AM) Segs-Bands # [1.5-8.1 K/CMM] 2.0 K/CMM (03/01/14 6:16 AM) 2.3 K/CMM (02/24/14 4:22 AM) 1.0 K/CMM (02/23/14 9:50 AM) Lymphocytes # [1.0-5.5 K/CMM] 0.6 K/CMM (03/01/14 6:16 AM) 0.9 K/CMM *HI* (02/24/14 4:22 AM) 0.5 K/CMM (02/23/14 9:50 AM) Monocytes # [0.0-0.8 K/CMM] 0.3 K/CMM (03/01/14 6:16 AM) 0.3 K/CMM (02/24/14 4:22 AM) 0.0 K/CMM (02/23/14 9:50 AM) Eosinophils # [0.0-0.5 K/CMM] 0.0 K/CMM (03/01/14 6:16 AM) 0.1 K/CMM (02/24/14 4:22 AM) 0.0 K/CMM (02/23/14 9:50 AM) Basophils # [0.0-0.2 K/CMM] Medications Administered During Your Visit No data available for this section Immunizations No data available for this section Procedures Procedure Type Body Site Date of Procedure Related Diagnosis Tonsillectomy Social History Social History Type Response Substance Abuse Use: None1 Sexual Sexually active: No Exercise Employment/School 2, 3 Alcohol Use: Never Smoking Status Never smoker, Exposure to Tobacco Smoke None, Cigarette Smoking Last 365 Days No, Reg Smoking Cessation Counseling No 1denies 2Retired 3retired Assessment and Plan Extracted from: Title: Clinical Document Author: Natalie Tanner MD Date: 03/01/14 Endocrine Daily Progress Note Patient Room: [address] [place] [address] (: 1950) F Attending: Fernando Avery MDPhone: Service: Internal Medicine Chief Complaint: Blood sugars improved. Objective: VitalsTmp(F)[id number] 03/01 08:[id number]------ 03/01 03:[id number]--- 03/01 00:[id number]--- 02/28 20:[id number]/351173--- 02/28 16:0098.275009/7920------ 24 Hr Tmax: 99.2F (37.33c) at 02/28 20:00Vital Signs are the last 5 in the past 48 hours. DateWt(kg)Wt(lb)Ht(cm)Ht(in)Method 02/23 (initial) 64.55 [id number] 59.00Stated General- _NAD CVS- RRR Chest- Clear Abdomen- soft, ND, NT Extremities- no c/c/e Data: 24hr Labs 03/01 0623 Glucose LSP579 H 03/01 0616 Glucose Ivu038 H BUN28 H Creatinine Lvl1.8 H Sodium Wen081 Potassium Lvl3.8 Chloride Ynk498 CO223 L AGAP12.8 Calcium Lvl8.8 eGFR29 WBC10.5 H RBC3.34 L Hgb10.0 L Hct29.5 L MCV88.3 MCH29.9 MCHC33.9 RDW14.4 Fptgnhht837 L MPV9.4 Segs72.5 Monocytes6.0 Jseqgqmrrpq62.7 L Eosinophils2.6 Basophils0.2 Segs-Bands #7.6 Lymphocytes #2.0 Monocytes #0.6 Eosinophils #0.3 Basophils #0.0 02/28 2055 Glucose MSC468 H 02/28 1639 Glucose WWT073 H Assessment/Plan: Will continue with current basal /bolus. Scripts sent to pharmacy and detemir adjusted up
--- OUTSIDE RECORDS SUMMARY | 2018-07-24 14:45 | XMS REPORT | Summary of Care ---
Author Author [facility] Organization [facility] Address Unknown Phone Unavailable Encounter GABRIELLA Ferrara(CAYLA) [id number] Date(s): 04/24/16 - 04/28/16 [facility] [address] [place] [address]- [phone] Discharge Disposition: Home or Self Care Attending Physician: Khoi Brown MD Admitting Physician: Khoi Brown MD Vital Signs 1 2 3 Most recent to oldest [Reference Range]: 149.86 cm (04/24/16 9:39 PM) Height 98.1 DegF (04/28/16 10:44 AM) 97.5 DegF (04/28/16 7:44 AM) 97.4 DegF (04/28/16 3:50 AM) Temperature Oral [96.4-99.1 DegF] 103/61 mmHg (04/28/16 11:29 AM) 112/60 mmHg (04/28/16 11:16 AM) 131/75 mmHg (04/28/16 10:44 AM) Blood Pressure [90-140/60-90 mmHg] 18 BRMIN (04/28/16 10:44 AM) 18 BRMIN (04/28/16 7:44 AM) 18 BRMIN (04/28/16 3:50 AM) Respiratory Rate [14-20 BRMIN] 72 bpm (04/28/16 11:29 AM) 68 bpm (04/28/16 11:16 AM) 70 bpm (04/28/16 11:01 AM) Peripheral Pulse Rate [60-100 bpm] 50.54 kg (04/24/16 9:39 PM) Weight 22.5 m2 (04/24/16 9:39 PM) Body Mass Index Problem List Condition Effective Dates Status Health Status Informant Arthritis(Confirmed) Resolved Cholecystitis(Confir Resolved med) DM (diabetes Active mellitus), type 2(Confirmed) HTN Active (hypertension)(Confi rmed) Hyperlipidemia(Confi Active rmed) Allergies, Adverse Reactions, Alerts Substance Reaction Severity Status Zocor Active Medications aspirin 81 mg, PO, Daily, 0 Refill(s) Start Date: 04/25/16 Status: Ordered aspirin 81 mg tablet, chewable 40.5 mg, 0.5 tab, Route: PO, Drug form: CHEWTAB, Q24H, Dosing Weight 50.54, kg, Start date: 04/24/16 23:00:00 CDT, Duration: 30 day, Stop date: 05/23/16 11:00:0 0 CDT Notes: Take with food. Start Date: 04/24/16 Stop Date: 04/25/16 Status: Discontinued aspirin 81 mg tablet, chewable 40.5 mg, 0.5 tab, Route: PO, Drug form: CHEWTAB, Daily, Dosing Weight 50.54, kg, Start date: 04/25/16 11:00:00 CDT, Duration: 30 day, Stop date: 05/25/16 9:00:00 CDT Notes: Take with food. Start Date: 04/25/16 Stop Date: 04/28/16 Status: Discontinued carvedilol 25 mg, 2 tab, Route: PO, Drug form: TAB, BID, Dosing Weight 50.54, kg, Start irene e: 04/24/16 23:28:00 CDT, Duration: 30 day, Stop date: 05/24/16 9:00:00 CDT Notes: Give with food. (Same As: Coreg) Start Date: 04/24/16 Stop Date: 04/28/16 Status: Discontinued cloNIDine 0.1 mg oral tablet 0.1 mg, 1 tab, Route: PO, Drug form: TAB, Q6H, Dosing Weight 50.54, kg, PRN Elev ated BP, Start date: 04/25/16 10:14:00 CDT, Duration: 30 day, Stop date: 6 10:13:00 CDT, SBP > 165 Notes: (Same As: Catapres) Start Date: 04/25/16 Stop Date: 04/28/16 Status: Discontinued Crestor 40 mg, Route: PO, Drug form: TAB, Bedtime, Dosing Weight 50.54, kg, Start date: 04/25/16 21:00:00 CDT, Duration: 30 day, Stop date: 05/24/16 21:00:00 CDT Start Date: 04/25/16 Stop Date: 04/24/16 Status: Deleted Dextrose 50% Syringe 12.5 gm, 25 mL, Route: IVP, Drug Form: INJ, Dosing Weight 50.54, kg, PRN, PRN Bl ood Glucose Results, Start date: 04/24/16 22:30:00 CDT, Duration: 30 day, Stop d ate: 05/24/16 22:29:00 CDT Start Date: 04/24/16 Stop Date: 04/28/16 Status: Discontinued Dextrose 50% Syringe 25 gm, 50 mL, Route: IVP, Drug Form: INJ, Dosing Weight 50.54, kg, PRN, PRN Bloo d Glucose Results, Start date: 04/24/16 22:30:00 CDT, Duration: 30 day, Stop irene e: 05/24/16 22:29:00 CDT Start Date: 04/24/16 Stop Date: 04/28/16 Status: Discontinued diphenhydrAMINE 25 mg, 1 tab, Route: PO, Drug form: TAB, ONCALL, Dosing Weight 50.54, kg, PRN Bl ood Transfusion, Start date: 04/24/16 23:22:00 CDT, Stop date: 05/24/16 23:21:00 CDT Start Date: 04/24/16 Stop Date: 04/28/16 Status: Discontinued ferrous sulfate PO, 0 Refill(s) Start Date: 04/25/16 Status: Ordered ferrous sulfate 325 mg oral enteric coated tablet 325 mg=1 tab, PO, BID, 0 Refill(s) Start Date: 04/25/16 Status: Ordered glucagon 1 mg, Route: IM, Drug form: PDR/INJ, PRN, Dosing Weight 50.54, kg, PRN Blood Glu cose Results, Start date: 04/24/16 22:30:00 CDT, Duration: 30 day, Stop date: 22:29:00 CDT Start Date: 04/24/16 Stop Date: 04/28/16 Status: Discontinued Humalog 30 unit, SUB-Q, TID-Before Meals, 0 Refill(s) Start Date: 04/25/16 Status: Ordered insulin aspart 3 unit, 0.03 mL, Route: SUB-Q, Drug form: SOLN, Bedtime, Dosing Weight 50.54, kg , PRN Blood Glucose Results, Start date: 04/24/16 22:30:00 CDT, Duration: 30 day , Stop date: 05/24/16 22:29:00 CDT Notes: Roll in palms of hands gently; Do not shake vigorously. (Same as: Yunior Gray)"single patient use only"WASTE: F/P - Black; E - Municipal Trash Bin Stable f or 28 days at room temperature.Expires in days from Date Start Date: 04/24/16 Stop Date: 04/28/16 Status: Discontinued insulin aspart 4 unit, 0.04 mL, Route: SUB-Q, Drug form: SOLN, Bedtime, Dosing Weight 50.54, kg , PRN Blood Glucose Results, Start date: 04/24/16 22:30:00 CDT, Duration: 30 day , Stop date: 05/24/16 22:29:00 CDT Notes: Roll in palms of hands gently; Do not shake vigorously. (Same as: Yunior Gray)"single patient use only"WASTE: F/P - Black; E - Municipal Trash Bin Stable f or 28 days at room temperature.Expires in days from Date Start Date: 04/24/16 Stop Date: 04/28/16 Status: Discontinued insulin aspart 2 unit, 0.02 mL, Route: SUB-Q, Drug form: SOLN, Bedtime, Dosing Weight 50.54, kg , PRN Blood Glucose Results, Start date: 04/24/16 22:30:00 CDT, Duration: 30 day , Stop date: 05/24/16 22:29:00 CDT Notes: Roll in palms of hands gently; Do not shake vigorously. (Same as: Yunior Gray)"single patient use only"WASTE: F/P - Black; E - Municipal Trash Bin Stable f or 28 days at room temperature.Expires in days from Date Start Date: 04/24/16 Stop Date: 04/28/16 Status: Discontinued insulin aspart 1 unit, 0.01 mL, Route: SUB-Q, Drug form: SOLN, Bedtime, Dosing Weight 50.54, kg , PRN Blood Glucose Results, Start date: 04/24/16 22:30:00 CDT, Duration: 30 day , Stop date: 05/24/16 22:29:00 CDT Notes: Roll in palms of hands gently; Do not shake vigorously. (Same as: Yunior Gray)"single patient use only"WASTE: F/P - Black; E - Municipal Trash Bin Stable f or 28 days at room temperature.Expires in days from Date Start Date: 04/24/16 Stop Date: 04/28/16 Status: Discontinued insulin aspart 10 unit, 0.1 mL, Route: SUB-Q, Drug form: SOLN, TID-Before Meals, Dosing Weight 50.54, kg, PRN Blood Glucose Results, Start date: 04/24/16 22:30:00 CDT, Duratio n: 30 day, Stop date: 05/24/16 22:29:00 CDT Notes: Roll in palms of hands gently; Do not shake vigorously. (Same as: Yunior Gray)"single patient use only"WASTE: F/P - Black; E - Municipal Trash Bin Stable f or 28 days at room temperature.Expires in days from Date Start Date: 04/24/16 Stop Date: 04/28/16 Status: Discontinued insulin aspart 6 unit, 0.06 mL, Route: SUB-Q, Drug form: SOLN, TID-Before Meals, Dosing Weight 50.54, kg, PRN Blood Glucose Results, Start date: 04/24/16 22:30:00 CDT, Duratio n: 30 day, Stop date: 05/24/16 22:29:00 CDT Notes: Roll in palms of hands gently; Do not shake vigorously. (Same as: Yunior Gray)"single patient use only"WASTE: F/P - Black; E - Municipal Trash Bin Stable f or 28 days at room temperature.Expires in days from Date Start Date: 04/24/16 Stop Date: 04/28/16 Status: Discontinued insulin aspart 8 unit, 0.08 mL, Route: SUB-Q, Drug form: SOLN, TID-Before Meals, Dosing Weight 50.54, kg, PRN Blood Glucose Results, Start date: 04/24/16 22:30:00 CDT, Duratio n: 30 day, Stop date: 05/24/16 22:29:00 CDT Notes: Roll in palms of hands gently; Do not shake vigorously. (Same as: Yunior Gray)"single patient use only"WASTE: F/P - Black; E - Municipal Trash Bin Stable f or 28 days at room temperature.Expires in days from Date Start Date: 04/24/16 Stop Date: 04/28/16 Status: Discontinued insulin aspart 2 unit, 0.02 mL, Route: SUB-Q, Drug form: SOLN, TID-Before Meals, Dosing Weight 50.54, kg, PRN Blood Glucose Results, Start date: 04/24/16 22:30:00 CDT, Duratio n: 30 day, Stop date: 05/24/16 22:29:00 CDT Notes: Roll in palms of hands gently; Do not shake vigorously. (Same as: Yunior Gray)"single patient use only"WASTE: F/P - Black; E - Municipal Trash Bin Stable f or 28 days at room temperature.Expires in days from Date Start Date: 04/24/16 Stop Date: 04/28/16 Status: Discontinued insulin aspart 4 unit, 0.04 mL, Route: SUB-Q, Drug form: SOLN, TID-Before Meals, Dosing Weight 50.54, kg, PRN Blood Glucose Results, Start date: 04/24/16 22:30:00 CDT, Duratio n: 30 day, Stop date: 05/24/16 22:29:00 CDT Notes: Roll in palms of hands gently; Do not shake vigorously. (Same as: Yunior Gray)"single patient use only"WASTE: F/P - Black; E - Municipal Trash Bin Stable f or 28 days at room temperature.Expires in days from Date Start Date: 04/24/16 Stop Date: 04/28/16 Status: Discontinued IVIG 10 % solution 50 gm, 500 mL, Route: IVPB, Drug form: SOLN, Q24H, Dosing Weight 50.54, kg, Star t date: 04/25/16 0:00:00 CDT, Duration: 2 doses or times, Stop date: 04/26/16 0: 00:00 CDT Notes: Begin at 0.03 grams/kg/hr=0.5 mg/kg/min. Double the rate every 30 minute s as tolerated. Maximum recommended infusion rate: 0.48 grams/kg/hr=8 mg/kg/minf or adults: [place] body weight of XX kg used for XX gm/kg per protocolWASTE: F/P - Red; E -Red Lot # Mfg: "blood product deriv ative" Start Date: 04/25/16 Stop Date: 04/26/16 Status: Completed K-Dur 20 40 mEq, 2 tab, Route: PO, Drug form: ERTAB, ONCE, Dosing Weight 50.54, kg, Start date: 04/25/16 15:19:00 CDT, Stop date: 04/25/16 15:19:00 CDT Notes: (Same as: K-Dur 20)"Do Not Crush" With food and full glass of water Start Date: 04/25/16 Stop Date: 04/25/16 Status: Completed Levemir 10 unit, SUB-Q, Before Breakfast, 0 Refill(s) Start Date: 04/25/16 Status: Ordered Levemir 60 unit, SUB-Q, Bedtime, 0 Refill(s) Start Date: 04/25/16 Status: Ordered Levemir 30 unit, 0.3 mL, Route: SUB-Q, Drug form: INJ, Bedtime, Dosing Weight 50.54, kg, Start date: 04/25/16 21:00:00 CDT, Duration: 30 day, Stop date: 05/24/16 21:00: 00 CDT Notes: Same as [place] not hold insulin without contacting prescriberWASTE: F/ P - Black; E - Municipal Trash Bin "single patient use only" Start Date: 04/25/16 Stop Date: 04/28/16 Status: Discontinued Lipitor 80 mg, 2 tab, Route: PO, Drug form: TAB, Bedtime, Start date: 04/24/16 23:00:00 CDT, Duration: 30 day, Stop date: 05/23/16 21:00:00 CDT Notes: (Same as: Lipitor) Start Date: 04/24/16 Stop Date: 04/28/16 Status: Discontinued metoclopramide 5 mg oral tablet 5 mg=1 tab, PO, Bedtime, 0 Refill(s) Start Date: 04/25/16 Status: Ordered MiraLax 17 gm, 1 pkt, Route: PO, Drug form: PWDR, Daily, Dosing Weight 50.54, kg, PRN Co nstipation, Start date: 04/25/16 10:14:00 CDT, Duration: 30 day, Stop date: 04/29 05/13 10:13:00 CDT Notes: Dissolve in 8 oz of water or juice.(Same as: Miralax) Start Date: 04/25/16 Stop Date: 04/28/16 Status: Discontinued Nephro-Mc 1 tab, PO, Daily, 0 Refill(s) Start Date: 04/25/16 Status: Ordered Presho 5/325 oral tablet 2 tab, Route: PO, Drug Form: TAB, Dosing Weight 50.54, kg, Q4H, PRN Pain Score 4 -6, Start date: 04/25/16 1:48:00 CDT, Duration: 30 day, Stop date: 05/25/16 1:47 :00 CDT Notes: (Same as: Presho 325/5) Do not exceed 4gm/day of acetaminophen. Start Date: 04/25/16 Stop Date: 04/28/16 Status: Discontinued Presho 5/325 oral tablet 1 tab, Route: PO, Drug Form: TAB, Dosing Weight 50.54, kg, Q4H, PRN Other -See C omment, Start date: 04/25/16 10:14:00 CDT, Duration: 30 day, Stop date: 05/25/16 10:13:00 CDT Notes: (Same as: Presho 325/5) Do not exceed 4gm/day of acetaminophen. Start Date: 04/25/16 Stop Date: 04/28/16 Status: Discontinued Presho 5/325 oral tablet 2 tab, Route: PO, Drug Form: TAB, Dosing Weight 50.54, kg, Q4H, PRN Pain Score 4 -6, Start date: 04/25/16 1:45:00 CDT, Duration: 30 day, Stop date: 05/25/16 1:44 :00 CDT Start Date: 04/25/16 Stop Date: 04/25/16 Status: Discontinued NovoLOG 25 unit, 0.25 mL, Route: SUB-Q, Drug form: SOLN, ONCE, Dosing Weight 50.54, kg, Start date: 04/25/16 17:13:00 CDT, Stop date: 04/25/16 17:13:00 CDT Notes: Roll in palms of hands gently; Do not shake vigorously. (Same as: Yunior Gray)"single patient use only"WASTE: F/P - Black; E - Municipal Trash Bin Stable f or 28 days at room temperature.Expires in days from Date Start Date: 04/25/16 Stop Date: 04/25/16 Status: Completed NovoLOG 10 unit, 0.1 mL, Route: SUB-Q, Drug form: SOLN, TID-Before Meals, Dosing Weight 50.54, kg, Start date: 04/25/16 16:30:00 CDT, Duration: 30 day, Stop date: 05/25 11:30:00 CDT Notes: Roll in palms of hands gently; Do not shake vigorously. (Same as: Yunior Gray)"single patient use only"WASTE: F/P - Black; E - Municipal Trash Bin Stable f or 28 days at room temperature.Expires in days from Date Start Date: 04/25/16 Stop Date: 04/28/16 Status: Discontinued NovoLOG FlexPen 12 unit, 0.12 mL, Route: SUB-Q, Drug form: SOLN, ONCE, Dosing Weight 50.54, kg, Start date: 04/24/16 22:28:00 CDT, Stop date: 04/24/16 22:28:00 CDT Notes: Roll in palms of hands gently; Do not shake vigorously. (Same as: NovoLO G)"single patient use only"WASTE: F/P - Black; E - Municipal Trash Bin Stable f or 28 days at room temperature.Expires in days from Date Start Date: 04/24/16 Stop Date: 04/24/16 Status: Completed Pepcid 20 mg oral tablet 20 mg=1 tab, PO, BID, # 60 tab, 0 Refill(s), Pharmacy: [id number] Start Date: 04/28/16 Status: Ordered predniSONE 10 mg oral tablet 30 mg=3 tab, PO, Daily, # 90 tab, 0 Refill(s), Pharmacy: [id number] Start Date: 04/28/16 Status: Ordered Restoril 15 mg, Route: PO, Drug form: CAP, Bedtime, Dosing Weight 50.54, kg, PRN Sleep, S tart date: 04/25/16 10:15:00 CDT, Duration: 30 day, Stop date: 05/25/16 10:14:00 CDT Start Date: 04/25/16 Stop Date: 04/25/16 Status: Deleted Restoril 15 mg, 1 cap, Route: PO, Drug form: CAP, Bedtime, Dosing Weight 50.54, kg, PRN S leep, Start date: 04/25/16 1:45:00 CDT, Duration: 30 day, Stop date: 05/25/16 1: 44:00 CDT Notes: (Same As: Restoril) Start Date: 04/25/16 Stop Date: 04/28/16 Status: Discontinued Robaxin 500 mg, 1 tab, Route: PO, Drug form: TAB, Q8H, Dosing Weight 50.54, kg, PRN Cram ps, Start date: 04/25/16 1:47:00 CDT, Duration: 30 day, Stop date: 05/25/16 1:46 :00 CDT Notes: (Same as:Robaxin) Start Date: 04/25/16 Stop Date: 04/28/16 Status: Discontinued Robaxin 500 mg, Route: PO, Q8H, Dosing Weight 50.54, kg, Start date: 04/25/16 8:00:00 CD T, Duration: 30 day, Stop date: 05/25/16 0:00:00 CDT Start Date: 04/25/16 Stop Date: 04/25/16 Status: Canceled Tylenol 650 mg, 2 tab, Route: PO, Drug form: TAB, Q6H, Dosing Weight 50.54, kg, PRN Head ache 1-5, Start date: 04/25/16 1:49:00 CDT, Duration: 30 day, Stop date: 6 1:48:00 CDT Notes: Do not exceed 4 gm/day. (Same as: Tylenol) Start Date: 04/25/16 Stop Date: 04/28/16 Status: Discontinued Tylenol 650 mg, 2 tab, Route: PO, Drug form: TAB, ONCALL, Dosing Weight 50.54, kg, PRN B lood Transfusion, Start date: 04/24/16 23:21:00 CDT, Duration: 30 day, Stop date : 05/24/16 23:20:00 CDT Notes: Do not exceed 4 gm/day. (Same as: Tylenol) Start Date: 04/24/16 Stop Date: 04/25/16 Status: Discontinued Tylenol 650 mg, 20.3 mL, Route: PO, Drug form: LIQ, Q6H, Dosing Weight 50.54, kg, PRN Ot her -See Comment, Start date: 04/25/16 10:15:00 CDT, Duration: 30 day, Stop date : 05/25/16 10:14:00 CDT, fever, pain, headache Notes: Max vndiwxsflhooa=0507ma/day (4 gm/day). (Same as: Tylenol) Start Date: 04/25/16 Stop Date: 04/28/16 Status: Discontinued Zofran 4 mg, 2 mL, Route: IV, Drug form: INJ, Q4H, Dosing Weight 50.54, kg, PRN as need ed for nausea/vomiting, Start date: 04/25/16 1:48:00 CDT, Duration: 30 day, Stop date: 05/25/16 1:47:00 CDT Notes: (Same as: Zofran) MEDICATION WASTE Product Size: 4 mgProduct Was yousuf: ___ mg Start Date: 04/25/16 Stop Date: 04/28/16 Status: Discontinued Zofran 4 mg, 2 mL, Route: IVP, Drug form: INJ, Q4H, Dosing Weight 50.54, kg, PRN Nausea , Start date: 04/25/16 10:15:00 CDT, Duration: 30 day, Stop date: 05/25/16 10:14 :00 CDT Notes: (Same as: Zofran) MEDICATION WASTE Product Size: 4 mgProduct Was yousuf: ___ mg Start Date: 04/25/16 Stop Date: 04/28/16 Status: Discontinued Zofran 4 mg, Route: IV, Q4H, Dosing Weight 50.54, kg, Start date: 04/25/16 4:00:00 CDT, Duration: 30 day, Stop date: 05/25/16 0:00:00 CDT Start Date: 04/25/16 Stop Date: 04/25/16 Status: Canceled Results BLOOD BANK RESULTS 1 2 3 Most recent to oldest [Reference Range]: O POS *Unknown* (04/24/16 11:54 PM) ABO/Rh Negative (04/24/16 11:54 PM) Antibody Scrn Product available 1 (04/24/16 10:50 PM) Platelet product 1Result Comment: 04/25/2016 01:19 [id number] notified kamala at 04/25/2016 01:19 lgb ELECTROLYTES 1 2 3 Most recent to oldest [Reference Range]: 139 mEq/L (04/28/16 5:10 AM) 135 mEq/L (04/27/16 4:39 AM) 131 mEq/L *LOW* (04/26/16 4:47 AM) Sodium Lvl [135-145 mEq/L] 3.7 mEq/L (04/28/16 5:10 AM) 4.2 mEq/L (04/27/16 4:39 AM) 3.7 mEq/L (04/26/16 4:47 AM) Potassium Lvl [3.5-5.1 mEq/L] 102 mEq/L (04/28/16 5:10 AM) 98 mEq/L (04/27/16 4:39 AM) 97 mEq/L (04/26/16 4:47 AM) Chloride Lvl [95-109 mEq/L] 28 mEq/L (04/28/16 5:10 AM) 29 mEq/L (04/27/16 4:39 AM) 29 mEq/L (04/26/16 4:47 AM) CO2 [24-32 mEq/L] 12.7 mEq/L (04/28/16 5:10 AM) 12.2 mEq/L (04/27/16 4:39 AM) 8.7 mEq/L *LOW* (04/26/16 4:47 AM) AGAP [10.0-20.0 mEq/L] CHEM PANEL 1 2 3 Most recent to oldest [Reference Range]: 1.10 mg/dL (04/28/16 5:10 AM) 1.23 mg/dL (04/27/16 4:39 AM) 1.44 mg/dL *HI* (04/26/16 4:47 AM) Creatinine Lvl [0.50-1.40 mg/dL] 52 mL/min/1.73m2 1 *NA* (04/28/16 5:10 AM) 46 mL/min/1.73m2 2 *NA* (04/27/16 4:39 AM) 38 mL/min/1.73m2 3 *NA* (04/26/16 4:47 AM) eGFR 21 mg/dL (04/28/16 5:10 AM) 20 mg/dL (04/27/16 4:39 AM) 20 mg/dL (04/26/16 4:47 AM) BUN [7-22 mg/dL] 16 (04/27/16 4:39 AM) 14 (04/26/16 4:47 AM) 20 (04/25/16 4:22 AM) B/C Ratio [6-25] 206 mg/dL *HI* (04/28/16 5:10 AM) 273 mg/dL *HI* (04/27/16 4:39 AM) 325 mg/dL *HI* (04/26/16 4:47 AM) Glucose Lvl [70-99 mg/dL] 8.1 g/dL (04/27/16 4:39 AM) 8.6 g/dL *HI* (04/26/16 4:47 AM) 6.2 g/dL *LOW* (04/25/16 4:22 AM) Total Protein [6.4-8.4 g/dL] 2.5 g/dL *LOW* (04/27/16 4:39 AM) 2.6 g/dL *LOW* (04/26/16 4:47 AM) 3.1 g/dL *LOW* (04/25/16 4:22 AM) Albumin Lvl [3.5-5.0 g/dL] 5.6 g/dL *HI* (04/27/16 4:39 AM) 6.0 g/dL *HI* (04/26/16 4:47 AM) 3.1 g/dL (04/25/16 4:22 AM) Globulin [2.0-4.0 g/dL] 0.4 *LOW* (04/27/16 4:39 AM) 0.4 *LOW* (04/26/16 4:47 AM) 1.0 (04/25/16 4:22 AM) A/G Ratio [0.7-1.6] 8.2 mg/dL *LOW* (04/28/16 5:10 AM) 8.7 mg/dL (04/27/16 4:39 AM) 8.3 mg/dL *LOW* (04/26/16 4:47 AM) Calcium Lvl [8.5-10.5 mg/dL] 17 unit/L (04/27/16 4:39 AM) 17 unit/L (04/26/16 4:47 AM) 19 unit/L (04/25/16 4:22 AM) ALT [0-65 unit/L] 15 unit/L (04/27/16 4:39 AM) 14 unit/L (04/26/16 4:47 AM) 10 unit/L (04/25/16 4:22 AM) AST [0-37 unit/L] 93 unit/L (04/27/16 4:39 AM) 78 unit/L (04/26/16 4:47 AM) 71 unit/L (04/25/16 4:22 AM) Alk Phos [39-136 unit/L] 0.8 mg/dL (04/27/16 4:39 AM) 0.3 mg/dL (04/26/16 4:47 AM) 1.0 mg/dL (04/25/16 4:22 AM) Bili Total [0.2-1.3 mg/dL] 1Result Comment: [...] be mul tiplied by the estimated BMI. SPECIAL CHEMISTRY 1 2 3 Most recent to oldest [Reference Range]: >16.0 % (04/26/16 4:47 AM) Hgb A1C [<=5.6 %] HEMATOLOGY 1 2 3 Most recent to oldest [Reference Range]: 5.0 K/CMM (04/28/16 5:10 AM) 4.3 K/CMM (04/27/16 4:39 AM) 4.3 K/CMM (04/26/16 4:47 AM) WBC [3.7-10.4 K/CMM] 3.79 M/CMM *LOW* (04/28/16 5:10 AM) 3.85 M/CMM *LOW* (04/27/16 4:39 AM) 3.53 M/CMM *LOW* (04/26/16 4:47 AM) RBC [4.20-5.40 M/CMM] 11.2 g/dL *LOW* (04/28/16 5:10 AM) 11.4 g/dL *LOW* (04/27/16 4:39 AM) 10.4 g/dL *LOW* (04/26/16 4:47 AM) Hgb [12.0-16.0 g/dL] 32.6 % *LOW* (04/28/16 5:10 AM) 33.3 % *LOW* (04/27/16 4:39 AM) 30.3 % *LOW* (04/26/16 4:47 AM) Hct [36.0-48.0 %] 86.1 fL (04/28/16 5:10 AM) 86.6 fL (04/27/16 4:39 AM) 85.9 fL (04/26/16 4:47 AM) MCV [80.0-98.0 fL] 29.5 pg (04/28/16 5:10 AM) 29.5 pg (04/27/16 4:39 AM) 29.4 pg (04/26/16 4:47 AM) MCH [27.0-31.0 pg] 34.2 g/dL (04/28/16 5:10 AM) 34.1 g/dL (04/27/16 4:39 AM) 34.3 g/dL (04/26/16 4:47 AM) MCHC [32.0-36.0 g/dL] 14.5 % (04/28/16 5:10 AM) 13.7 % (04/27/16 4:39 AM) 14.1 % (04/26/16 4:47 AM) RDW [11.5-14.5 %] 123 K/CMM *LOW* (04/28/16 5:10 AM) 113 K/CMM *LOW* (04/27/16 4:39 AM) 109 K/CMM *LOW* (04/26/16 4:47 AM) Platelet [133-450 K/CMM] 9.6 fL (04/28/16 5:10 AM) 9.6 fL (04/27/16 4:39 AM) 9.4 fL (04/26/16 4:47 AM) MPV [7.4-10.4 fL] 47.4 % (04/28/16 5:10 AM) 56.0 % (04/27/16 4:39 AM) 61.4 % (04/26/16 4:47 AM) Segs [45.0-75.0 %] 33.0 % (04/28/16 5:10 AM) 27.2 % (04/27/16 4:39 AM) 22.8 % (04/26/16 4:47 AM) Lymphocytes [20.0-40.0 %] 14.5 % *HI* (04/28/16 5:10 AM) 12.2 % *HI* (04/27/16 4:39 AM) 10.2 % (04/26/16 4:47 AM) Monocytes [2.0-12.0 %] 4.5 % *HI* (04/28/16 5:10 AM) 4.2 % *HI* (04/27/16 4:39 AM) 5.2 % *HI* (04/26/16 4:47 AM) Eosinophils [0.0-4.0 %] 0.6 % (04/28/16 5:10 AM) 0.4 % (04/27/16 4:39 AM) 0.4 % (04/26/16 4:47 AM) Basophils [0.0-1.0 %] 2.4 K/CMM (04/28/16 5:10 AM) 2.4 K/CMM (04/27/16 4:39 AM) 2.7 K/CMM (04/26/16 4:47 AM) Segs-Bands # [1.5-8.1 K/CMM] 1.7 K/CMM (04/28/16 5:10 AM) 1.2 K/CMM (04/27/16 4:39 AM) 1.0 K/CMM (04/26/16 4:47 AM) Lymphocytes # [1.0-5.5 K/CMM] 0.7 K/CMM (04/28/16 5:10 AM) 0.5 K/CMM (04/27/16 4:39 AM) 0.4 K/CMM (04/26/16 4:47 AM) Monocytes # [0.0-0.8 K/CMM] 0.2 K/CMM (04/28/16 5:10 AM) 0.2 K/CMM (04/27/16 4:39 AM) 0.2 K/CMM (04/26/16 4:47 AM) Eosinophils # [0.0-0.5 K/CMM] Immunizations No data available for this section [...] Plan Extracted from: Title: Clinical Document Author: Pietro Rodriguez DO Date: 04/28/16 Progress Daily [facility] Completed: Apr, 14:24 by Pietro Rodriguez DO RM: 228 - 1P, SE [id number] SALAZAR [id number] (: 1950) F Attending: Khoi Brown MDPhone: Service: Internal Medicine Reason for Admission: THROMBOCYTOPENIA Working DRG: Coagulation disorders Code status: None Specified=FULL CODECurrent diet: Isolation: None Documented Allergies: Zocor SUBJECTIVE Patient seen and examined. Events noted overnight. Labs/Images reviewed doing ok, no other issues, had biopsy done today OBJECTIVE Labs (Last four charted values) WBC 5.0(APR 28)4.3(APR 27)4.3(APR 26)7.3(APR 25) Hgb L 11.2(APR 28)L 11.4(APR 27)L 10.4(APR 26)L 10.7(APR 25) Hct L 32.6(APR 28)L 33.3(APR 27)L 30.3(APR 26)L 30.4(APR 25) Plt L 123(APR 28)L 113(APR 27)L 109(APR 26)L 112(APR 25) Na 139(APR 28)135(APR 27)L 131(APR 26)L 133(APR 25) K 3.7(APR 28)4.2(APR 27)3.7(APR 26)L 3.2(APR 25) CO2 28(APR 28)29(APR 27)29(APR 26)28(APR 25) Cl 102(APR 28)98(APR 27)97(APR 26)L 94(APR 25) Cr 1.10(APR 28)1.23(APR 27)H 1.44(APR 26)1.23(APR 25) BUN 21(APR 28)20(APR 27)20(APR 26)H 24(APR 25) Glucose Random H 206(APR 28)H 273(APR 27)H 325(APR 26)H 235(APR 25) Ca L 8.2(APR 28)8.7(APR 27)L 8.3(APR 26)L 8.3(APR 25) ASSESSMENT & EXAM Gen: NAD, Alert, Awake HEENT: NC/AT, PERRLA, oral area clear and moist Neck: No LAD, No JVD, trachea midline Chest: CTAB, no c/w/r CV: RRR, S1, S2 GI: +BS, S, NT, ND, No organomegaly Ext: no c/c/e Neuro: AOx3, no gross deficits noted Skin: No notable rashes PLAN & TREATMENT biopsy done - will f/u with oncology doing better dc with prednisone 30mg daily with PPI or H2 galen DIAGNOSES & PROBLEMS 1. Thrombocytopenia. 2. Lung nodule. 3. HTN. 4. DM. Ready for Discharge (Yes/No)? Camacho still necessary (Yes/No): Line still necessary (Yes/No): 24hr Labs 04/28 1100 Glucose IBN305 H 04/28 0745 Glucose NRQ089 H 04/28 0510 Glucose Eyo743 H BUN21 Creatinine Lvl1.10 Sodium Cpo321 Potassium Lvl3.7 Chloride Sid547 CO228 AGAP12.7 Calcium Lvl8.2 L eGFR52 WBC5.0 RBC3.79 L Hgb11.2 L Hct32.6 L MCV86.1 MCH29.5 MCHC34.2 RDW14.5 Makzcwji092 L MPV9.6 Segs47.4 Pousxoync39.5 H Mmsslullicy74.0 Eosinophils4.5 H Basophils0.6 Segs-Bands #2.4 Lymphocytes #1.7 Monocytes #0.7 Eosinophils #0.2 04/28 0354 Glucose XNG887 H 04/27 2111 Glucose ICW315 H 04/27 1553 Glucose BWC915 H VitalsTmp(F)[id number] 04/28 11:29----69617/61-------- 04/28 11:16----73880/60-------- 04/28 11:01----70 04/28 10:[id number]/842441--- 04/28 07:4497.621667/239388--- 24 Hr Tmax: 98.4F (36.89c) at 04/28 00:06Vital Signs are the last 5 in the past 48 hours. DateWt(kg)Wt(lb)Ht(cm)Ht(in)Method 04/24 (initial) 50.54 111.19Measured 49.86 59.00Stated I&ORecordInOutBal 04/124hr Tot 0 0 0 03/3124hr Tot 0 0 0 Medications (28) Active Scheduled Meds (5): 04/25/16 aspirin (aspirin 81 mg tablet, chewable) 40.5 mg PO Daily 04/24/16 atorvastatin (Lipitor) 80 mg PO Bedtime 04/24/16 carvedilol 25 mg PO BID 04/25/16 insulin aspart (NovoLOG) 10 unit SUB-Q TID-Before Meals 04/25/16 insulin detemir (Levemir) 30 unit SUB-Q Bedtime Unscheduled Meds: None PRN Meds (23): 04/24/16 Dextrose 50% in Water IV (Dextrose 50% Syringe) 12.5 gm IVP PRN 04/24/16 Dextrose 50% in Water IV (Dextrose 50% Syringe) 25 gm IVP PRN 04/25/16 acetaminophen-hydrocodone (Presho 5/325 oral tablet) 2 tab PO Q4H 04/25/16 acetaminophen-hydrocodone (Presho 5/325 oral tablet) 1 tab PO Q4H 04/25/16 acetaminophen (Tylenol) 650 mg PO Q6H 04/25/16 acetaminophen (Tylenol) 650 mg PO Q6H 04/25/16 cloNIDine (cloNIDine 0.1 mg oral tablet) 0.1 mg PO Q6H 04/24/16 diphenhydrAMINE 25 mg PO ONCALL 04/24/16 glucagon 1 mg IM PRN 04/24/16 insulin aspart 2 unit SUB-Q TID-Before Meals 04/24/16 insulin aspart 4 unit SUB-Q TID-Before Meals 04/24/16 insulin aspart 6 unit SUB-Q TID-Before Meals 04/24/16 insulin aspart 8 unit SUB-Q TID-Before Meals 04/24/16 insulin aspart 10 unit SUB-Q TID-Before Meals 04/24/16 insulin aspart 1 unit SUB-Q Bedtime 04/24/16 insulin aspart 2 unit SUB-Q Bedtime 04/24/16 insulin aspart 3 unit SUB-Q Bedtime 04/24/16 insulin aspart 4 unit SUB-Q Bedtime 04/25/16 methocarbamol (Robaxin) 500 mg PO Q8H 04/25/16 ondansetron (Zofran) 4 mg IV Q4H 04/25/16 ondansetron (Zofran) 4 mg IVP Q4H 04/25/16 polyethylene glycol 3350 (MiraLax) 17 gm PO Daily 04/25/16 temazepam (Restoril) 15 mg PO Bedtime One Time Meds: None Continuous Infusions: None Extracted from: Title: IR pre lung biopsy Author: Shaka Healy MD Date: 04/28/16 evaluation HPI: 65 F with a left lung nodule seen on CT from 03/26/16. She was referred for biopsy of this nodule. PMH/PSH: Arthritis Cholecystitis Cataract surgery Hysterectomy Appendectomy Tonsillectomy Medications: Scheduled Meds (5):aspirin (aspirin 81 mg tablet, chewable), atorvastatin (Lipitor), carvedilol, insulin aspart (NovoLOG), insulin detemir (Levemir) Unscheduled Meds: None PRN Meds (23):Dextrose 50% in Water IV (Dextrose 50% Syringe), Dextrose 50% in Water IV (Dextrose 50% Syringe), acetaminophen-hydrocodone (Presho 5/325 oral tablet), acetaminophen-hydrocodone (Presho 5/325 oral tablet), acetaminophen (Tylenol), acetaminophen (Tylenol), cloNIDine (cloNIDine 0.1 mg oral tablet), diphenhydrAMINE, glucagon, insulin aspart, insulin aspart, insulin aspart, insulin aspart, insulin aspart, insulin aspart, insulin aspart, insulin aspart, insulin aspart, methocarbamol (Robaxin), ondansetron (Zofran), ondansetron (Zofran), polyethylene glycol 3350 (MiraLax), temazepam (Restoril) One Time Meds: None Continuous Infusions: None Allergies: Zocor VitalsTmp(F)[id number] 04/28 07:4497.160140/498423--- 04/28 03:5097.256212/292551--- 04/28 00:0698.018847/165364--- 04/27 19:319030305/448102--- 04/27 14:5198.981836/777574--- 24 Hr Tmax: 98.4F (36.89c) at 04/28 00:06Vital Signs are the last 5 in the past 48 hours. Physical Exam: General: No acute distress, awake/alert/oriented x 3 Pulmonary: Lungs clear bilaterally, no rales or wheezes Cardiac: Regular rate and rhythm, no murmur Abdomen: Soft, nontender, nondistended, normal bowel sounds, no rebound/guarding Extremities: Femoral pulses intact bilaterally, no deformity The avavailable relevant labs and imaging were reviewed. The Patient's ASA classification is 2. The Mallampati score is 2. The patient is an appropriate candidate for moderate sedation. The risks of the procedure, including pain, bleeding, infection, damage to adjacent structures, need for additional procedures, and any other procedure- specific risks (chest tube, pneumothorax, unlikely ) were discussed with the patient and documented in the signed consent form. The patient understands and wishes to undergo the procedure. Will proceed with left lung biopsy.
--- OUTSIDE RECORDS SUMMARY | 2018-07-24 14:45 | XMS REPORT | Summary of Care ---
Author Author [facility] Organization [facility] Address Unknown Phone Unavailable Encounter GABRIELLA Ferrara(CAYLA) [id number] Date(s): 06/03/16 - 06/03/16 [facility] [address] [place] [address]- [phone] Discharge Disposition: Home or Self Care Attending Physician: Genet Schmidt MD Referring Physician: Genet Schmidt MD Vital Signs Most recent to 1 oldest [Reference Range]: Height 149.86 cm (06/03/16 12:51 PM) Weight 57.273 kg (06/03/16 12:51 PM) Body Mass Index 25.5 m2 (06/03/16 12:51 PM) Problem List Condition Effective Dates Status Health Status Informant Arthritis(Confirmed) Resolved Cholecystitis(Confir Resolved med) DM (diabetes Active mellitus), type 2(Confirmed) HTN Active (hypertension)(Confi rmed) Hyperlipidemia(Confi Active rmed) Allergies, Adverse Reactions, Alerts Substance Reaction Severity Status simvastatin Active Medications No Known Medications Results HEMATOLOGY Most recent to 1 oldest [Reference Range]: WBC [3.7-10.4 K/CMM] 10.5 K/CMM *HI* (06/03/16 1:03 PM) RBC [4.20-5.40 3.43 M/CMM M/CMM] *LOW* (06/03/16 1:03 PM) Hgb [12.0-16.0 g/dL] 10.6 g/dL *LOW* (06/03/16 1:03 PM) Hct [36.0-48.0 %] 31.4 % *LOW* (06/03/16 1:03 PM) MCV [80.0-98.0 fL] 91.6 fL (06/03/16 1:03 PM) MCH [27.0-31.0 pg] 30.9 pg (06/03/16 1:03 PM) MCHC [32.0-36.0 33.7 g/dL g/dL] (06/03/16 1:03 PM) RDW [11.5-14.5 %] 16.2 % *HI* (06/03/16 1:03 PM) Platelet [133-450 61 K/CMM K/CMM] *LOW* (06/03/16 1:03 PM) MPV [7.4-10.4 fL] 11.1 fL *HI* (06/03/16 1:03 PM) Segs [45.0-75.0 %] 66.0 % (06/03/16 1:03 PM) Bands [0.0-11.0 %] 1.0 % (06/03/16 1:03 PM) Lymphocytes 29.0 % [20.0-40.0 %] (06/03/16 1:03 PM) Atypical Lymphs 0.0 % [<=0.0 %] (06/03/16 1:03 PM) Monocytes [2.0-12.0 3.0 % %] (06/03/16 1:03 PM) Eosinophils [0.0-4.0 1.0 % %] (06/03/16 1:03 PM) Segs-Bands # 7.0 K/CMM [1.5-8.1 K/CMM] (06/03/16 1:03 PM) Lymphocytes # 3.0 K/CMM [1.0-5.5 K/CMM] (06/03/16 1:03 PM) Monocytes # [0.0-0.8 0.3 K/CMM K/CMM] (06/03/16 1:03 PM) Eosinophils # 0.1 K/CMM [0.0-0.5 K/CMM] (06/03/16 1:03 PM) Tot Cell Ct 100 *NA* (06/03/16 1:03 PM) RBC Morph Normal (06/03/16 1:03 PM) Plt Morph Normal (06/03/16 1:03 PM) Retic Auto [0.5-1.5 3.1 % %] *HI* (06/03/16 1:03 PM) Immunizations No data available for this [...] 3retired Assessment and Plan Extracted from: Title: IR bone marrow biopsy pre Author: Shaka Healy MD Date: 06/03/16 procedure evaluation HPI: 65 y/o F with thrombocytopenia who presents for bone marrow biopsy. PMH/PSH: Arthritis Cholecystitis Cataract surgery Hysterectomy Appendectomy Tonsillectomy Medications: Scheduled Meds: None Unscheduled Meds: None PRN Meds: None One Time Meds: None Continuous Infusions: None Allergies: simvastatin VitalsTmp(F)[id number] (no data in last 48 hours) 24 Hr Tmax: No Data AvailableVital Signs are the last 5 in the [...] procedures, and any other procedure- specific risks were discussed with the patient and documented in the signed consent form. The patient understands and wishes to undergo the procedure. Will proceed with bone marrow biopsy.
--- OUTSIDE RECORDS SUMMARY | 2018-07-24 14:46 | XMS REPORT ---
Author Author [facility] Address Unknown Phone Unavailable Care Team Providers Care Dock Associate Name Role Phone EITAN CROOK Unavailable Unavailable Payers Payer Name Policy Type Policy Number Effective Date Expiration Date Problems This patient has no known problems. Allergies, Adverse Reactions, Alerts Allergy Name Allergy Type Status Severity Reaction(s) Onset Date Inactive Date Treating Clinician Comments simvastatin DA Active MO 2014-05-03 00:00:00 Medications This patient has no known medications. Results Test Description Test Time Test Comments Text Results Atomic Results Result Comments CTA BRAIN [facility] [address] [address] Patient Name: REAL CARR MR #: [id number] : 1950 Age/Sex: 67/F Req #: [id number] Adm Physician: EITAN CROOK MD Ordered by: EITAN CROOK MD Report #: [id number] Location: [facility] Room/Bed: [address] [address] Procedure: [id number] CT/CTA BRAIN Exam Date: 11/16/17 Exam Time: 1230 REPORT STATUS: Signed History:Carotid disease, Comparison studies:None Technique: Axial images were obtained from the thoracic inlet. Coronal and sagittal images reconstructed from the axial data. Intravenous contrast: 100 cc of Omnipaque 300. Findings: Percentage of stenosis will be based on the NASCET criteria Aortic arch and major vessels: Patent. Nonstenotic atherosclerotic calcifications. Common origin of the brachiocephalic trunk and left common carotid artery. Common carotid arteries: Patent. No abnormalities. Right internal carotid artery: Patent. Calcified and noncalcified plaque at the bulb results in 40-65% stenosis. Nonstenotic atherosclerotic calcifications at the carotid siphons Left internal carotid artery: Patent. Atherosclerotic calcifications of the bulb and proxim al internal carotid artery cervical segment results in less than 20% stenosis. Retropharyngeal course of the cervical segment. Atherosclerotic calcifications of the carotid siphons with less than 10% stenosis. Right vertebral artery: Patent. No abnormalities. Left vertebral artery: Patent. No abnormalities. Basilar artery: Patent. No abnormalities. Posterior cerebral arteries: Patent. No abnormalities. Anatomical variants: Acom: Patent . Pcoms: Not visualized on the lateral right. Hypoplastic left. Vertebral arteries: Col-dominant IMPRESSION: Cervical CTA: 1. Calcified and noncalcified plaque results in moderate stenosis of the right carotid bulb. 2. No other significant stenosis of the neck arteries Intracranial CTA: 1. Atherosclerotic calcifications of the carotid siphons without significant stenosis. The remaining intracranial vasculature is unremarkable. Signed by: DR Reji Maria M.D. on 2017 10:07 AM Dictated By: REJI WEBB MD 1007 Transcribed By: MATTHEW on 11/17/17 1007 COPY TO: EITAN CROOK MD CTA NECK [place] [address] Patient Name: REAL CARR MR #: [id number] : 1950 Age/Sex: 67/F Req #: [id number] Adm Physician: EITAN CROOK MD Ordered by: EITAN CROOK MD Report #: [id number] Location: [facility] Room/Bed: [address] [address] Procedure: [id number] CT/CTA NECK Exam Date: 11/16/17 Exam Time: 1230 REPORT STATUS: Signed History:Carotid disease, Comparison studies:None Technique: Axial images were obtained from the thoracic inlet. Coronal and sagittal images reconstructed from the axial data. Intravenous contrast: 100 cc of Omnipaque 300. Findings: Percentage of stenosis will be based on the NASCET criteria Aortic arch and major vessels: Patent. Nonstenotic atherosclerotic calcifications. Common origin of the brachiocephalic trunk and left common carotid artery. Common carotid arteries: Patent. No abnormalities. Right internal carotid artery: Patent. Calcified and noncalcified plaque at the bulb results in 40-65% stenosis. Nonstenotic atherosclerotic calcifications at the carotid siphons Left internal carotid artery: Patent. Atherosclerotic calcifications of the bulb and proxima l internal carotid artery cervical segment results in less than 20% stenosis. Retropharyngeal course of the cervical segment. Atherosclerotic calcifications of the carotid siphons with less than 10% stenosis. Right vertebral artery: Patent. No abnormalities. Left vertebral artery: Patent. No abnormalities. Basilar artery: Patent. No abnormalities. Posterior cerebral arteries: Patent. No abnormalities. Anatomical variants: Acom: Patent . Pcoms: Not visualized on the lateral right. Hypoplastic left. Vertebral arteries: Col-dominant IMPRESSION: Cervical CTA: 1. Calcified and noncalcified plaque results in moderate stenosis of the right carotid bulb. 2. No other significant stenosis of the neck arteries Intracranial CTA: 1. Atherosclerotic calcifications of the carotid siphons without significant stenosis. The remaining intracranial vasculature is unremarkable. Signed by: DR Reji Maria M.D. on 2017 10:07 AM Dictated By: REJI WEBB MD 1007 Transcribed By: MATTHEW on 11/17/17 1007 COPY TO: EITAN CROOK MD CT BRAIN [place] [address] Patient Name: REAL CARR MR #: [id number] : 1950 Age/Sex: 66/F Req #: [id number] Adm Physician: EITAN CROOK MD Ordered by: WM RIBEIRO FLASH OVEN OPERATOR Report #: [id number] Location: [facility] Room/Bed: [address] [address] Procedure: [id number] CT/CT BRAIN WO Exam Date: Exam Time: REPORT STATUS: Signed Exam: Head CT without contrast History: Syncope and fall, rule out bleed and mass. Comparison studies: None Technique: Axial images were obtained from the skull base to the vertex. Coronal and sagittal images reconstructed from the axial data. Intravenous contrast: None Findings: Scalp: No abnormalities. Bones: No fractures, blastic or lytic lesions. Brain sulci: Appropriate for age. Ventricles: Normal in size and configuration. No hydrocephalus. Extra-axial spaces: No masses, no fluid collection. Parenchyma: No abnormal densities. No masses, hemorrhage, acute or chronic vascular insults. Sellar/suprasellar region: No abnormalities. Craniocervical junction: Patent foramen magnum. No Chiari one malformation. Incidental findings: Carotid siphons atherosclerotic calcifications.. IMPRESSION: 1. No acute intracranial abnormalities. 2. No intracranial hemorrhage or mass. Signed by: DR Reji Maria M.D. on 11/14/2017 3:59 PM Dictated By: REJI WEBB MD 5396 Transcribed By: MATTHEW on 11/14/17 351 COPY TO: WM RIBEIRO FLASH OVEN OPERATOR CT CERVICAL SPINE [id number] [place] [address] Patient Name: REAL CARR MR #: [id number] : 1950 Age/Sex: 66/F Req #: [id number] Adm Physician: EITAN CROOK MD Ordered by: WM RIBEIRO FLASH OVEN OPERATOR Report #: [id number] Location: [facility] Room/Bed: [place] [address] Procedure: [id number] CT/CT CERVICAL SPINE WO Exam Date: Exam Time: REPORT STATUS: Signed History: Syncope and fall. Comparison studies: None Technique: Axial images were obtained through the cervical region. Coronal and sagittal images reconstructed from the axial data. Intravenous contrast: None Findings: Atlantoaxial articulation: Intact Alignment: Straightening of the normal cervical lordosis is likely positional. No acute subluxation. Cervicomedullary junction: No abnormalities. Patent foramen magnum. Soft tissues: No prevertebral edema or hematoma. Carotid artery atherosclerotic calcifications. Vertebrae: No fractures, neoplasm or infection. Degenerative changes: Mild multilevel degenerative changes without significant spinal canal stenosis. IMPRESSION: No acute fracture or subluxation demonstrated within the cervical spine. Sign ed by: DR Reji Maria M.D. on 11/14/2017 4:00 PM Dictated By: REJI WEBB MD 1600 Transcribed By: MATTHEW on 11/14/17 1600 COPY TO: WM RIBEIRO FLASH OVEN OPERATOR CHEST SINGLE (PORTABLE) [place] [address] Patient Name: REAL CARR MR #: [id number] : 1950 Age/Sex: 66/F Req #: [id number] Adm Physician: Ordered by: WM RIBEIRO NP Report #: [id number] Location: ER Room/Bed: Procedure: [id number] DX/CHEST SINGLE (PORTABLE) Exam Date: 11/14/17 Exam Time: 1250 REPORT STATUS: Signed EXAMINATION: CHEST SINGLE (PORTABLE) INDICATION: COMPARISON: Chest radiograph 01/19/2017 FINDINGS: AP view TUBES and LINES: None. LUNGS: Lungs are well inflated. Lungs are clear. There is no evidence of pneumonia or pulmonary edema. PLEURA: No pleural effusion or pneumothorax. HEART AND MEDIASTINUM: Aortic arch calcifications. The cardiomediastinal silhouette is otherwise unremarkable. BONES AND SOFT TISSUES: No acute osseous lesion. Soft tissues are unremarkable. UPPER ABDOMEN: No free air under the diaphragm. IMPRESSION: No acute thoracic abnormality. Signed by: DR. Nathaniel Sanchez MD on 11/14/2017 1:21 PM Dictated By: NATHANIEL SANCHEZ MD 1321 Transcribed By: MATTHEW on 11/14/17 1321 COPY TO: WM RIBEIRO FLASH OVEN OPERATOR
--- OUTSIDE RECORDS SUMMARY | 2018-07-24 14:46 | XMS REPORT | Summary of Care ---
Author Author [facility] Organization [facility] Address Unknown Phone Unavailable Encounter [facility] Alem(CAYLA) [id number] Date(s): 08/18/16 - 08/18/16 [facility] [address] [place] [address]- [phone] Discharge Disposition: Home or Self Care Attending Physician: Akira Vasquez MD Admitting Physician: Akira Vasquez MD Vital Signs 1 2 3 Most recent to oldest [Reference Range]: 149.86 cm (08/18/16 10:00 AM) Height 98.4 DegF (08/18/16 7:07 PM) 98.2 DegF (08/18/16 2:22 PM) 98.3 DegF (08/18/16 10:00 AM) Temperature Oral [96.4-99.1 DegF] 142/48 mmHg *HI* (08/18/16 7:07 PM) 140/56 mmHg (08/18/16 2:22 PM) 181/94 mmHg *HI* (08/18/16 10:00 AM) Blood Pressure [90-140/60-90 mmHg] 18 BRMIN (08/18/16 7:07 PM) 18 BRMIN (08/18/16 2:22 PM) 18 BRMIN (08/18/16 10:00 AM) Respiratory Rate [14-20 BRMIN] 70 bpm (08/18/16 7:07 PM) 69 bpm (08/18/16 2:22 PM) 67 bpm (08/18/16 10:00 AM) Peripheral Pulse Rate [60-100 bpm] 59.091 kg (08/18/16 10:00 AM) Weight 26.31 m2 (08/18/16 10:00 AM) Body Mass Index Problem List Condition Effective Dates Status Health Status Informant Arthritis(Confirmed) Resolved Cholecystitis(Confir Resolved med) DM (diabetes Active mellitus), type 2(Confirmed) HTN Active (hypertension)(Confi rmed) Hyperlipidemia(Confi Active rmed) Thrombocytopenia(Con Active firmed) Hepatitis Active B(Confirmed) Allergies, Adverse Reactions, Alerts Substance Reaction Severity Status simvastatin Active Medications *Remind pt to bring home med Crestor* *Remind pt to bring home med Crestor*, Reminder, Drug form: MISC, Route: MISC, Q SHIFT, 08/19/16 0:00:00 GOLF COACH, Duration: 30 day, Stop date: 09/17/16 16:00:00 GOLF COACH Start Date: 08/19/16 Stop Date: 08/19/16 Status: Discontinued carvedilol 25 mg, 2 tab, Route: PO, Drug form: TAB, BID, Dosing Weight 59.091, kg, Start da te: 08/19/16 9:00:00 GOLF COACH, Duration: 30 day, Stop date: 09/17/16 21:00:00 GOLF COACH Notes: Give with food. (Same As: Coreg) Start Date: 08/19/16 Stop Date: 08/19/16 Status: Canceled Crestor 40 mg, Route: PO, Drug form: TAB, Bedtime, Dosing Weight 59.091, kg, Start date: 08/18/16 21:00:00 GOLF COACH, Duration: 30 day, Stop date: 09/16/16 21:00:00 GOLF COACH Start Date: 08/18/16 Stop Date: 08/19/16 Status: Discontinued ferrous sulfate 325 mg, 1 tab, Route: PO, Drug form: ECTAB, BID, Dosing Weight 59.091, kg, Start date: 08/19/16 9:00:00 GOLF COACH, Duration: 30 day, Stop date: 09/17/16 17:00:00 GOLF COACH Notes: Give with food. "Do Not Crush" Start Date: 08/19/16 Stop Date: 08/19/16 Status: Canceled metoclopramide 5 mg oral tablet 5 mg, 1 tab, Route: PO, Drug form: TAB, Bedtime, Dosing Weight 59.091, kg, Start date: 08/18/16 21:00:00 GOLF COACH, Duration: 30 day, Stop date: 09/16/16 21:00:00 GOLF COACH Notes: (Same as: Reglan) Take 30 min before meals Start Date: 08/18/16 Stop Date: 08/19/16 Status: Discontinued Nephro-Mc 1 tab, Route: PO, Drug Form: TAB, Dosing Weight 59.091, kg, Daily, Start date: 10/19/15 9:00:00 GOLF COACH, Duration: 30 day, Stop date: 09/17/16 9:00:00 GOLF COACH Notes: (Same as: Nephro-Mc Rx and Diatx) Give with food. Start Date: 08/19/16 Stop Date: 08/19/16 Status: Canceled Pepcid 20 mg oral tablet 20 mg, 1 tab, Route: PO, Drug form: TAB, Daily, Dosing Weight 59.091, kg, Start date: 08/19/16 9:00:00 GOLF COACH, Duration: 30 day, Stop date: 09/17/16 9:00:00 GOLF COACH Notes: (Same as: Pepcid) Start Date: 08/19/16 Stop Date: 08/19/16 Status: Canceled predniSONE 30 mg, 3 tab, Route: PO, Drug form: TAB, Daily, Dosing Weight 59.091, kg, Start date: 08/19/16 9:00:00 GOLF COACH, Duration: 30 day, Stop date: 09/17/16 9:00:00 GOLF COACH Notes: (Same as: PredniSONE) Take with food. Start Date: 08/19/16 Stop Date: 08/19/16 Status: Canceled Saline Flush 0.9% 10 mL, Route: IVP, Drug Form: INJ, Dosing Weight 59.091, kg, PRN, PRN Line Flush , Start date: 08/18/16 10:28:00 GOLF COACH, Duration: 30 day, Stop date: 09/17/16 10:27 :00 GOLF COACH Notes: (Same as: BD Posiflush) Start Date: 08/18/16 Stop Date: 08/19/16 Status: Discontinued Results ELECTROLYTES Most recent to 1 oldest [Reference Range]: Sodium Lvl [135-145 140 mEq/L mEq/L] (08/18/16 10:48 AM) Potassium Lvl 4.3 mEq/L [3.5-5.1 mEq/L] (08/18/16 10:48 AM) Chloride Lvl [95-109 101 mEq/L mEq/L] (08/18/16 10:48 AM) CO2 [24-32 mEq/L] 28 mEq/L (08/18/16 10:48 AM) AGAP [10.0-20.0 15.3 mEq/L mEq/L] (08/18/16 10:48 AM) CHEM PANEL Most recent to 1 oldest [Reference Range]: Creatinine Lvl 1.30 mg/dL [0.50-1.40 mg/dL] (08/18/16 10:48 AM) eGFR See Note (08/18/16 10:48 AM) BUN [7-22 mg/dL] 18 mg/dL (08/18/16 10:48 AM) B/C Ratio [6-25] 14 (08/18/16 10:48 AM) Glucose Lvl [70-99 272 mg/dL mg/dL] *HI* (08/18/16 10:48 AM) Total Protein 6.7 g/dL [6.4-8.4 g/dL] (08/18/16 10:48 AM) Albumin Lvl [3.5-5.0 3.4 g/dL g/dL] *LOW* (08/18/16 10:48 AM) Globulin [2.7-4.2 3.3 g/dL g/dL] (08/18/16 10:48 AM) A/G Ratio [0.7-1.6] 1.0 (08/18/16 10:48 AM) Calcium Lvl 8.4 mg/dL [8.5-10.5 mg/dL] *LOW* (08/18/16 10:48 AM) ALT [0-65 unit/L] 26 unit/L (08/18/16 10:48 AM) AST [0-37 unit/L] 19 unit/L (08/18/16 10:48 AM) Alk Phos [39-136 71 unit/L unit/L] (08/18/16 10:48 AM) Bili Total [0.2-1.3 0.8 mg/dL mg/dL] (08/18/16 10:48 AM) CARDIAC ENZYMES Most recent to 1 oldest [Reference Range]: Troponin-I <0.02 ng/mL [0.00-0.40 ng/mL] (08/18/16 10:48 AM) URINE AND STOOL Most recent to 1 oldest [Reference Range]: UA Turbidity [Clear] Clear (08/18/16 10:48 AM) UA Color Colorless *NA* (08/18/16 10:48 AM) UA pH [5.0-8.0] 7.0 (08/18/16 10:48 AM) UA Spec Grav 1.003 [<=1.030] (08/18/16 10:48 AM) UA Glucose [Negative 500 mg/dL mg/dL] *ABN* (08/18/16 10:48 AM) UA Blood [Negative] Negative (08/18/16 10:48 AM) UA Ketones [Negative Negative mg/dL mg/dL] *NA* (08/18/16 10:48 AM) UA Protein [Negative 30 mg/dL mg/dL] *ABN* (08/18/16 10:48 AM) UA Urobilinogen <=1.0 mg/dL [0.1-1.0 mg/dL] *NA* (08/18/16 10:48 AM) UA Bili [Negative] Negative *NA* (08/18/16 10:48 AM) UA Leuk Est Negative [Negative] (08/18/16 10:48 AM) UA Nitrite Negative [Negative] (08/18/16 10:48 AM) UA WBC [0-5 /HPF] <1 /HPF (08/18/16 10:48 AM) UA Bacteria [None Occasional /HPF Seen /HPF] *NA* (08/18/16 10:48 AM) UA Sq Epi [Few /LPF] Occasional /LPF *NA* (08/18/16 10:48 AM) HEMATOLOGY Most recent to 1 oldest [Reference Range]: WBC [3.7-10.4 K/CMM] 7.2 K/CMM (08/18/16 10:48 AM) RBC [4.20-5.40 3.94 M/CMM M/CMM] *LOW* (08/18/16 10:48 AM) Hgb [12.0-16.0 g/dL] 11.3 g/dL *LOW* (08/18/16 10:48 AM) Hct [36.0-48.0 %] 34.8 % *LOW* (08/18/16 10:48 AM) MCV [80.0-98.0 fL] 88.1 fL (08/18/16 10:48 AM) MCH [27.0-31.0 pg] 28.7 pg (08/18/16 10:48 AM) MCHC [32.0-36.0 32.6 g/dL g/dL] (08/18/16 10:48 AM) RDW [11.5-14.5 %] 14.8 % *HI* (08/18/16 10:48 AM) Platelet [133-450 158 K/CMM K/CMM] (08/18/16 10:48 AM) MPV [7.4-10.4 fL] 9.5 fL (08/18/16 10:48 AM) Segs [45.0-75.0 %] 77.6 % *HI* (08/18/16 10:48 AM) Lymphocytes 14.8 % [20.0-40.0 %] *LOW* (08/18/16 10:48 AM) Monocytes [2.0-12.0 5.6 % %] (08/18/16 10:48 AM) Eosinophils [0.0-4.0 1.4 % %] (08/18/16 10:48 AM) Basophils [0.0-1.0 0.6 % %] (08/18/16 10:48 AM) Segs-Bands # 5.6 K/CMM [1.5-8.1 K/CMM] (08/18/16 10:48 AM) Lymphocytes # 1.1 K/CMM [1.0-5.5 K/CMM] (08/18/16 10:48 AM) Monocytes # [0.0-0.8 0.4 K/CMM K/CMM] (08/18/16 10:48 AM) Eosinophils # 0.1 K/CMM [0.0-0.5 K/CMM] (08/18/16 10:48 AM) Immunizations No data available for this [...]
== END 2018-07-24 15:13 | disposition home or self-care (01) ==
LOC: ER 14:40
DX: I10 Essential (primary) hypertension (principal); E11.9 Type 2 diabetes mellitus without complications; E78.5 Hyperlipidemia, unspecified
CPT/HCPCS: 99282

== ENCOUNTER 2019-07-29 11:26 | Inpatient (IN) | payer MEDICARE ==
[2019-07-29] VITALS (11 sets, daily range): BP systolic 94–127; BP diastolic 38–75
[~2019-07-29] VITALS: Ht 149.9 cm; Wt 39.5 kg
[2019-07-29] MEDS ORDERED: SODIUM CHLORIDE 0.9% 1000ML 1,000 ML IV STA (11:29)
[2019-07-29] MEDS ORDERED: ONDANSETRON HCL INJ 2MG/ML 2ML 2 MG/ML VIAL IV STA (11:29)
[2019-07-29] MEDS ORDERED: ASPIRIN 81 MG CHEW TAB PO ONE (11:30)
[2019-07-29 12:08] LABS: ABG HCO3 15 mmol/L (23-28); ABG PCO2 28 mmHg (41-51); ABG PH 7.34 (7.31-7.41); ABG PO2 166 mmHg (80-105)
[2019-07-29] MEDS: SODIUM CHLORIDE 0.9% 1000ML 1,000 ML IV SCH ×5 (12:15→17:20)
[2019-07-29 12:47] LABS: BASOPHILS % 0.2 % (0.0-1.0); EOSINOPHILS # (AUTO) 0.2 (0.0-0.4); EOSINOPHILS % 1.3 % (0.0-6.0); HEMATOCRIT 32.6 % (34.2-44.1); HEMOGLOBIN 11.2 g/dL (12.0-16.0); LYMPHOCYTES # (AUTO) 0.3 (1.0-3.2); LYMPHOCYTES % 1.6 % (18.0-39.1); MEAN CORPUSCULAR HGB CONC 34.4 g/dL (31-35); MEAN CORPUSCULAR VOLUME 90.3 fL (81-99); MONOCYTES % 5.7 % (4.4-11.3); NEUTROPHILS % 90.4 % (38.7-80.0); PLATELET COUNT 142 x10e3/uL (140-360); RED BLOOD COUNT 3.61 x10e6/uL (3.6-5.1)
[2019-07-29] MEDS ORDERED: LEVOFLOXACIN 750MG/D5W 150ML 150 ML IV SCH (13:00)
[2019-07-29 13:11] LABS: ALBUMIN 2.9 g/dL (3.5-5.0); ALBUMIN/GLOBULIN RATIO 0.9 (0.8-2.0); ANION GAP 27.4 mmol/L (8-16); CALCIUM 9.5 mg/dL (8.4-10.2); POTASSIUM 4.4 mmol/L (3.5-5.1)
[2019-07-29] MEDS ORDERED: ONDANSETRON HCL INJ 2MG/ML 2ML 2 MG/ML VIAL IV PRN (13:15)
[2019-07-29] MEDS: DEXTROSE 5%/0.45% SOD CHL 1,000 ML IV SCH ×2 (13:18→22:15)
[2019-07-29 13:19] LABS: CREATINE KINASE MB 1.6 ng/mL (0-5.0)
--- NOTE | 2019-07-29 13:20 | Diagnostic Imaging Report ---
EXAMINATION: CHEST SINGLE (PORTABLE) INDICATION: Fall COMPARISON: Chest radiograph of 11/14/2017 FINDINGS: LINES/TUBES:EKG leads overlie the chest. LUNGS:The lungs are well-inflated. No focal consolidation or pulmonary edema. PLEURA:No pleural effusion or pneumothorax. MEDIASTINUM:The cardiomediastinal silhouette appears normal in size and shape. Atherosclerotic calcifications of the thoracic aorta. BONES/SOFT TISSUES:No acute osseous injury. ABDOMEN:No free air under the diaphragm. IMPRESSION: No focal pneumonia or pulmonary edema. Signed by: Anastasiya Boss MD on 07/29/2019 1:17 PM
[2019-07-29] MEDS ORDERED: POTASSIUM CHLORIDE 20MEQ/100ML 200 ML IV PRN (13:30)
[2019-07-29] MEDS ORDERED: DEXTROSE 50% SYRINGE 50 ML IV PRN (13:30)
[2019-07-29] MEDS ORDERED: MAGNESIUM SULF 1GRAM/DEXTROSE 100 ML IV PRN (13:30)
[2019-07-29 13:41] LABS: BILIRUBIN,URINE SMALL (NEGATIVE); CLARITY,URINE SL CLOUDY (CLEAR); COLOR,URINE YELLOW (YELLOW); KETONES,URINE 1+ (NEGATIVE); LEUKOCYTE ESTERASE ,URINE NEGATIVE (NEGATIVE); NITRITE,URINE NEGATIVE (NEGATIVE); PROTEIN,URINE DIPSTICK NEGATIVE (NEGATIVE); URINE UROBILINOGEN 0.2 mg/dL (0.2 - 1)
[2019-07-29] MEDS ORDERED: INSULIN REGULAR, HUMAN 3ML VL 100 UNIT in SODIUM CHLORIDE 0.9% 99 ML IV SCH ×2 (14:00)
[2019-07-29 14:12] LABS: BACTERIA,URINE MODERATE /HPF; RBC,URINE 0-5 /HPF (0-5)
[2019-07-29 14:15] LABS: AMORPHOUS SEDIMENT,URINE MANY (FEW); EPITHELIAL CELLS,URINE MODERATE /LPF
[2019-07-29 14:32] LABS: BAND NEUTROPHILS % (MANUAL) 6 %; LYMPHOCYTES % (MANUAL) 2 % (19-48); MONOCYTES % (MANUAL) 6 % (3.4-9.0); NEUTROPHILS % (MANUAL) 85 % (40-74); PLASMA CELLS %(MANUAL) 1
[2019-07-29 14:34] LABS: ANISOCYTOSIS SLIGHT; HELMET CELLS SLIGHT; MICROCYTOSIS SLIGHT; POIKILOCYTOSIS SLIGHT
[2019-07-29 14:35] LABS: PLATELET ESTIMATE ADEQUATE; RBC MORPHOLOGY COMMENT NORMAL
[2019-07-29 14:36] LABS: PLATELET MORPHOLOGY COMMENT NORMAL
--- NOTE | 2019-07-29 14:50 | NUR ---
Report called to ICU
[2019-07-29] MEDS ORDERED: ZETIA10 MG PO (16:27)
[2019-07-29] MEDS ORDERED: ALENDRONATE SOD70 MG PO (16:27)
[2019-07-29] MEDS: INSULIN REGULAR, HUMAN 100 UNIT/1 ML 3ML VIAL SQ SCH ×2 (16:30→21:00)
[2019-07-29] MEDS: PIPER-TAZ 3.375 GM 50 ML IV SCH (18:05)
[2019-07-29 18:08] LABS: ANION GAP 16.7 mmol/L (8-16); CREATININE, SERUM 1.43 mg/dL (0.57-1.11); MAGNESIUM 1.9 MG/DL (1.3-2.1); POTASSIUM 3.7 mmol/L (3.5-5.1)
[2019-07-29] MEDS ORDERED: MELATONIN 5 MG TABLET PO PRN (19:30)
[2019-07-29] MEDS ORDERED: HYDRALAZINE HCL 20 MG/ML VIAL IV PRN (19:30)
[2019-07-29] MEDS ORDERED: ACETAMINOPHEN 325 MG TAB PO PRN (19:30)
[2019-07-29] MEDS: CRESTOR 10MG PO SCH (20:18)
[2019-07-29] MEDS ORDERED: SIMVASTATIN 40 MG TAB PO SCH (21:00)
[2019-07-29 21:11] LABS: ANION GAP 12.5 mmol/L (8-16); CREATININE, SERUM 1.2 mg/dL (0.57-1.11); MAGNESIUM 1.8 MG/DL (1.3-2.1); POTASSIUM 3.5 mmol/L (3.5-5.1)
[2019-07-29 21:17] LABS: CREATINE KINASE MB 1.6 ng/mL (0-5.0)
[2019-07-30] VITALS (26 sets, daily range): BP systolic 102–127; BP diastolic 44–90
[2019-07-30 02:05] LABS: CREATINE KINASE MB 1.3 ng/mL (0-5.0)
[2019-07-30] MEDS: PIPER-TAZ 3.375 GM 50 ML IV SCH ×5 (02:11→23:49)
[2019-07-30] MEDS: SODIUM CHLORIDE 0.9% 1000ML 1,000 ML IV SCH ×3 (02:23→13:00)
[2019-07-30 02:36] LABS: ANION GAP 9.6 mmol/L (8-16); CALCIUM 7.5 mg/dL (8.4-10.2); CREATININE, SERUM 0.92 mg/dL (0.57-1.11); MAGNESIUM 1.8 MG/DL (1.3-2.1); POTASSIUM 3.6 mmol/L (3.5-5.1)
[2019-07-30 03:25] LABS: THYROID STIMULATING HORMONE 0.645 uIU/mL (0.350-4.940)
[2019-07-30 05:02] LABS: ANION GAP 8.9 mmol/L (8-16); CALCIUM 7.3 mg/dL (8.4-10.2); CREATININE, SERUM 0.95 mg/dL (0.57-1.11); MAGNESIUM 1.8 MG/DL (1.3-2.1)
[2019-07-30 05:05] LABS: POTASSIUM 2.9 mmol/L (3.5-5.1)
[2019-07-30 05:11] LABS: BASOPHILS % 0.3 % (0.0-1.0); EOSINOPHILS % 0.1 % (0.0-6.0); HEMOGLOBIN 7.8 g/dL (12.0-16.0); LYMPHOCYTES # (AUTO) 0.7 (1.0-3.2); LYMPHOCYTES % 6.2 % (18.0-39.1); MEAN CORPUSCULAR HEMOGLOBIN 31.6 pg (28-32); MEAN CORPUSCULAR HGB CONC 35.5 g/dL (31-35); MEAN CORPUSCULAR VOLUME 89.1 fL (81-99); MONOCYTES # (AUTO) 0.4 (0.2-0.8); MONOCYTES % 3.4 % (4.4-11.3); NEUTROPHILS % 88.2 % (38.7-80.0); RED BLOOD COUNT 2.47 x10e6/uL (3.6-5.1); RED CELL DISTRIBUTION WIDTH 13.2 % (11.7-14.4)
[2019-07-30] MEDS ORDERED: POTASSIUM CHLORIDE 20MEQ/100ML 200 ML ONE (05:12)
[2019-07-30 05:18] LABS: PLATELET COUNT 73 x10e3/uL (140-360)
[2019-07-30 06:39] LABS: BAND NEUTROPHILS % (MANUAL) 15 %; LYMPHOCYTES % (MANUAL) 9 % (19-48); MONOCYTES % (MANUAL) 2 % (3.4-9.0); NEUTROPHILS % (MANUAL) 74 % (40-74)
[2019-07-30 06:41] LABS: PLATELET ESTIMATE MODERATELY DECREASED; PLATELET MORPHOLOGY COMMENT NORMAL; RBC MORPHOLOGY COMMENT NORMAL
[2019-07-30 06:42] LABS: POIKILOCYTOSIS SLIGHT
[2019-07-30] MEDS: INSULIN REGULAR, HUMAN 100 UNIT/1 ML 3ML VIAL SQ SCH ×2 (07:30→11:30)
[2019-07-30] MEDS: DEXTROSE 5%/0.45% SOD CHL 1,000 ML IV SCH ×3 (07:45→21:03)
[2019-07-30] MEDS ORDERED: OYST-CAL-D 500MG TABLET PO ONE (07:45)
[2019-07-30 08:03] LABS: BASOPHILS % 0.2 % (0.0-1.0); EOSINOPHILS % 0.2 % (0.0-6.0); HEMOGLOBIN 8.6 g/dL (12.0-16.0); LYMPHOCYTES # (AUTO) 1.4 (1.0-3.2); LYMPHOCYTES % 10.9 % (18.0-39.1); MEAN CORPUSCULAR HEMOGLOBIN 31.2 pg (28-32); MEAN CORPUSCULAR HGB CONC 34.4 g/dL (31-35); MEAN CORPUSCULAR VOLUME 90.6 fL (81-99); MONOCYTES # (AUTO) 0.7 (0.2-0.8); MONOCYTES % 5.4 % (4.4-11.3); NEUTROPHILS % 79.8 % (38.7-80.0); PLATELET COUNT 91 x10e3/uL (140-360); RED BLOOD COUNT 2.76 x10e6/uL (3.6-5.1); RED CELL DISTRIBUTION WIDTH 13.3 % (11.7-14.4)
[2019-07-30 08:26] LABS: ANION GAP 9.5 mmol/L (8-16); BLOOD UREA NITROGEN 17 mg/dL (7-26); BUN/CREATININE RATIO 20 (6-25); CALCIUM 7.7 mg/dL (8.4-10.2); CARBON DIOXIDE 20 mmol/L (22-29); CHLORIDE 107 mmol/L (98-107); CREATININE, SERUM 0.84 mg/dL (0.57-1.11); EST GLOMERULAR FILTRATION RATE > 60 ML/MIN (60-); POTASSIUM 3.5 mmol/L (3.5-5.1); SODIUM 133 mmol/L (136-145)
[2019-07-30 08:29] LABS: GLUCOSE 39 mg/dL (74-118)
[2019-07-30] MEDS: CITALOPRAM HYDROBROMIDE 20 MG TAB PO SCH (09:00)
[2019-07-30] MEDS: EZETIMIBE 10 MG TAB PO SCH (09:00)
[2019-07-30] MEDS: PANTOPRAZOLE SOD 40 MG TABEC PO SCH (09:00)
[2019-07-30 10:49] LABS: NEUTROPHILS % (MANUAL) 81 % (40-74)
[2019-07-30 10:50] LABS: BAND NEUTROPHILS % (MANUAL) 9 %; LYMPHOCYTES % (MANUAL) 9 % (19-48); MONOCYTES % (MANUAL) 1 % (3.4-9.0); PLATELET ESTIMATE MODERATELY DECREASED; PLATELET MORPHOLOGY COMMENT NORMAL; RBC MORPHOLOGY COMMENT NORMAL
--- NOTE | 2019-07-30 13:26 | NUR ---
Nutrition Screen Note RD Recommendation for Physician: Continue diet as ordered Plan of Care: RD following, monitoring for tolerance and adequacy Nutrition reason for involvement: Nutrition Risk Trigger -Sepsis, BMI of 17.8 Primary Diagnose(s): sepsis PMH:T2DM, TIA, HTN, Cirrhosis Ht:59 in Wt:88lb BMI:17.8 kg/m2 IBW:95lb +/-10% RD Assessment: (07/30/2019) Chart reviewed. Labs and meds reviewed. Initial encounter with patient. Pt denies any known food allergies. Pt has missing teeth, but denies any difficulty chewing or swallowing, nor has any N,V,D. Pt confirms wt loss and a decreased appetite/Po intake [employer], but Can't elaborate on any details. Pt can feed herself. Pt ate about 50% of of lunch meal tray. States appetite is improving. Current Diet: 1800 ADA Malnutrition Evaluation (07/30/2019) The patient meets criteria for MODERATE protein-calorie malnutrition. Energy intake: <50% of estimated energy requirements for >5 days Weight loss: >7.5% in 3 months (Chronic) Fat loss: Moderate Muscle loss: Moderate Supporting Evidence: Fluid accumulation: None Functional Status: no changes Diet Education Needs Assessment: Diet education not indicated. Nutrition Care Level: Moderate Signed: Sonido Romo RD, LD, [facility]
[2019-07-30 13:40] LABS: ALANINE AMINOTRANSFERASE 13 IU/L (0-55); ALBUMIN 2.1 g/dL (3.5-5.0); ALBUMIN/GLOBULIN RATIO 0.7 (0.8-2.0); ALKALINE PHOSPHATASE 50 IU/L (40-150); ANION GAP 8.8 mmol/L (8-16); BLOOD UREA NITROGEN 16 mg/dL (7-26); BUN/CREATININE RATIO 18 (6-25); CALCIUM 7.7 mg/dL (8.4-10.2); CARBON DIOXIDE 21 mmol/L (22-29); CHLORIDE 103 mmol/L (98-107); CREATININE, SERUM 0.89 mg/dL (0.57-1.11); EST GLOMERULAR FILTRATION RATE > 60 ML/MIN (60-); POTASSIUM 3.8 mmol/L (3.5-5.1); SODIUM 129 mmol/L (136-145)
[2019-07-30 14:00] LABS: GLUCOSE 39 mg/dL (74-118)
[2019-07-30] MEDS ORDERED: SODIUM CHLORIDE 0.9% 50ML 50 ML ONE (15:37)
[2019-07-30] MEDS ORDERED: IOPAMIDOL 370 MG/ML 200 ML INFUS..BTL INJ ONE (15:37)
--- NOTE | 2019-07-30 16:21 | Diagnostic Imaging Report ---
EXAM: CT Abdomen and Pelvis WITH contrast INDICATION: Sepsis. Diarrhea. COMPARISON: None. TECHNIQUE: Abdomen and pelvis were scanned utilizing a multidetector helical scanner from the lung base to the pubic symphysis after administration of IV contrast. Coronal and sagittal reformations were obtained. Routine protocol was performed. Scan was performed when during portal venous phase. IV CONTRAST: 100 cc Isovue-300. ORAL CONTRAST: Water RADIATION DOSE: Total DLP: 179.50 mGy*cm Estimated effective dose: (DLP x 0.015 x size factor) mSv COMPLICATIONS: None FINDINGS: LINES and TUBES: Right femoral central venous catheter with distal tip in the distal right external iliac vein. LOWER THORAX: Bilateral small pleural effusions and bibasilar compressive atelectasis. Small to moderate-sized hiatal hernia containing the gastric fundus. HEPATOBILIARY: No focal hepatic lesions. No biliary ductal dilation. GALLBLADDER: No radio-opaque stones or sludge. Mild gallbladder wall thickening versus trace pericholecystic fluid; estimated at 6.6 mm on coronal image 24. SPLEEN: No splenomegaly. PANCREAS: No focal masses or ductal dilatation. ADRENALS: No adrenal nodules KIDNEYS/URETERS: Bilateral cortical renal scarring either sequela from prior infection or vascular insult. 6 mm ill-defined low-attenuation lesion in the anterior interpolar region of the left kidney on image 23. Kidneys enhance symmetrically. No hydronephrosis. No cystic or solid mass lesions. No stones. GI TRACT: No abnormal distention, wall thickening, or evidence of bowel obstruction. Appendix is nonvisualized. PELVIC ORGANS/BLADDER: Urinary bladder decompressed by a Camacho catheter. Status post hysterectomy. LYMPH NODES: No lymphadenopathy. VESSELS: There is severe atherosclerotic disease in the aorta and major arterial branches. The celiac axis, SMA, bilateral renal arteries and RAUDEL demonstrate atherosclerotic plaque with focal areas of narrowing, however, no occlusion. PERITONEUM / RETROPERITONEUM: Small volume ascites. BONES: Unremarkable. SOFT TISSUES: Unremarkable. IMPRESSION: 1. Mild wall thickening of the descending colon is nonspecific; differential includes infectious, and inflammatory etiologies. Ischemic colitis is less likely, however, within differential diagnosis. 2. Bilateral small pleural effusions and bibasilar compressive atelectasis. 3. Mild gallbladder wall thickening versus trace pericholecystic fluid finding. Correlate for right upper quadrant pain. Otherwise no acute abnormality. 4. Small volume ascites. Signed by: Dr. Roderick Valdovinos M.D. on 07/30/2019 4:17 PM
[2019-07-30] MEDS ORDERED: DEXTROSE 50% SYRINGE 50 ML IV PRN (16:30)
[2019-07-30] MEDS: INSULIN REGULAR, HUMAN 3ML VL 100 UNIT in SODIUM CHLORIDE 0.45% 100 ML 99 ML IV SCH ×4 (17:00→19:16)
[2019-07-30 17:43] LABS: FREE T4 (FREE THYROXINE) 0.65 ng/dL (0.8-1.8); THYROID STIMULATING HORMONE 0.885 uIU/mL (0.350-4.940)
--- NOTE | 2019-07-30 18:31 | Consultation ---
DATE OF CONSULTATION: Pulmonary Critical Care Consultation CHIEF COMPLAINT: Diarrhea and unsteadiness. HISTORY OF PRESENT ILLNESS: The patient is a 68-year-old woman. She has a history of diabetes mellitus. She takes insulin at home as well as Actos. She was hospitalized in October of 2017 with elevated blood sugars and presyncope. She now complains of increased diarrhea. She also felt unsteady and tripped. When she arrived in the Emergency Department, she was noted to have elevated blood sugars with an anion gap. She was started on an insulin drip along with IV fluids. She reports improvement in her symptoms. PAST MEDICAL HISTORY: 1. Diabetes mellitus. 2. Hypertension. 3. Prior history of liver disease. 4. Thrombocytopenia. PAST SURGICAL HISTORY: 1. Status post hysterectomy. 2. Status post appendectomy. ALLERGIES: THE PATIENT IS ALLERGIC TO SIMVASTATIN. SOCIAL HISTORY: The patient is not an active smoker. She is not a drinker. FAMILY HISTORY: Noncontributory. REVIEW OF SYSTEMS: She has no fever. She has no headache. She was complaining of some unsteadiness and the fall. She is not complaining of chest pain. She has no nausea or vomiting. She has no shortness of breath. She is not having any cough. Her abdomen is not painful. She did have diarrhea, but no nausea or vomiting. PHYSICAL EXAMINATION: VITAL SIGNS: The blood pressure is 109/47, saturation is 99% on 2 liters, the pulse is 108, and respiratory rate is 18. HEENT: Shows no facial swelling or erythema. CARDIAC: Reveals regular rate and rhythm with normal S1 and S2. LUNGS: Auscultation of lungs reveal clear breath sounds bilaterally. There is no wheezing. ABDOMEN: Soft and nontender. There is no rebound or guarding. EXTREMITIES: Show no leg edema or calf tenderness. There is no cyanosis or clubbing. NEUROLOGICAL: Shows no focal abnormalities. LABORATORY DATA: White blood cell count is 12.5, the hemoglobin is 8.6, and the platelet count is 91. The chloride is now 107 with a bicarb of 20 and no anion gap. Blood sugars in the 115 to 125 range. RADIOGRAPHIC DATA: Chest x-ray shows no active disease. IMPRESSION: 1. Diabetic ketoacidosis. 2. Prior history of liver disease. 3. Thrombocytopenia. 4. Anemia secondary to chronic blood loss. PLAN: 1. The patient has improved with insulin drip and IV fluids. Her IV insulin can be stopped and she can be switched back to the subcutaneous insulin. 2. Continue to monitor blood counts. 3. Await results of echocardiogram. MD TYRESE Garces/MODL /[id number]
[2019-07-30] MEDS: CRESTOR 10MG PO SCH (21:03)
[2019-07-30] MEDS: INSULIN GLARGINE 100 UNITS/ML VIAL SQ SCH (21:06)
--- NOTE | 2019-07-30 23:56 | Consultation ---
DATE OF CONSULTATION: 07/30/2019 Endocrine Consultation This is a patient of Dr. Means. Thank you very much for referring this patient. HISTORY OF PRESENT ILLNESS: This is a 68-year-old lady, who was referred to me for evaluation of uncontrolled diabetes mellitus and diabetic ketoacidosis. The patient was brought to the hospital with history of polyuria, polydipsia, dryness of mouth, dehydration, high fever. On further evaluation, blood sugar was found to be 786 and anion gap was 27.4. Her lactic acid level was 3.1. The patient is a known diabetic for almost 20 years and she tells me that she takes a combination of Lantus and Humalog insulin at home. She also takes pioglitazone 30 mg once daily. The patient lives by herself. We are not sure that the patient is taking her insulin on a regular basis. She also was found to have urinary tract infection. She has history of hyperlipidemia and hypertension. On physical examination, the patient according to the radiologist, she has lost a significant amount of weight. PHYSICAL EXAMINATION: GENERAL: Today, the patient is alert, awake. She looks very cachectic. VITAL SIGNS: Her heart rate is around 70, blood pressure 130/80 mmHg. HEENT: Essentially unremarkable. Thyroid is palpable. Clinically, she is near euthyroid. CHEST: Bilateral vesicular breathing all over. CARDIOVASCULAR: Both first and second heart sounds. There is no 3rd or 4th heart sounds. There is ejection systolic murmur grade 2/6. 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 Her glycohemoglobin was 18.8, which is significantly elevated. IMPRESSION: Diabetes mellitus type 2, uncontrolled with complication, diabetic ketoacidosis, urinary tract infection, dehydration, and altered mental status. Rule out dementia. PLAN: At this time is to continue the insulin drip. Monitor her blood sugars closely and I have discussed with the patient's relatives about their medical supervision for insulin shots. Thanks again for referring this patient. I will be following this patient with you. MD TICO Aldrich/TATIANA /[id number] GENIE
[2019-07-31] VITALS (13 sets, daily range): BP systolic 112–156; BP diastolic 48–83
[2019-07-31 05:27] LABS: BASOPHILS % 0.3 % (0.0-1.0); EOSINOPHILS % 0.3 % (0.0-6.0); HEMOGLOBIN 7.9 g/dL (12.0-16.0); LYMPHOCYTES # (AUTO) 0.9 (1.0-3.2); LYMPHOCYTES % 8.3 % (18.0-39.1); MEAN CORPUSCULAR HGB CONC 34.8 g/dL (31-35); MONOCYTES # (AUTO) 0.3 (0.2-0.8); MONOCYTES % 3.1 % (4.4-11.3); NEUTROPHILS # (AUTO) 8.7 (2.1-6.9); NEUTROPHILS % 85.5 % (38.7-80.0); PLATELET COUNT 75 x10e3/uL (140-360); RED BLOOD COUNT 2.55 x10e6/uL (3.6-5.1); RED CELL DISTRIBUTION WIDTH 13.4 % (11.7-14.4)
[2019-07-31 05:30] LABS: HEMATOCRIT 22.7 % (34.2-44.1)
[2019-07-31 05:44] LABS: ANION GAP 9.2 mmol/L (8-16); BLOOD UREA NITROGEN 11 mg/dL (7-26); BUN/CREATININE RATIO 15 (6-25); CALCIUM 7.3 mg/dL (8.4-10.2); CARBON DIOXIDE 20 mmol/L (22-29); CHLORIDE 104 mmol/L (98-107); CREATININE, SERUM 0.73 mg/dL (0.57-1.11); EST GLOMERULAR FILTRATION RATE > 60 ML/MIN (60-); GLUCOSE 96 mg/dL (74-118); POTASSIUM 3.2 mmol/L (3.5-5.1); SODIUM 130 mmol/L (136-145)
[2019-07-31 06:06] LABS: FERRITIN 238.15 ng/mL (4.63-204.00)
[2019-07-31] MEDS: DEXTROSE 5%/0.45% SOD CHL 1,000 ML IV SCH ×2 (06:24→14:32)
[2019-07-31] MEDS: PIPER-TAZ 3.375 GM 50 ML IV SCH ×3 (06:24→17:05)
[2019-07-31] MEDS ORDERED: POTASSIUM CHLORIDE 20MEQ/100ML 0 ML ONE (08:19)
[2019-07-31] MEDS: PANTOPRAZOLE SOD 40 MG TABEC PO SCH (08:25)
[2019-07-31] MEDS: ASCORBIC ACID 500 MG TAB PO SCH ×2 (08:25→16:33)
[2019-07-31] MEDS: CITALOPRAM HYDROBROMIDE 20 MG TAB PO SCH (08:25)
[2019-07-31] MEDS: FERROUS SULFATE 325 MG TAB PO SCH ×2 (08:25→16:33)
[2019-07-31] MEDS: EZETIMIBE 10 MG TAB PO SCH (08:25)
[2019-07-31] MEDS ORDERED: POTASSIUM CHLORIDE 10MEQ EA PO NR (10:45)
[2019-07-31] MEDS: INSULIN LISPRO 100 UNIT/1 ML 3ML VIAL SQ SCH ×3 (15:45→20:51)
--- NOTE | 2019-07-31 16:00 | NUR ---
NOTIFIED DR FOWLER OF [facility]. GIVE SCHEDULED INSULIN IF PATIENT EATS WELL
[2019-07-31] MEDS ORDERED: INSULIN LISPRO 100 UNIT/1 ML 3ML VIAL SQ SCH (16:30)
[2019-07-31] MEDS: CRESTOR 10MG PO SCH (20:50)
[2019-07-31] MEDS: INSULIN GLARGINE 100 UNITS/ML VIAL SQ SCH (20:53)
[2019-08-01] VITALS (10 sets, daily range): BP systolic 124–177; BP diastolic 61–93
[2019-08-01] MEDS: DEXTROSE 5%/0.45% SOD CHL 1,000 ML IV SCH ×2 (00:31→10:53)
[2019-08-01] MEDS: PIPER-TAZ 3.375 GM 50 ML IV SCH ×4 (00:31→16:56)
[2019-08-01] MEDS: INSULIN LISPRO 100 UNIT/1 ML 3ML VIAL SQ SCH ×6 (07:46→16:08)
[2019-08-01] MEDS: PANTOPRAZOLE SOD 40 MG TABEC PO SCH (08:44)
[2019-08-01] MEDS: CITALOPRAM HYDROBROMIDE 20 MG TAB PO SCH (08:44)
[2019-08-01] MEDS: FERROUS SULFATE 325 MG TAB PO SCH ×2 (08:44→16:04)
[2019-08-01] MEDS: EZETIMIBE 10 MG TAB PO SCH (08:44)
[2019-08-01] MEDS: ASCORBIC ACID 500 MG TAB PO SCH ×2 (08:44→16:04)
--- NOTE | 2019-08-01 12:16 | NUR ---
IMM given to patient, patient signed, placed in chart, copy given to patient
[2019-08-01] MEDS ORDERED: FERROUS SULFAT325 MG PO (13:46)
[2019-08-01] MEDS ORDERED: VITAMIN C WITH500 MG PO (13:46)
[2019-08-01] MEDS ORDERED: AUGMENTIN 875-1 EACH PO (13:48)
[2019-08-01] MEDS ORDERED: HUMALOG100 UNIT/1 SQ (13:53)
[2019-08-01] MEDS ORDERED: LANTUS SQ (13:53)
--- NOTE | 2019-08-01 14:13 | NUR ---
Received order for home health care. Discussed choices with patient. [facility]CKEN[facility] chosen. Called [phone] for new referral, spoke to Celina who states the office staff will review the info tomorrow. Notified her that patient is D/C'ing today. Clinicals faxed to [phone].
--- NOTE | 2019-08-01 15:12 | NUR ---
Dr Walton to bedside; paper Rx on chart. Kina Weldon to bedside; orders to d/c home with home health. Patient refusing to get OOB with PT and RN x2. Patient eventually able to pivot into chair. Per Yakelin, wire charger conversation with Kina Weldon, okay to proceed with discharge once saavedra, CVL removed and family to bedside.
[2019-08-01] MEDS ORDERED: FLUCONAZOLE 100 MG TAB PO ONE (15:15)
[2019-08-01] MEDS ORDERED: ATROPINE SULFATE 0.1 MG/ML 10ML SYR ONE (16:15)
--- NOTE | 2019-08-01 16:56 | NUR ---
Femoral CVL discontinued and tip assessed to be intact by 2 RNs. Patient son is en route to review discharge teaching and take patient home.
--- NOTE | 2019-08-01 18:20 | NUR ---
Patient discharged home in the care of her son and his fiancee.
== END 2019-08-01 18:55 | disposition home health service (06) | DRG 871 ==
LOC: ER 11:26 → ERHOLD 13:14 → ICU 15:07
PROVIDERS: ADMIT Internal Medicine; ATTEND Internal Medicine
DX: A41.9 Sepsis, unspecified organism (principal); E11.10 Type 2 diabetes mellitus with ketoacidosis without coma; N39.0 Urinary tract infection, site not specified; A04.72 Enterocolitis due to Clostridium difficile, not specified as recurrent; E11.9 Type 2 diabetes mellitus without complications; R65.20 Severe sepsis without septic shock; I10 Essential (primary) hypertension; Z79.4 Long term (current) use of insulin; E87.6 Hypokalemia; B96.89 Other specified bacterial agents as the cause of diseases classified elsewhere; R01.1 Cardiac murmur, unspecified; E86.0 Dehydration; D50.0 Iron deficiency anemia secondary to blood loss (chronic)
CPT/HCPCS: 36415; 36555; 36600; 51700; 71045; 74177; 80048; 80053; 80061; 81001; 82550; 82553; 82607; 82728; 82805; 82948; 83036; 83540; 83605; 83690; 83735; 84439; 84443; 84466; 84484; 85025; 87040; 87086; 93005; 93306; 97139; 99284; J1815; J1817; J2405; J2543; J3480; J7030; J7050; Q9967

== ENCOUNTER 2020-07-07 09:31 | Emergency (ER) | payer MEDICARE ==
[~2020-07-07] VITALS: Ht 149.9 cm; Wt 39.5 kg
[~2020-07-07 09:31] MED LIST changes: +ALENDRONATE SOD70 MG PO; +ASPIRIN CHEW81 MG PO; +AUGMENTIN 875-1 EACH PO; +CELEXA20 MG PO; +FUROSEMIDE20 MG PO; +HUMALOG JU100 UNIT/1 SQ; +HUMALOG100 UNIT/1 SQ; +LANTUS SQ; +LEVETIRACETAM500 MG PO; +LEVOTHYROXINE50 MCG PO; +LISINOPRIL5 MG PO; +MIRTAZAPINE15 MG PO; +PROTONIX40 MG/ML PO; +VITAMIN C WITH500 MG PO
[2020-07-07] MEDS ORDERED: SODIUM CHLORIDE 0.9% 1000ML 1,000 ML IV STA ×2 (09:33→10:54)
[2020-07-07 10:36] LABS: BASOPHILS % 0.6 % (0.0-1.0); EOSINOPHILS % 0.1 % (0.0-6.0); HEMATOCRIT 36.3 % (34.2-44.1); HEMOGLOBIN 12.1 g/dL (12.0-16.0); LYMPHOCYTES # (AUTO) 0.6 (1.0-3.2); LYMPHOCYTES % 8.8 % (18.0-39.1); MEAN CORPUSCULAR HGB CONC 33.3 g/dL (31-35); MEAN CORPUSCULAR VOLUME 90.1 fL (81-99); MONOCYTES # (AUTO) 0.2 (0.2-0.8); MONOCYTES % 2.8 % (4.4-11.3); NEUTROPHILS # (AUTO) 6.2 (2.1-6.9); NEUTROPHILS % 86.7 % (38.7-80.0); PLATELET COUNT 192 x10e3/uL (140-360); RED BLOOD COUNT 4.03 x10e6/uL (3.6-5.1)
[2020-07-07 10:39] LABS: INR 1.48; PROTHROMBIN TIME 18.7 seconds (11.9-14.5)
[2020-07-07 10:40] LABS: PARTIAL THROMBOPLASTIN TIME 24.4 seconds (23.8-35.5)
[2020-07-07 10:51] LABS: ALBUMIN/GLOBULIN RATIO 1.5 (0.8-2.0); ANION GAP 28.4 mmol/L (8-16); CALCIUM 9.3 mg/dL (8.4-10.2); CREATININE, SERUM 2.16 mg/dL (0.57-1.11); MAGNESIUM 2.5 MG/DL (1.3-2.1); POTASSIUM 3.4 mmol/L (3.5-5.1)
[2020-07-07 10:58] LABS: CREATINE KINASE MB 6.6 ng/mL (0-5.0)
[2020-07-07] MEDS ORDERED: INSULIN REGULAR, HUMAN 100 UNIT/1 ML 3ML VIAL IV ONE (11:00)
[2020-07-07] MEDS ORDERED: NPH, HUMAN INSULIN ISOPHANE 100 UNIT/1 ML 3ML VIAL ONE (11:06)
[2020-07-07] MEDS ORDERED: PIPER-TAZ 3.375 GM 50 ML IV ONE (12:00)
[2020-07-07] MEDS ORDERED: DEXTROSE 50% SYRINGE 50 ML IV PRN (12:00)
[2020-07-07] MEDS ORDERED: INSULIN REGULAR, HUMAN 3ML VL 100 UNIT in SODIUM CHLORIDE 0.45% 100 ML 100 ML IV SCH ×2 (12:00)
[2020-07-07 12:14] LABS: BILIRUBIN,URINE NEGATIVE (NEGATIVE); CLARITY,URINE CLOUDY (CLEAR); COLOR,URINE YELLOW (YELLOW); KETONES,URINE NEGATIVE (NEGATIVE); LEUKOCYTE ESTERASE ,URINE SMALL (NEGATIVE); NITRITE,URINE NEGATIVE (NEGATIVE); PROTEIN,URINE DIPSTICK >=300 (NEGATIVE); URINE UROBILINOGEN 0.2 mg/dL (0.2 - 1)
[2020-07-07 12:24] LABS: BACTERIA,URINE MANY /HPF; EPITHELIAL CELLS,URINE RARE /LPF; RBC,URINE 0-5 /HPF (0-5); WBC,URINE (MAN) 0-5 /HPF (0-5)
[2020-07-07] MEDS ORDERED: POTASSIUM CHLORIDE 20MEQ/15ML UDC ONE (12:32)
[2020-07-07 12:53] LABS: ABG PCO2 34 mmHg (35-45); ABG PH 7.24 (7.35-7.45); ABG PO2 99 mmHg (80-105)
[2020-07-07 12:54] LABS: ABG HCO3 15 mmol/L (22-26); ABG TCO2 16
[2020-07-07] MEDS ORDERED: INSULIN REGULAR, HUMAN 3ML VL 100 UNIT in SODIUM CHLORIDE 0.9% 99 ML SQ SCH ×2 (13:00)
[2020-07-07] MEDS ORDERED: SODIUM CHLORIDE 0.9% 1000ML 1,000 ML ONE (13:13)
[2020-07-07] MEDS ORDERED: ONDANSETRON HCL INJ 2MG/ML 2ML 2 MG/ML VIAL ONE (13:16)
== END 2020-07-07 13:27 | disposition other institution (70) ==
LOC: ER 09:45
DX: A41.9 Sepsis, unspecified organism (principal); E11.10 Type 2 diabetes mellitus with ketoacidosis without coma; E11.65 Type 2 diabetes mellitus with hyperglycemia; I60.9 Nontraumatic subarachnoid hemorrhage, unspecified; I10 Essential (primary) hypertension; G40.909 Epilepsy, unspecified, not intractable, without status epilepticus; E78.5 Hyperlipidemia, unspecified; Z86.73 Personal history of transient ischemic attack (TIA), and cerebral infarction without residual deficits; Z11.59 Encounter for screening for other viral diseases
CPT/HCPCS: 36415; 36600; 51700; 70450; 70486; 71250; 72125; 74176; 80053; 81001; 82550; 82553; 82805; 83605; 83735; 84484; 85025; 85610; 85730; 87040; 87086; 87186; 93005; 99285; J2405; J2543; J7030; U0002; J1817

== ENCOUNTER 2020-11-07 16:31 | Emergency (ER) | payer MEDICARE ==
[~2020-11-07] VITALS: Ht 149.9 cm; Wt 39.5 kg
[2020-11-07 18:46] VITALS: BP 127/75
== END 2020-11-07 18:48 | disposition home or self-care (01) ==
LOC: ER 16:51
DX: S00.81XA Abrasion of other part of head, initial encounter (principal); E11.22 Type 2 diabetes mellitus with diabetic chronic kidney disease; I12.9 Hypertensive chronic kidney disease with stage 1 through stage 4 chronic kidney disease, or unspecified chronic kidney disease; N18.9 Chronic kidney disease, unspecified; E78.5 Hyperlipidemia, unspecified; R56.9 Unspecified convulsions; W19.XXXA Unspecified fall, initial encounter; Y92.009 Unspecified place in unspecified non-institutional (private) residence as the place of occurrence of the external cause; Z86.73 Personal history of transient ischemic attack (TIA), and cerebral infarction without residual deficits; Z79.4 Long term (current) use of insulin; Z79.82 Long term (current) use of aspirin
CPT/HCPCS: 70450; 70486; 72125; 99283